=== PATIENT | male | born 1940 | race Caucasian/White ===

== ENCOUNTER → 2018-06-03 06:51 | Outpatient (CLI) | payer MEDICARE, OTHER, SELFPAY ==
[2018-06-03 08:54] LABS: Add Manual Diff / Slide Review NO; Basophils Percent Auto 0.9 % (0-2); Hematocrit 46.8 % (41-53); Hemoglobin 16.1 g/dL (13.5-17.5); Lymphocytes Percent Auto 34.8 % (25-40); Mean Corpuscular HGB Conc 34.3 % (30-36); Mean Corpuscular Hemoglobin 31.5 PG (26-34); Mean Corpuscular Volume 91.9 fL (80-100); Monocytes Percent Auto 7.5 % (3-14); Neutrophils Absolute Auto 2800 /uL (3000-5900); Neutrophils Percent Auto 52.8 % (50-75); Platelet Count 206 X10^3/uL (150-400); Red Blood Cell Count 5.09 X10^6/uL (4.5-5.9); Red Cell Distribution Width 12.8 % (11.6-14.8); White Blood Cell Count 5.4 X10^3/uL (4.5-11.0)
[2018-06-03 09:34] LABS: Alanine Aminotransferase 32 IU/L (21-72); Albumin 4.3 g/dL (3.5-5.0); Albumin Globulin Ratio 1.5 (1.0-2.8); Alkaline Phosphatase 36 U/L (38-126); Aspartate Aminotransferase 27 IU/L (17-59); Bilirubin Total 0.9 mg/dL (0.2-1.3); Blood Urea Nitrogen 22 mg/dL (9-20); Calcium 9.6 mg/dL (8.4-10.2); Carbon Dioxide 31 mmol/L (22-32); Chloride 103 mmol/L (98-107); Cholesterol 137 mg/dL (140-199); Estimated Glomerular Filt Rate > 60.0 mL/min (>60); Globulin 2.8 g/dL (1.7-4.1); Glucose 85 mg/dL (80-110); HDL Cholesterol 45 mg/dL (40-60); HEMOLYSIS < 15 (0-50); LDL Cholesterol Calculated 76 mg/dL (<100); Potassium 4.4 mmol/L (3.4-5.1); Sodium 144 mmol/L (137-145); Total Protein 7.1 g/dL (6.3-8.2); Triglycerides 82 mg/dL (35-150)
[2018-06-03 11:04] LABS: TSH w/ Reflex to FT4 2.77 uIU/mL (0.47-4.68)
== END ==
PROVIDERS: Family Provider Family Medicine; PCP Family Medicine; Visit Provider Family Medicine
DX: E78.5 Hyperlipidemia, unspecified (principal); I10 Essential (primary) hypertension; N40.0 Benign prostatic hyperplasia without lower urinary tract symptoms
CPT/HCPCS: 36415; 80053; 80061; 84153; 84443; 85025

== ENCOUNTER 2019-03-10 11:56 | Day surgery (SDC) | payer MEDICARE, OTHER, SELFPAY ==
[2019-03-10 12:40] VITALS: BMI 21.1
[2019-03-10 12:46] VITALS: BP 125/78; PULSE 62; RESP 17; TEMP 36.3; O2SAT 98
[2019-03-10] MEDS: SODIUM CHLORIDE 0.9% 1,000 ML 200 ML IV (13:01)
--- NOTE | 2019-03-10 13:04 | PM.HP.1 ---
History of Present Illness Date Patient Seen: 03/10/19 Time Patient Seen: 13:04 Chief complaint: [id number] Narrative: 78-year-old man presents for screening colonoscopy. Last colonoscopy approximately 16 years ago, no personal family history of colon polyps or colorectal cancers. He tolerated his prep well. No intestinal complaints, Patient History Medical History (Updated 03/10/19 @ 12:32 by Bib Elizabeth RN) Bruises easily (Acute) Constipation (Acute) Hearing aid worn (Acute) Hyperlipidemia (Acute) Urinary frequency (Acute) Wears glasses (Acute) Acne (Chronic 1957) Eczema (Chronic 2001) Hearing loss (Chronic 2008) Hip pain (Chronic 2008) Hypertension (Chronic 1994) Knee pain (Chronic 2008) Migraines (Chronic 1995) Osteoarthritis (Chronic 2011) BCC (basal cell carcinoma of skin) (Resolved 2002) Chicken pox (Resolved 1947) Measles (Resolved 1948) Mononucleosis (Resolved) Mumps (Resolved 1949) Plantar warts (Resolved 1958) SCCA (squamous cell carcinoma) of skin (Resolved 2006) Scarlet fever (Resolved) Seborrheic keratosis (Resolved 2007) Surgical History (Updated 06/06/18 @ 10:38 by Juliana Diaz) Anesthesia (Resolved) History of tonsillectomy (Resolved 1948) Family History (Updated 06/06/18 @ 10:39 by Juliana Diaz) Mother Heart disease Hypertension Hyperlipidemia Pacemaker Father COPD (chronic obstructive pulmonary disease) Sister No problems noted. Sister No problems noted. Family/Other No problems noted. Family/Other No problems noted. Social History household members: spouse Smoking Status: Former smoker Family & Social History Family History (Updated 06/06/18 @ 10:39 by Juliana Diaz) Mother Heart disease Hypertension Hyperlipidemia Pacemaker Father COPD (chronic obstructive pulmonary disease) Sister No problems noted. Sister No problems noted. Family/Other No problems noted. Family/Other No problems noted. Social History: household members spouse Tobacco & Substance use: Smoking Status Former smoker Meds Home Medications Medication Instructions Recorded Confirmed Type ASPIRIN (#ASPIRIN) 81 mg PO EVERY OTHER DAY #0 05/07/13 03/10/19 History rosuvastatin 10 mg tablet 10 mg PO QDAY #90 tab 06/09/18 03/10/19 Rx acyclovir 200 mg capsule 200 mg PO BID #90 tab 08/18/18 03/10/19 Rx lisinopril 20 mg tablet 20 mg PO QDAY #90 tab 08/18/18 03/10/19 Rx tamsulosin 0.4 mg capsule 0.8 mg PO QDAY #180 tab 08/18/18 03/10/19 Rx varicella-zoster glycoE [id number] 50 mcg IM ONCE #1 each 11/06/18 03/10/19 Rx adj(PF) 50 mcg/0.5 mL IM susp, kit Allergies Allergy/AdvReac Type Severity Reaction Status Date / Time No Known Drug Allergies Allergy Verified 03/10/19 12:33 Review of Systems Constitutional Constitutional: Denies fever(s) Eyes Eyes: Denies bulging eyes ENT Ears, Nose, Mouth, and Throat: No lip swelling Cardiovascular Cardiovascular: Denies generalize swelling Respiratory Respiratory: Denies stridor Gastrointestinal Gastrointestinal: Denies coffee ground emesis Musculoskeletal Musculoskeletal: Denies loss of height Integumentary/Breasts Skin/Breast: Denies wounds Neurologic Neurologic: Denies abnormal speech and Denies confusion Psychiatric Psychiatric: Denies confusion Endocrine Endocrine: Denies deepening of the voice Hematologic/Lymphatic Hematologic/Lymphatic: Denies lymphadenopathy Allergic/Immunologic Allergic/Immunologic: Denies lip swelling Exam Vital Signs (past 8 hours): - 03/10/19 12:46 Temperature 97.4 F L Pulse Rate 62 Respiratory Rate 17 Blood Pressure 125/78 Pulse Oximetry 98 Oxygen Delivery Method Room Air Const General: cooperative and healthy appearing Orientation: alert HENIL Head: normal to inspection Nose: nares normal Mouth: oral mucosae normal and lip normal Eyes Eyelids: eyelids normal Conjunctivae: conjunctivae normal Sclera: sclerae normal Neck Neck: supple and other (No thyromegally) Chest Chest: other (LCTAB , regular respiratory effort) Cardio Rhythm: regular rhythm Heart Sounds: S1 normal, S2 normal, no gallops, no murmurs and no rubs GI Other: abd soft nontender non distended Skin General: no rashes or lesions noted Neuro General: alert and awake Psych Appearance: grossly normal Affect: normal affect Assessment & Plan Assessment & Plan narrative: 78-year-old man here to proceed with screening colonoscopy Risks and benefits of the procedure discussed. Risks including , perforation, missed lesion, hypoxia all discussed Ready to proceed
[2019-03-10] MEDS: GLUCAGON,HUMAN RECOMBINANT 1 MG/ML VIAL IV (13:59)
[2019-03-10] MEDS: MIDAZOLAM 5 MG/5 ML VIAL IV (14:08)
[2019-03-10] MEDS: fentaNYL 250 MCG/5 ML INJ IV (14:09)
[2019-03-10 14:27] VITALS: BP 111/67; PULSE 66; RESP 19; TEMP 36.2; O2SAT 97
--- NOTE | 2019-03-10 14:29 | P.OP.ENDO_ITS ---
Operative Date/Time/Diagnoses Date of procedure: 03/10/19 Time of procedure: 14:25 Pre-op diagnosis: Screening colonoscopy Post-op diagnosis: same Procedure & Clinicians Study performed: Screening colonoscopy Same procedure as scheduled: Yes Indications: Healthy 78-year-old man presents for screening colonoscopy with average risk of colorectal cancer, last screening colonoscopy 17 years ago. Surgeon: Shaun Churchill Procedure Notes SCOAP/Timeout: Completed Procedure in detail: The patient was brought to the endoscopy suite time-out was completed. He was sedated with fentanyl and midazolam for a total of 4 of mida zolam and 62.5 of fentanyl given sequential over the course of his endoscopy. A digital rectal exam was performed that identified a very large but soft prostate and no palpable anal or rectal lesions. 160 cm colonoscope was then introduced and navigated through the rectum sigmoid colon through the flexures and into the cecum. The cecum was identified by the presence of the appendiceal orifice and a prominent ileocecal valve. The scope was then slowly withdrawn for total scope withdrawal time of 10 minutes. During the course of this all debris within the colon was suctioned and irrigated away so as to have adequate visualization of the mucosa. There were no lesions identified. The patient did have a significant amount of sigmoid diverticulosis without evidence of active infection. The scope was retroflexed within the distal rectum and no anal canal or distal rectal lesions were identified. The scope was fully withdrawn. Patient tolerated the procedure well, prep was adequate Scope withdrawal time: 10 minutes Sedation minutes: 30 Findings: diverticulosis Impression: One: Enlarged prostate Two: Sigmoid diverticulosis Recommendations: Colonscopy in 10 years Plan for aftercare: PACU and then home Follow up: as needed Disposition: PACU
[2019-03-10 14:32] VITALS: BP 113/71; PULSE 63; RESP 18; O2SAT 98
[2019-03-10 14:43] VITALS: BP 126/79; PULSE 79; RESP 15; TEMP 36.1; O2SAT 97
[2019-03-10 15:10] VITALS: BP 117/72; PULSE 65; RESP 16; TEMP 36.6; O2SAT 98
== END 2019-03-10 15:15 | disposition home or self-care (01) ==
PROVIDERS: PCP Family Medicine; Visit Provider Surgery
PROC: 0DJD8ZZ Inspection of Lower Intestinal Tract, Via Natural or Artificial Opening Endoscopic (ICD-10-PCS; CPT 45378; principal; 2019-03-10 13:00)
DX: Z12.11 Encounter for screening for malignant neoplasm of colon (principal); K57.30 Diverticulosis of large intestine without perforation or abscess without bleeding; N40.0 Benign prostatic hyperplasia without lower urinary tract symptoms; I10 Essential (primary) hypertension; E78.5 Hyperlipidemia, unspecified
CPT/HCPCS: G0121; 99152; 99153; J1610; J2250; J3010

== ENCOUNTER 2019-06-27 07:28 | Emergency (ER) | payer MEDICARE, OTHER, SELFPAY ==
[2019-06-27 07:35] VITALS: BP 150/68; PULSE 73; RESP 14; TEMP 36.2; O2SAT 97
--- NOTE | 2019-06-27 07:35 | ED_ITS ---
HPI - Chest Pain General Chief Complaint: Chest Pain Stated Complaint: tightness in chest shortness of breath Time Seen by Provider: 06/27/19 07:35 Source: patient Mode of arrival: ambulatory Limitations: no limitations History of Present Illness HPI narrative: Patient is a 78-year-old male with history of hypertension Cady presenting with increasing shortness of breath. He states 2 weeks ago he woke up with a leg cramp in his left leg he says that happen sometimes. He has not noticed significant pain while walking. However over the last 2 days he has noticed significant increasing shortness of breath with exertion. He has a 2-year-old grandson who he lives with he has noticed that he gets out of breath quite easily while playing with him. Also yesterday he took out the garbage cans something he does easily and noticed he was very short of breath. He says he does have some low-grade chest discomfort he can tell some things happening but it is not severe he wants nothing for pain. He denies any orthopnea. He does feel like his left leg is a little more swollen than his right. He has a nonproductive cough no fevers no nausea vomiting. Patient has had multiple family members on his mother's side answer uncles and grandfather have heart attacks and diet from them in their 50s. He thought sin ce he made it to 78 he was home free. Related Data Home Medications Medication Instructions Recorded Confirmed ASPIRIN (#ASPIRIN) 81 mg PO EVERY OTHER DAY #0 05/07/13 03/10/19 Previous Rx's Medication Instructions Recorded rosuvastatin 10 mg tablet 10 mg PO QDAY #90 tab 06/09/18 acyclovir 200 mg capsule 200 mg PO BID #90 tab 08/18/18 lisinopril 20 mg tablet 20 mg PO QDAY #90 tab 08/18/18 tamsulosin 0.4 mg capsule 0.8 mg PO QDAY #180 tab 08/18/18 varicella-zoster gE-AS01B (PF) 50 50 mcg IM ONCE #1 each 11/06/18 mcg/0.5 mL IM susp, kit Allergies Allergy/AdvReac Type Severity Reaction Status Date / Time No Known Drug Allergies Allergy Verified 06/27/19 07:38 Review of Systems Review of Systems ROS Unobtainable: All systems reviewed & are unremarkable except as noted in HPI and below Constitutional Constitutional: Denies chills, Denies fatigue, Denies fever(s), Denies lethargy and Denies weakness Eyes Eyes: Denies change in vision, Denies eye discharge, Denies irritation and Denies loss of vision ENT Ears, Nose, Mouth, and Throat: Denies change in voice, Denies neck pain and Denies sore throat Cardiovascular Cardiovascular: Reports as per HPI, Reports chest pain, Denies diaphoresis, Denies syncope, Reports leg edema, Denies lightheadedness, Reports dyspnea, Reports dyspnea on exertion and Denies orthopnea Respiratory Respiratory: Reports as per HPI, Reports cough, Denies excessive phlegm production, Denies pain on inspiration, Reports dyspnea, Reports dyspnea on exertion and Denies wheezing Gastrointestinal Gastrointestinal: Denies abdominal pain, Denies change in bowel habits, Denies diarrhea, Denies nausea and Denies vomiting Genitourinary Genitourinary: Denies hematuria, Denies flank pain, Denies urinary incontinence and Denies urinary urgency Musculoskeletal Musculoskeletal: Denies neck pain Integumentary/Breasts Skin/Breast: Denies pruritus, Denies erythema, Denies rash and Denies wounds Neurologic Neurologic: Denies confusion, Denies syncope, Denies loss of vision and Denies weakness Psychiatric Psychiatric: Denies anxiety, Denies confusion, Denies depression, Denies homicidal ideation and Denies suicidal ideation Endocrine Endocrine: Denies fatigue and Denies flushing Allergic/Immunologic Allergic/Immunologic: Denies wheezing [facility] Medical History Acne (Chronic 1957) BCC (basal cell carcinoma of skin) (Resolved 2002) Bruises easily (Acute) Chicken pox (Resolved 1947) Constipation (Acute) Eczema (Chronic 2001) Hearing aid worn (Acute) Hearing loss (Chronic 2008) Hip pain (Chronic 2008) Hyperlipidemia (Acute) Hypertension (Chronic 1994) Knee pain (Chronic 2008) Measles (Resolved 194) Migraines (Chronic 1995) Mononucleosis (Resolved) Mumps (Resolved 1949) Osteoarthritis (Chronic 2011) Plantar warts (Resolved 1958) Scarlet fever (Resolved) SCCA (squamous cell carcinoma) of skin (Resolved 2006) Seborrheic keratosis (Resolved 2007) Urinary frequency (Acute) Wears glasses (Acute) Surgical History Anesthesia (Resolved) History of tonsillectomy (Resolved 1948) Family History (Updated 06/06/18 @ 10:39 by Juliana Diaz) Mother Heart disease Hypertension Hyperlipidemia Pacemaker Father COPD (chronic obstructive pulmonary disease) Sister No problems noted. Sister No problems noted. Family/Other No problems noted. Family/Other No problems noted. Social History household members: spouse Smoking Status: Former smoker Family History Mother Heart disease Hypertension Hyperlipidemia Pacemaker Father COPD (chronic obstructive pulmonary disease) Sister No problems noted. Sister No problems noted. Family/Other No problems noted. Family/Other No problems noted. Social History household members: spouse Smoking Status: Former smoker Exam Initial Vital Signs Initial Vital Signs: Vital Signs Temperature 97.2 F L 06/27/19 07:35 Pulse Rate 73 06/27/19 07:35 Respiratory Rate 14 06/27/19 07:35 Blood Pressure 150/68 H 06/27/19 07:35 Pulse Oximetry 97 06/27/19 07:35 GENERAL: Alert well-appearing elderly male and in no acute distress. HEENT: Head atraumatic,EOMI, pupils reactive, face symmetric, moist mucous membranes CARDIOVASCULAR: Regular rate and rhythm without murmurs, rubs or gallops. RESPIRATORY: Breath sounds equal bilaterally, no wheezes rales or rhonchi. ABDOMEN: Soft, nontender. Normoactive bowel sounds all 4 quadrants. No guarding or rebound. EXTREMITIES: Normal range of motion, no clubbing or edema. Neurovascularly intact Left lower leg minimal calf tenderness NEUROLOGICAL: Alert and oriented x4.Normal gait and speech. Cranial nerves II through XII grossly intact. SKIN: Warm, dry, no laceration, no petechiae, no rashes or lesions. Course Orders Ordered: ED Orders 06/27/19 07:34 EKG-12 Lead Stat 06/27/19 07:45 B Type Natriuretic Peptide Stat Complete Blood Count AUTO DIFF Stat Comprehensive Metabolic Panel Stat D Dimer Stat Lipase Stat Partial Thromboplastin Time Stat Prothrombin Time INR Stat Troponin & CK Cardiac Panel Stat 06/27/19 07:46 XR chest 1V Stat 06/27/19 07:47 US periph venous low extrem lt Stat Discontinued Medications Aspirin (Aspirin Chew) 324 mg PO NOW ONE Stop: 06/27/19 07:47 Last Admin: 06/27/19 08:07 Dose: 324 mg Documented by: MIS Vital Signs Vital signs: Vital Signs - 8 hr 06/27/19 07:35 06/27/19 08:00 06/27/19 08:36 Temperature 97.2 F L Pulse Rate 73 67 60 Respiratory Rate 14 15 16 Blood Pressure 150/68 H Blood Pressure [Right Arm] 119/66 130/68 Pulse Oximetry 97 94 96 06/27/19 11:07 06/27/19 11:35 Temperature Pulse Rate 64 Respiratory Rate 12 Blood Pressure 122/71 Blood Pressure [Right Arm] 122/70 Pulse Oximetry MDM - Chest Pain Lab Data Attestation: I reviewed the patient's lab results. Result diagrams: 06/27/19 07:45 06/27/19 07:45 Labs: Lab Results 06/27/19 06/27/19 06/27/19 Range/Units 07:45 07:45 07:45 WBC 5.5 (4.5-11.0) X10^3/uL RBC 5.10 (4.5-5.9) X10^6/uL Hgb 16.1 (13.5-17.5) g/dL Hct 46.5 (41-53) % MCV 91.2 (80-100) fL MCH 31.5 (26-34) PG MCHC 34.6 (30-36) % RDW 13.5 (11.6-14.8) % Plt Count 190 (150-400) X10^3/uL Neut % (Auto) 56.8 (50-75) % Lymph % (Auto) 31.0 (25-40) % [place] % (Auto) 6.0 (3-14) % Eos % (Auto) 5.3 H (2-4) % Baso % (Auto) 0.9 (0-2) % Neut # (Auto) 3100 (9845-0397) /uL Lymph # (Auto) 1700 (0938-5010) /uL [place] # (Auto) 300 (0-900) /uL Eos # (Auto) 300 (0-450) /uL Baso # (Auto) 0 (0-100) /uL PT 11.0 (10.1-12.7) SECONDS INR 1.0 (0.9-1.3) APTT 32 (26.4-36.2) SECONDS D-Dimer < 200 (<230) ng/mL Sodium 140 (137-145) mmol/L Potassium 4.0 (3.4-5.1) mmol/L Chloride 106 (98-107) mmol/L Carbon Dioxide 24 (22-32) mmol/L BUN 20 (9-20) mg/dL Creatinine 0.90 (0.66-1.25) mg/dL Estimated GFR > 60.0 (>60) mL/min BUN/Creatinine Ratio 22.2 H (6-22) Glucose 132 H (80-110) mg/dL Calcium 9.6 (8.4-10.2) mg/dL Total Bilirubin 0.8 (0.2-1.3) mg/dL AST 23 (17-59) IU/L ALT 22 (21-72) IU/L Alkaline Phosphatase 39 (38-126) U/L Total Creatine Kinase 179 H (55-170) U/L CK-MB (CK-2) 2.40 H (<2.37) ng/mL CK-MB (CK-2) Rel Index 1.3 L (1.5-5.0) % Troponin I < 0.012 (0.01-0.034) ng/mL B-Natriuretic Peptide < 100 (<100) Total Protein 7.2 (6.3-8.2) g/dL Albumin 4.5 (3.5-5.0) g/dL Globulin 2.7 (1.7-4.1) g/dL Albumin/Globulin Ratio 1.7 (1.0-2.8) Lipase 53 (23-300) U/L Imaging Data Chest x-ray: Radiologist's impression: PROCEDURE: XR CHEST 1V INDICATIONS: short of breath TECHNIQUE: One view of the chest was acquired. COMPARISON: [facility], , CHEST 2 VIEW, 01/10/2017, 10:25. FINDINGS: Surgical changes and devices: None. Lungs and pleura: Lungs are clear. The aeration of the lungs is similar to the previous exam. No pleural effusions or pneumothorax. Mediastinum: Mediastinal contours appear normal. Heart size is normal. There is aortic atherosclerosis. Bones and chest wall: No suspicious bony lesions. Widening of the bilateral acromioclavicular joints is present, which may be related to surgery or previous trauma. Overlying soft tissues appear unremarkable. IMPRESSION: Stable chest. No acute cardiopulmonary process is evident. Dictated by: Javy Arriaga M.D. on 06/27/2019 at 7:25 Venous US: Radiologist's impression: PROCEDURE: US PERIPH VENOUS LOW EXTREM LT INDICATIONS: SWELLING AND PAIN TECHNIQUE: Real-time imaging, as well as color and pulse Doppler interrogation, were per formed of the lower extremity deep veins from the inguinal ligament to the popliteal fossa. COMPARISON: None. FINDINGS: The common femoral, femoral and popliteal veins are normally compressible, and free of intraluminal thrombus. Color and pulse Doppler demonstrate normal phasic intraluminal flow. There is normal augmentation response to distal compression maneuver. Targeted sonographic imaging of the left calf was performed at the site of the patient's area of pain/concern. At this location there are 2 small hypoechoic regions identified within the gastrocnemius muscle. There may be a trace amount of fluid extending along the aponeurosis between the gastrocnemius and soleus muscles. IMPRESSION: 1. No evidence of upper extremity deep vein thrombosis. 2. Hypoechoic regions within it the left gastrocnemius muscle probably represent small intramuscular tears versus hematomas. The need for better characterization utilizing MRI may be determined clinically. Dictated by: Javy Arriaga M.D. on 06/27/2019 at 7:55 Approved by: Javy Arriaga M.D. on 06/27/2019 at 7:57 ECG Data Attestation: I personally reviewed and interpreted this ECG as follows: Prior ECG tracings: not available for review Interpretation: Normal sinus rhythm rate 73 p.r. interval 180 QRS 106 QTC 398 Q- wave noted in lead [address] elevations no depressions or T-wave inversions MDM Narrative Medical decision making narrative: Patient has no EKG changes negative troponin negative BM negative D-dimer negative venous ultrasound. However his symptoms of shortness of breath with exertion all are quite concerning. He even states that he had difficulty walking from the parking lot into the emergency department. Unfortunately [facility] does not have capability stress test over the weekend. In patient will need to be transferred 9:[address] Billings hospitalist [facility] as an update on patient's symptoms test results. He happily accepts patient request he be kept NPO for possible stress test today Initially patient hesitant about going to [facility] for stress test wanted outpatient follow-up instead. I spoke with Dr. Aaron in regards to outpatient stress test it is questionable if it could be done next week. Patient actually agrees to be transferred to [facility] for stress test. Discharge Plan Departure Patient Disposition: [facility] Clinical Impression: Chest pain Qualifiers: Chest pain type: unspecified Qualified Code(s): R07.9 - Chest pain, unspecified Discharge Date/Time: 06/27/19 11:39 Prescriptions: No Action ASPIRIN (#ASPIRIN) 81 mg PO EVERY OTHER DAY Qty: 0 RF: 0 tamsulosin [Flomax] 0.4 mg capsule 0.8 mg PO QDAY Qty: 180 RF: 3 lisinopril [Prinivil] 20 mg tablet 20 mg PO QDAY Qty: 90 RF: 3 acyclovir [Zovirax] 200 mg capsule 200 mg PO BID Qty: 90 RF: 3 rosuvastatin [Crestor] 10 mg tablet 10 mg PO QDAY Qty: 90 RF: 1 varicella-zoster [id number]-AS01B (PF) [Shingrix (PF)] 50 mcg/0.5 mL suspension for reconstitution 50 mcg IM ONCE Qty: 1 RF: 0 Referrals: Keena Michel DO [Primary Care Provider] - Stand Alone Forms: Against Medical Advice
--- NOTE | 2019-06-27 07:46 | DI.RAD.S_ITS ---
PROCEDURE: XR CHEST 1V INDICATIONS: short of breath TECHNIQUE: One view of the chest was acquired. COMPARISON: [facility], , CHEST 2 VIEW, 01/10/2017, 10:25. FINDINGS: Surgical changes and devices: None. Lungs and pleura: Lungs are clear. The aeration of the lungs is similar to the previous exam. No pleural effusions or pneumothorax. Mediastinum: Mediastinal contours appear normal. Heart size is normal. There is aortic atherosclerosis. Bones and chest wall: No suspicious bony lesions. Widening of the bilateral acromioclavicular joints is present, which may be related to surgery or previous trauma. Overlying soft tissues appear unremarkable. IMPRESSION: Stable chest. No acute cardiopulmonary process is evident. Dictated by: Javy Arriaga M.D. on 06/27/2019 at 7:25 Approved by: Javy Arriaga M.D. on 06/27/2019 at 7:25
--- NOTE | 2019-06-27 07:47 | DI.US.S_ITS ---
PROCEDURE: US PERIPH VENOUS LOW EXTREM LT INDICATIONS: SWELLING AND PAIN TECHNIQUE: Real-time imaging, as well as color and pulse Doppler interrogation, were performed of the lower extremity deep veins from the inguinal ligament to the popliteal fossa. COMPARISON: None. FINDINGS: The common femoral, femoral and popliteal veins are normally compressible, and free of intraluminal thrombus. Color and pulse Doppler demonstrate normal phasic intraluminal flow. There is normal augmentation response to distal compression maneuver. Targeted sonographic imaging of the left calf was performed at the site of the patient's area of pain/concern. At this location there are 2 small hypoechoic regions identified within the gastrocnemius muscle. There may be a trace amount of fluid extending along the aponeurosis between the gastrocnemius and soleus muscles. IMPRESSION: 1. No evidence of upper extremity deep vein thrombosis. 2. Hypoechoic regions within it the left gastrocnemius muscle probably represent small intramuscular tears versus hematomas. The need for better characterization utilizing MRI may be determined clinically. Dictated by: Javy Arriaga M.D. on 06/27/2019 at 7:55 Approved by: Javy Arriaga M.D. on 06/27/2019 at 7:57
[2019-06-27 07:55] LABS: Add Manual Diff / Slide Review NO; Basophils Absolute Auto 0 /uL (0-100); Basophils Percent Auto 0.9 % (0-2); Eosinophils Absolute Auto 300 /uL (0-450); Eosinophils Percent Auto 5.3 % (2-4); Hematocrit 46.5 % (41-53); Hemoglobin 16.1 g/dL (13.5-17.5); Lymphocytes Absolute Auto 1700 /uL (1100-4500); Mean Corpuscular HGB Conc 34.6 % (30-36); Mean Corpuscular Hemoglobin 31.5 PG (26-34); Mean Corpuscular Volume 91.2 fL (80-100); Monocytes Absolute Auto 300 /uL (0-900); Neutrophils Absolute Auto 3100 /uL (1500-7000); Neutrophils Percent Auto 56.8 % (50-75); Platelet Count 190 X10^3/uL (150-400); Red Cell Distribution Width 13.5 % (11.6-14.8); White Blood Cell Count 5.5 X10^3/uL (4.5-11.0)
[2019-06-27 08:00] VITALS: BP 119/66; PULSE 67; RESP 15; O2SAT 94
[2019-06-27 08:00] LABS: Alanine Aminotransferase 22 IU/L (21-72); Albumin 4.5 g/dL (3.5-5.0); Albumin Globulin Ratio 1.7 (1.0-2.8); Alkaline Phosphatase 39 U/L (38-126); Aspartate Aminotransferase 23 IU/L (17-59); BUN Creatinine Ratio 22.2 (6-22); Bilirubin Total 0.8 mg/dL (0.2-1.3); Blood Urea Nitrogen 20 mg/dL (9-20); Calcium 9.6 mg/dL (8.4-10.2); Carbon Dioxide 24 mmol/L (22-32); Chloride 106 mmol/L (98-107); Creatine Kinase 179 U/L (55-170); D Dimer < 200 ng/mL (<230); Estimated Glomerular Filt Rate > 60.0 mL/min (>60); Globulin 2.7 g/dL (1.7-4.1); Glucose 132 mg/dL (80-110); HEMOLYSIS < 15 (0-50); Lipase 53 U/L (23-300); PTT Partial Thromboplastin Tim 32 SECONDS (26.4-36.2); Sodium 140 mmol/L (137-145); Total Protein 7.2 g/dL (6.3-8.2)
[2019-06-27] MEDS: ASPIRIN 81 MG CHEW TAB 324 MG PO (08:07)
[2019-06-27 08:11] LABS: B Type Natriuretic Peptide < 100 (<100)
[2019-06-27 08:12] LABS: Troponin I < 0.012 ng/mL (0.01-0.034)
[2019-06-27 08:16] LABS: CKMB % Relative Index 1.3 % (1.5-5.0)
[2019-06-27 08:36] VITALS: BP 130/68; PULSE 60; RESP 16; O2SAT 96
[2019-06-27 11:07] VITALS: BP 122/70; PULSE 64; RESP 12
[2019-06-27 11:35] VITALS: BP 122/71
== END 2019-06-27 11:39 | disposition short-term general hospital (02) ==
PROVIDERS: Emergency Provider Emergency Medicine; PCP Family Medicine
DX: R07.9 Chest pain, unspecified (principal)
CPT/HCPCS: 71045; 80053; 82550; 82553; 83690; 83880; 84484; 85025; 85379; 85610; 85730; 93005; 93971; 99283; 99285

== ENCOUNTER → 2019-06-30 11:12 | Outpatient (CLI) | payer MEDICARE, OTHER, SELFPAY ==
--- NOTE | 2019-06-30 12:17 | PM.TREADMILL ---
Cardiac Stress Test Report Referral & Results Date Patient Seen: 06/30/19 Requesting provider: Keena Michel Indication: Chest pressure Rest ECG: Unremarkable Procedure Note: Today following both written and verbal informed consent, the patient was exercised according to a standard Michael protocol. The patient exercised for a total of 9 minutes 2nd achieving a maximum heart rate of 146. Patient's maximum systolic blood pressure was 160. This was an estimated 10.[address]-T segment changes identified Functional aerobic impairment way off the scale due to his age. Estimated exercise capacity equal to that of an active 56-year-old Single PVC identified Patient's heart rate did rapidly returned to baseline with cessation of activity, in less than 30 seconds actually Impression: Excellent exercise capacity No evidence of ischemia Please note: Actual ECG tracings can be found in the PACS system.
== END ==
PROVIDERS: PCP Family Medicine; Visit Provider Family Medicine
DX: R07.89 Other chest pain (principal)
CPT/HCPCS: 93016; 93017; 93018

== ENCOUNTER → 2019-07-21 06:53 | Outpatient (CLI) | payer MEDICARE, OTHER, SELFPAY ==
[2019-07-21 07:56] LABS: Blood Urea Nitrogen 23 mg/dL (9-20); Calcium 9.5 mg/dL (8.4-10.2); Carbon Dioxide 28 mmol/L (22-32); Chloride 105 mmol/L (98-107); Cholesterol 135 mg/dL (140-199); Estimated Glomerular Filt Rate > 60.0 mL/min (>60); Glucose 96 mg/dL (80-110); HDL Cholesterol 45 mg/dL (40-60); HEMOLYSIS < 15 (0-50); LDL Cholesterol Calculated 76 mg/dL (<100); Potassium 4.1 mmol/L (3.4-5.1); Sodium 141 mmol/L (137-145); Triglycerides 69 mg/dL (35-150)
[2019-07-21 08:25] LABS: Prostate Specific Antigen 1.37 ng/mL (0.10-4.00)
== END ==
PROVIDERS: PCP Family Medicine; Visit Provider Family Medicine
DX: Z13.6 Encounter for screening for cardiovascular disorders (principal); I10 Essential (primary) hypertension; Z12.5 Encounter for screening for malignant neoplasm of prostate
CPT/HCPCS: 36415; 80048; 80061; 84153; G0103

== ENCOUNTER → 2020-09-23 07:15 | Outpatient (CLI) | payer MEDICARE, OTHER, SELFPAY ==
[2020-09-23 09:02] LABS: Alanine Aminotransferase 25 IU/L (<50); Albumin 3.6 g/dL (3.5-5.0); Albumin Globulin Ratio 1.6 (1.0-2.8); Alkaline Phosphatase 33 U/L (38-126); Aspartate Aminotransferase 25 IU/L (17-59); BUN Creatinine Ratio 21.2 (6-22); Bilirubin Total 0.6 mg/dL (0.2-1.3); Blood Urea Nitrogen 21 mg/dL (9-20); Calcium 9.2 mg/dL (8.4-10.2); Carbon Dioxide 30 mmol/L (22-32); Chloride 106 mmol/L (98-107); Cholesterol 141 mg/dL (140-199); Estimated Glomerular Filt Rate > 60.0 mL/min (>60); Globulin 2.3 g/dL (1.7-4.1); Glucose 86 mg/dL (80-110); HDL Cholesterol 46 mg/dL (40-60); HEMOLYSIS < 15 (0-50); LDL Cholesterol Calculated 80 mg/dL (<100); Potassium 4.2 mmol/L (3.4-5.1); Sodium 138 mmol/L (137-145); Total Protein 5.9 g/dL (6.3-8.2); Triglycerides 73 mg/dL (35-150)
== END ==
PROVIDERS: PCP Family Medicine; Referring Provider Family Medicine; Visit Provider Family Medicine
DX: E78.5 Hyperlipidemia, unspecified (principal); N40.0 Benign prostatic hyperplasia without lower urinary tract symptoms; I10 Essential (primary) hypertension
CPT/HCPCS: 36415; 80053; 80061; 84153

== ENCOUNTER 2022-05-22 14:30 | Outpatient (RCR) | payer MEDICARE, OTHER, SELFPAY ==
--- NOTE | 2022-04-13 18:23 | PT.OIE ---
Current Diagnoses Muscle weakness (generalized) (04/13/22) Pain in right finger(s) (04/13/22) Past Medical History (Last Updated 06/02/20 @ 17:31 by JEANNETTE Avila) Acne (1957) BCC (basal cell carcinoma of skin) (2002) Bruises easily Chicken pox (194) Constipation Eczema (2001) Hearing aid worn Hearing loss (2008) Hip pain (2008) Hyperlipidemia Hypertension (1994) Impacted cerumen of both ears Knee pain (2008) Measles (194) Migraines (1995) Mononucleosis Mumps (1949) Neck muscle strain Osteoarthritis (2011) Plantar warts (195) Scarlet fever SCCA (squamous cell carcinoma) of skin (2006) Seborrheic keratosis (2007) Urinary frequency Wears glasses Past Surgical History (Last Reviewed 06/27/19 @ 07:52 by Kiya Sung DO) Anesthesia History of tonsillectomy (1948) Visit Care Team Role Provider Type Nadine Mcelod MD Attending Provider Physician Family Provider Primary Care Provider Referring Provider Specialty: Family Practice Address: [address] [place] [address], [facility] Email: [email or web address] Physical Therapy Initial Evaluation PT-OP-A Visit Information Start: 04/09/22 17:08 Freq: Status: Active Protocol: Document 04/13/22 13:04 LRN (Rec: 04/13/22 13:54 LRN [id number]) Out-Patient Physical Therapy Visit Information Visit Information Visit Type Initial Evaluation Visit Start Time 13:04 Visit Stop Time 13:51 Total Visit Minutes 51 Visit Number 1 Evaluation Information Evaluation Date 04/13/22 Precautions Precautions Mild concussion as child, Controlled HBP, 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 PT-OP-B Current Condition Start: 04/09/22 17:08 Freq: Status: Active Protocol: Document 04/13/22 13:04 LRN (Rec: 04/13/22 13:54 LRN [id number]) Current Condition History of Current Condition Onset Date March 24, 2022 Current Complaints R hand 5th digit: can't straighten DIP jt & difficulty flexing PIP jt. History of Current Condition Playing ball with 5 yr old grandson, misjudged the catch and it hit the R 5th digit straight on. After a week went to and told it was probably broken. Did not have X-ray taken. R hand: Little finger:can't straighten the DIP jt, and difficulty flexing with the PIP jt. Treatment Goals Patient/Caregiver Goals Pt goal with therapy is to get full range of motion of the R hand little finger, and gain horticultural farmworker strength of the little finger (opening jar). Can't use a tool like a hammer because when pounding the R little finger hurts. Gardening/Planting in yard. Prior Functional Status Baseline Function- ADL's Independent Baseline Function- Mobility Independent Baseline Function- Other Normal use of R hand. Pt is R handed. Current Functional Impairments (Reported) Functional Limitations- ADL's Can't actively straighten the R 5th digit DIP jt & difficulty bending R 5th digit PIP jt. Difficulty gripping and opening a jar. Personal Factors Other Personal Factors That May Effect L thumb arthritis. Therapy/Recovery PT-OP-C Subjective Start: 04/09/22 17:08 Freq: Status: Active Protocol: Document 04/13/22 13:04 LRN (Rec: 04/13/22 13:54 LRN [id number]) Patient Questionnaires Quick Dash- Upper Extremity Quick Dash UE Score 22.7 Quick Dash UE Impairment 20 to 39% Impaired (Score 20- 39) Quick Dash- Work and Sports Modules Quick Dash W&S Score Work Module 50 Quick Dash Work and Sport Impairment 40 to 59% Impaired (Score 40- 59) OP-PT Pain Assessment Pain Assessment Grid Paper Pain Assessment Grid Completed Yes Location R little finger Pain Location Details DIP & sometimes PIP jts Intensity 4 Scale Used Numeric (0 - 10) Description Throbbing,With Movement Frequency Constant Pain Aggravating Factors Changing Position Pain Alleviating Factors Medication Other Pain Alleviating Factors IBP daily PT-OP-H Neuro Start: 04/09/22 17:08 Freq: Status: Active Protocol: Document 04/13/22 13:04 LRN (Rec: 04/13/22 13:54 LRN [id number]) Sensation Evaluation Gross Sensation Gross Sensation WNL PT-OP-J Posture/Palpation/Skin Start: 04/09/22 17:08 Freq: Status: Active Protocol: Document 04/13/22 13:04 LRN (Rec: 04/13/22 18:22 LRN [id number]) Palpation Assessment Location R hand 5th digit Palpation Location DIP jt Palpation Details PIP jt: Decreased volar to dorsal and lateral to medial glide. DIP jt: Increased volar glide at DIP jt. PT-OP-K Range of Motion Start: 04/09/22 17:08 Freq: Status: Active Protocol: Document 04/13/22 13:04 LRN (Rec: 04/13/22 13:54 [facility] [id number]) Wrist Goniometric Range of Motion Wrist Right Wrist ROM WFL No Flexion Active (degrees) 60 Extension Active (degrees) 53 Ulnar Deviation Active (degrees) 35 Radial Deviation Active (degrees) 20 Left Wrist ROM WFL Yes Flexion Active (degrees) 71 Extension Active (degrees) 60 Ulnar Deviation Active (degrees) 20 Radial Deviation Active (degrees) 25 Finger Goniometric Range of Motion Finger Right Fifth Finger ROM WFL No MCP Flexion Active (degrees) 90 MCP Extension Active (degrees) 0 PIP Flexion Active (degrees) 66 DIP Flexion Active (70-90 degrees) 76 DIP Extension Passive (0 degrees) 0 H Tip to Base of Palm (0 cm) 4 H Comments DIP active ext lacks 62 deg's to neutral. Tip to Base of Palm - 4 cm Left Fifth Finger ROM WFL Yes MCP Flexion Active (degrees) 90 MCP Extension Active (degrees) 0 PIP Flexion Active (degrees) 96 DIP Flexion Active (70-90 degrees) 86 Tip to Distal Palmar Crease (0 cm) 0 H PT-OP-M Strength Start: 04/09/22 17:08 Freq: Status: Active Protocol: Document 04/13/22 13:04 LRSoraida (Rec: 04/13/22 13:54 [facility] [id number]) Wrist Strength Wrist Manual Muscle Testing Right Comments Generally 4+/5 Left Comments Generally 5/5 Finger/Thumb Strength Finger Manual Muscle Testing Right Fifth Flexion (fingers C8) 5 Normal Extension (thumb C8) 5 Normal Adduction 4 Good Abduction (fingers T1) 4+ Good+ Left Fifth Comments Generally 5/5 Hand Systems Integration Engineer/Pinch Strength Hand Dominance Hand Dominance Right Hand Strength Right Comments Systems Integration Engineer strength in kgs: 20, 23, 26 (avg is 23 kgs) (NOTE: Pt is R handed) Left Comments Systems Integration Engineer strength in kgs: 28, 24, 22 (avg is 14.6 kg) PT-OP-Q Treatments Start: 04/09/22 17:08 Freq: Status: Active Protocol: Document 04/13/22 13:04 LRN (Rec: 04/13/22 13:54 LRN [id number]) Self-Care/Home Management Treatment Education Other Education Discussed results of evaluation, goals, and plan of care (POC). Pt agreeable to goals and POC. Activities Self-Care/Home Management Activities I/S pt to keep the R 5th digit DIP jt splinted while doing the wrist and MCP/PIP jt AROM for flexion. PT-OP-T Assessment and Plan Start: 04/09/22 17:08 Freq: Status: Active Protocol: Document 04/13/22 13:04 LRN (Rec: 04/13/22 13:54 LRN [id number]) Physical Therapy Assessment Rehab Potential Rehabilitation Potential Good Evaluation Complexity Number of Personal Factors/Comorbidities 1-2 Number of Body Systems Impaired 4 or More Clinical Presentation at Evaluation Evolving Impairments Impairments Pain,ROM,Soft Tissue Mobility, Strength Goals Three Impairment Pain with use of tools Order Filler Goal (LTG) Pt goal is to be able to use a tool like a hammer without R little finger (DIP jt) pain when pounding. LTG Duration 07/12/22 Two Impairment Difficutly gripping Senior Care Goal (LTG) Pt will be able to get full range of motion of the R hand little finger, and improve R hand horticultural farmworker strength of the little finger to be able to opening a jar, or do pruning activities. LTG Duration 07/12/22 One Impairment Pt lacks appropriate self care HEP Short Term Goal (STG) Pt will be educated in self care for edema management (hot /cold, RICE) STG Duration 04/20/22 Senior Care Goal (LTG) Pt will be independent with a self care HEP of finger ext ROM/strengtening, wrist/hand finger flex ROM ex's and intrinsic, tendon gliding exercises after R 5th digit DIP tendon has healed. LTG Duration 07/12/22 Assessment Summary Assessment The pt presents with a mallet finger deformity following an incident of ball jamming the R little finger 03/24/22. The pt has his full R 5th digit in a splint, stabilizing his PIP & DIP jt in full extension. It is recommended that the pt remain splinted at the DIP jt for 6-8 weeks from time of injury, while working on improving his wrist and MCP joint mobility and general hand strength. Swelling or edema is not evident. The pt will be progressed through ROM ex to normalize his R wrist and finger mobility while splinted at the DIP joint in neutral. If the pt is unable to show improvement at that time he will be referred back for orthopedic referral by a hand specialist. Physical Therapy Plan Frequency and Duration Frequency of Treatment 1-2x/week Plan of Care Start Date 04/13/22 Plan of Care End Date 07/12/22 Therapeutic Interventions Therapeutic Interventions Home Exercise Program,Patient/ Caregiver Education,Self-Care/ Home Management,Taping, Therapeutic Exercises Modalities Cold Pack/Ice Massage Next Visit Focus/Plan Next Note Type Treatment Note Next Visit Plan Pt to splint R 5th DIP jt for 6-8 wks from injury (05/19/22 = 8 wks), cont with R wrist, and PROM of R 5th digit PIP and MCP jt ROM. Strengthening of intinsics and horticultural farmworker strength unless not able to stabilize the DIP jt. Educate in use of hot/cold and elevation for swelling. Tendon gliding without R hand 5th digit. If pt not able to keep the R 5th digit DIP jt extended after 8 weeks, then refer back for orthopedic hand specialist assessment.
--- NOTE | 2022-04-13 18:23 | PT.OPPOC ---
Physical, Occupational & Speech Therapy At [facility] Current Diagnoses Muscle weakness (generalized) (04/13/22) Pain in right finger(s) (04/13/22) Visit Care Team Role Provider Type Nadine Mcleod MD Attending Provider Physician Family Provider Primary Care Provider Referring Provider Specialty: [facility] Practice Address: [address] [place] [address], [facility] Email: [email or web address] Plan Of Care PT-OP-T Assessment and Plan Start: 04/09/22 17:08 Freq: Status: Active Protocol: Document 04/13/22 13:04 LRN (Rec: 04/13/22 13:54 LRN [id number]) Physical Therapy Assessment Rehab Potential Rehabilitation Potential Good Evaluation Complexity Number of Personal Factors/Comorbidities 1-2 Number of Body Systems Impaired 4 or More Clinical Presentation at Evaluation Evolving Impairments Impairments Pain,ROM,Soft Tissue Mobility, Strength Goals Three Impairment Pain with use of tools Longterm Goal (LTG) Pt goal is to be able to use a tool like a hammer without R little finger (DIP jt) pain when pounding. LTG Duration 07/12/22 Two Impairment Difficutly gripping Decontaminator Goal (LTG) Pt will be able to get full range of motion of the R hand little finger, and improve R hand resource program teacher strength of the little finger to be able to opening a jar, or do pruning activities. LTG Duration 07/12/22 One Impairment Pt lacks appropriate self care HEP Short Term Goal (STG) Pt will be educated in self care for edema management (hot /cold, RICE) STG Duration 04/20/22 Decontaminator Goal (LTG) Pt will be independent with a self care HEP of finger ext ROM/strengtening, wrist/hand finger flex ROM ex's and intrinsic, tendon gliding exercises after R 5th digit DIP tendon has healed. LTG Duration 07/12/22 Assessment Summary Assessment The pt presents with a mallet finger deformity following an incident of ball jamming the R little finger 03/24/22. The pt has his full R 5th digit in a splint, stabilizing his PIP & DIP jt in full extension. It is recommended that the pt remain splinted at the DIP jt for 6-8 weeks from time of injury, while working on improving his wrist and MCP joint mobility and general hand strength. Swelling or edema is not evident. The pt will be progressed through ROM ex to normalize his R wrist and finger mobility while splinted at the DIP joint in neutral. If the pt is unable to show improvement at that time he will be referred back for orthopedic referral by a hand specialist. Physical Therapy Plan Frequency and Duration Frequency of Treatment 1-2x/week Plan of Care Start Date 04/13/22 Plan of Care End Date 07/12/22 Therapeutic Interventions Therapeutic Interventions Home Exercise Program,Patient/ Caregiver Education,Self-Care/ Home Management,Taping, Therapeutic Exercises Modalities Cold Pack/Ice Massage Next Visit Focus/Plan Next Note Type Treatment Note Next Visit Plan Pt to splint R 5th DIP jt for 6-8 wks from injury (05/19/22 = 8 wks), cont with R wrist, and PROM of R 5th digit PIP and MCP jt ROM. Strengthening of intinsics and resource program teacher strength unless not able to stabilize the DIP jt. Educate in use of hot/cold and elevation for swelling. Tendon gliding without R hand 5th digit. If pt not able to keep the R 5th digit DIP jt extended after 8 weeks, then refer back for orthopedic hand specialist assessment. Plan of Care Dates Plan of Care Start Date 04/13/22 Plan of Care End Date 07/12/22 Electronically Signed by: Ernestina Baker, PT 04/13/22 3741 If you are in agreement with this Plan of Care, please return a signed and dated copy. I have reviewed this Plan of Care and certify that the skilled therapy services above are required to meet the patient?s needs. Physician Signature Date Printed Name and Credentials Clinical Instructor Signature Printed Name and Credentials
--- NOTE | 2022-04-17 12:35 | PT.OTN ---
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 PT-OP-B Current Condition Start: 04/09/22 17:08 Freq: Status: Active Protocol: Document 04/13/22 13:04 LRN (Rec: 04/13/22 13:54 LRN [id number]) Current Condition History of Current Condition Onset Date March 24, 2022 Current Complaints R hand 5th digit: can't straighten DIP jt & difficulty flexing PIP jt. History of Current Condition Playing ball with 5 yr old grandson, misjudged the catch and it hit the R 5th digit straight on. After a week went to MD and told it was probably broken. Did not have X-ray taken. R hand: Little finger:can't straighten the DIP jt, and difficulty flexing with the PIP jt. Treatment Goals Patient/Caregiver Goals Pt goal with therapy is to get full range of motion of the R hand little finger, and gain chief medical director strength of the little finger (opening jar). Can't use a tool like a hammer because when pounding the R little finger hurts. Gardening/Planting in yard. Prior Functional Status Baseline Function- ADL's Independent Baseline Function- Mobility Independent Baseline Function- Other Normal use of R hand. Pt is R handed. Current Functional Impairments (Reported) Functional Limitations- ADL's Can't actively straighten the R 5th digit DIP jt & difficulty bending R 5th digit PIP jt. Difficulty gripping and opening a jar. Personal Factors Other Personal Factors That May Effect L thumb arthritis. Therapy/Recovery PT-OP-C Subjective Start: 04/09/22 17:08 Freq: Status: Active Protocol: Document 04/17/22 11:17 LRN (Rec: 04/17/22 12:34 LRN [id number]) OP-PT Subjective Patient Comments Patient Comments Made self splint using popsicle stick placed on top of the finger and taped. PT-OP-H Neuro Start: 04/09/22 17:08 Freq: Status: Active Protocol: Document 04/13/22 13:04 LRN (Rec: 04/13/22 13:54 LRN [id number]) Sensation Evaluation Gross Sensation Gross Sensation WNL PT-OP-J Posture/Palpation/Skin Start: 04/09/22 17:08 Freq: Status: Active Protocol: Document 04/13/22 13:04 LRN (Rec: 04/13/22 18:22 LRN [id number]) Palpation Assessment Location R hand 5th digit Palpation Location DIP jt Palpation Details PIP jt: Decreased volar to dorsal and lateral to medial glide. DIP jt: Increased volar glide at DIP jt. PT-OP-K Range of Motion Start: 04/09/22 17:08 Freq: Status: Active Protocol: Document 04/13/22 13:04 LRN (Rec: 04/13/22 13:54 LRN [id number]) Wrist Goniometric Range of Motion Wrist Right Wrist ROM WFL No Flexion Active (degrees) 60 Extension Active (degrees) 53 Ulnar Deviation Active (degrees) 35 Radial Deviation Active (degrees) 20 Left Wrist ROM WFL Yes Flexion Active (degrees) 71 Extension Active (degrees) 60 Ulnar Deviation Active (degrees) 20 Radial Deviation Active (degrees) 25 Finger Goniometric Range of Motion Finger Right Fifth Finger ROM WFL No MCP Flexion Active (degrees) 90 MCP Extension Active (degrees) 0 PIP Flexion Active (degrees) 66 DIP Flexion Active (70-90 degrees) 76 DIP Extension Passive (0 degrees) 0 H Tip to Base of Palm (0 cm) 4 H Comments DIP active ext lacks 62 deg's to neutral. Tip to Base of Palm - 4 cm Left Fifth Finger ROM WFL Yes MCP Flexion Active (degrees) 90 MCP Extension Active (degrees) 0 PIP Flexion Active (degrees) 96 DIP Flexion Active (70-90 degrees) 86 Tip to Distal Palmar Crease (0 cm) 0 H PT-OP-M Strength Start: 04/09/22 17:08 Freq: Status: Active Protocol: Document 04/13/22 13:04 LRN (Rec: 04/13/22 13:54 N [id number]) Wrist Strength Wrist Manual Muscle Testing Right Comments Generally 4+/5 Left Comments Generally 5/5 Finger/Thumb Strength Finger Manual Muscle Testing Right Fifth Flexion (fingers C8) 5 Normal Extension (thumb C8) 5 Normal Adduction 4 Good Abduction (fingers T1) 4+ Good+ Left Fifth Comments Generally 5/5 Hand Cloth Sponger/Pinch Strength Hand Dominance Hand Dominance Right Hand Strength Right Comments Cloth Sponger strength in kgs: 20, 23, 26 (avg is 23 kgs) (NOTE: Pt is R handed) Left Comments Cloth Sponger strength in kgs: 28, 24, 22 (avg is 14.6 kg) PT-OP-Q Treatments Start: 04/09/22 17:08 Freq: Status: Active Protocol: Document 04/17/22 11:17 LRN (Rec: 04/17/22 12:34 [facility] [id number]) Therapeutic Exercises Sitting Exercises Finger AB Sitting Exercise Name Tarun & Isotonic 4th-5th digit finger AB strengthening Side right Equipment Used Hand on flat suface Reps/Minutes 10 SH x 10 Comments Cuing to hold contaction 10 S Finger AD Sitting Exercise Name 4th-5th digit finger AD strengthening Side right Equipment Used Hand on flat suface Reps/Minutes 10 SH x 10 Comments Cuing to hold contaction 10 S R 5th digit PIP jt Sitting Exercise Name R 5th digit ext hold & active flex Side right Reps/Minutes 5 SH for ext/active flex X 10 Comments Cuing to keep jt stable and hold ext strengthening. Forearm Sup/Pron Sitting Exercise Name Active forearm sup/pron - elbow bent 90 deg's Side right Reps/Minutes 30x Wrist UD/RD Sitting Exercise Name Arm dependent: Active wrist UD /RD Side right Reps/Minutes 30x Wrist Flex/Ext Sitting Exercise Name Active wrist flex/ext w/elbow bent 90 deg's Side right Reps/Minutes 30x Comments Pt fatigued with shaking on ext. Wrist Ext Sitting Exercise Name Stretch to Wrist flexors Side right Reps/Minutes 10SH x 10 R MCP flex Sitting Exercise Name Flex/ext Digits 2-4 (TAble top ) Side right Reps/Minutes 30x R 5th digit MCP flex Sitting Exercise Name R 5th digit MCP flex/ext Side right Reps/Minutes 30x Self-Care/Home Management Treatment Education Other Education Educated pt in use of hot/cold and elevation for swelling. PT-OP-T Assessment and Plan Start: 04/09/22 17:08 Freq: Status: Active Protocol: Document 04/17/22 11:17 LRN (Rec: 04/17/22 12:34 LRN [id number]) Physical Therapy Assessment Goals Three Impairment Pain with use of tools Correction Goal (LTG) Pt goal is to be able to use a tool like a hammer without R little finger (DIP jt) pain when pounding. LTG Duration 07/12/22 Two Impairment Difficutly gripping Correction Goal (LTG) Pt will be able to get full range of motion of the R hand little finger, and improve R hand chief medical director strength of the little finger to be able to opening a jar, or do pruning activities. LTG Duration 07/12/22 One Impairment Pt lacks appropriate self care HEP Short Term Goal (STG) Pt will be educated in self care for edema management (hot /cold, RICE) STG Duration 04/20/22 (04/17/22: MET GOAL) Parachutist/Combatant Diver Qualified Goal (LTG) Pt will be independent with a self care HEP of finger ext ROM/strengtening, wrist/hand finger flex ROM ex's and intrinsic, tendon gliding exercises after R 5th digit DIP tendon has healed. (04/17/22: I/S in HEP: wrist/ R hand finger AROM ex with 5th digit splinted at DIP jt, and intrinsic strengthening of 5th digit AB/AD ) LTG Duration 07/12/22 (04/17/22: Progressed) Progress Towards Goals Progress Towards Goals Progressing Toward Goals Assessment Summary Assessment Pt appears to have a good understanding of self assisted ex's he was I/S in (flex/ ext, AB/AD, wrist AROM). He appears to have a good understanding of keeping the R 5th digit DIP jt splinted. His self made splint using popsicle stick cut to size was helpful, but as pointed out, might be a little tightly wrapped below DIP jt; therefore pt to monitor for coloration and temp of R 5th digit to allow for good finger circulation. Pt would probably be better with an Oval 8 ring splint; therfore the pt will measure and order at home. Physical Therapy Plan Frequency and Duration Frequency of Treatment 1-2x/week Plan of Care Start Date 04/13/22 Plan of Care End Date 07/12/22 Next Visit Focus/Plan Next Note Type Treatment Note Next Visit Plan Assess pt ordered finger splint for appropriate fit. Pt to splint R 5th DIP jt for 6-8 wks from injury (05/19/22 = 8 wks), cont as needed with R wrist, and PROM of R 5th digit PIP/MCP jt ROM. Assess response to therapy of R wrist & R 5th digit MCP/PIP jt flex AROM. Tendon gliding without R hand 5th digit. Strengthening of intinsics and chief medical director strength unless not able to stabilize the DIP jt. If pt not able to keep the R 5th digit DIP jt extended after 8 weeks (pt 4th visit), then refer back for orthopedic hand specialist assessment.
--- NOTE | 2022-05-03 17:12 | PT.OTN ---
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 PT-OP-B Current Condition Start: 04/09/22 17:08 Freq: Status: Active Protocol: Document 04/13/22 13:04 LRN (Rec: 04/13/22 13:54 LRN [id number]) Current Condition History of Current Condition Onset Date March 24, 2022 Current Complaints R hand 5th digit: can't straighten DIP jt & difficulty flexing PIP jt. History of Current Condition Playing ball with 5 yr old grandson, misjudged the catch and it hit the R 5th digit straight on. After a week went to MD and told it was probably broken. Did not have X-ray taken. R hand: Little finger:can't straighten the DIP jt, and difficulty flexing with the PIP jt. Treatment Goals Patient/Caregiver Goals Pt goal with therapy is to get full range of motion of the R hand little finger, and gain smoking pipe liner strength of the little finger (opening jar). Can't use a tool like a hammer because when pounding the R little finger hurts. Gardening/Planting in yard. Prior Functional Status Baseline Function- ADL's Independent Baseline Function- Mobility Independent Baseline Function- Other Normal use of R hand. Pt is R handed. Current Functional Impairments (Reported) Functional Limitations- ADL's Can't actively straighten the R 5th digit DIP jt & difficulty bending R 5th digit PIP jt. Difficulty gripping and opening a jar. Personal Factors Other Personal Factors That May Effect L thumb arthritis. Therapy/Recovery PT-OP-C Subjective Start: 04/09/22 17:08 Freq: Status: Active Protocol: Document 05/03/22 13:02 LRN (Rec: 05/03/22 14:37 LRN [id number]) OP-PT Subjective Patient Comments Patient Comments No change. Has 10 finger splints because they came in packets of 5. States none worked, so he modified the one he had so that he can move all joints except the DIP jt of the R little finger. PT-OP-H Neuro Start: 04/09/22 17:08 Freq: Status: Active Protocol: Document 04/13/22 13:04 LRN (Rec: 04/13/22 13:54 LRN [id number]) Sensation Evaluation Gross Sensation Gross Sensation WNL PT-OP-J Posture/Palpation/Skin Start: 04/09/22 17:08 Freq: Status: Active Protocol: Document 04/13/22 13:04 LRN (Rec: 04/13/22 18:22 LRN [id number]) Palpation Assessment Location R hand 5th digit Palpation Location DIP jt Palpation Details PIP jt: Decreased volar to dorsal and lateral to medial glide. DIP jt: Increased volar glide at DIP jt. PT-OP-K Range of Motion Start: 04/09/22 17:08 Freq: Status: Active Protocol: Document 04/13/22 13:04 LRN (Rec: 04/13/22 13:54 LRN [id number]) Wrist Goniometric Range of Motion Wrist Right Wrist ROM WFL No Flexion Active (degrees) 60 Extension Active (degrees) 53 Ulnar Deviation Active (degrees) 35 Radial Deviation Active (degrees) 20 Left Wrist ROM WFL Yes Flexion Active (degrees) 71 Extension Active (degrees) 60 Ulnar Deviation Active (degrees) 20 Radial Deviation Active (degrees) 25 Finger Goniometric Range of Motion Finger Right Fifth Finger ROM WFL No MCP Flexion Active (degrees) 90 MCP Extension Active (degrees) 0 PIP Flexion Active (degrees) 66 DIP Flexion Active (70-90 degrees) 76 DIP Extension Passive (0 degrees) 0 H Tip to Base of Palm (0 cm) 4 H Comments DIP active ext lacks 62 deg's to neutral. Tip to Base of Palm - 4 cm Left Fifth Finger ROM WFL Yes MCP Flexion Active (degrees) 90 MCP Extension Active (degrees) 0 PIP Flexion Active (degrees) 96 DIP Flexion Active (70-90 degrees) 86 Tip to Distal Palmar Crease (0 cm) 0 H PT-OP-M Strength Start: 04/09/22 17:08 Freq: Status: Active Protocol: Document 04/13/22 13:04 LRN (Rec: 04/13/22 13:54 LRN [id number]) Wrist Strength Wrist Manual Muscle Testing Right Comments Generally 4+/5 Left Comments Generally 5/5 Finger/Thumb Strength Finger Manual Muscle Testing Right Fifth Flexion (fingers C8) 5 Normal Extension (thumb C8) 5 Normal Adduction 4 Good Abduction (fingers T1) 4+ Good+ Left Fifth Comments Generally 5/5 Hand Grocery Store Clerk/Pinch Strength Hand Dominance Hand Dominance Right Hand Strength Right Comments Grocery Store Clerk strength in kgs: 20, 23, 26 (avg is 23 kgs) (NOTE: Pt is R handed) Left Comments Grocery Store Clerk strength in kgs: 28, 24, 22 (avg is 14.6 kg) PT-OP-Q Treatments Start: 04/09/22 17:08 Freq: Status: Active Protocol: Document 05/03/22 13:02 LRN (Rec: 05/03/22 14:37 LRN [id number]) Therapeutic Exercises Sitting Exercises Finger AB Sitting Exercise Name Tarun & Isotonic 4th-5th digit finger AB strengthening Side right Equipment Used Hand on flat suface, Small rubberband Reps/Minutes 10 SH x 6, 10x 1, respectively Comments Cuing to hold contaction 10 S Finger AD Sitting Exercise Name 4th-5th digit finger AD strengthening Side right Equipment Used Hand on flat suface Reps/Minutes 10 SH x 6, 10x 1, respectively Comments Cuing to hold contaction 10 S R 5th digit PIP jt Sitting Exercise Name Ext with finger in splint Side right Equipment Used Small rubberband Reps/Minutes 15x 2 Forearm Sup/Pron Sitting Exercise Name Active forearm sup/pron - elbow bent 90 deg's Side right Reps/Minutes 30x Self-Care/Home Management Treatment Activities Self-Care/Home Management Activities Review of pt's different finger splints purchased. Discussed use of Fig 8 splint with measurements taken and ring size recommended. Issued HEP: Finger AB/AD ex Issued Lev 5 TBand. PT-OP-T Assessment and Plan Start: 04/09/22 17:08 Freq: Status: Active Protocol: Document 05/03/22 13:02 LRN (Rec: 05/03/22 14:37 LRN [id number]) Physical Therapy Assessment Goals Three Impairment Pain with use of tools Nursing Home Goal (LTG) Pt goal is to be able to use a tool like a hammer without R little finger (DIP jt) pain when pounding. LTG Duration 07/12/22 Two Impairment Difficutly gripping Nursing Home Goal (LTG) Pt will be able to get full range of motion of the R hand little finger, and improve R hand smoking pipe liner strength of the little finger to be able to opening a jar, or do pruning activities. LTG Duration 07/12/22 One Impairment Pt lacks appropriate self care HEP Short Term Goal (STG) Pt will be educated in self care for edema management (hot /cold, RICE) STG Duration 04/20/22 (04/17/22: MET GOAL) Nursing Home Goal (LTG) Pt will be independent with a self care HEP of finger ext ROM/strengtening, wrist/hand finger flex ROM ex's and intrinsic, tendon gliding exercises after R 5th digit DIP tendon has healed. (04/17/22: I/S in HEP: wrist/ R hand finger AROM ex with 5th digit splinted at DIP jt, and intrinsic strengthening of 5th digit AB/AD ) (05/03/22: HEP: R 5th Finger AB/AD & R wrist flex/ext/UD/RD strengthening). LTG Duration 07/12/22 (04/17/22: Progressed) Assessment Summary Assessment Pt self made splint of little finger is holds R 5th digit DIP jt straight, but is compressing the fat pad. Pt made aware of monitoring for circulation. He did appear to have good circulation at the end of the finger in and out of the splint. Pt appears to have been removing the splint and doing finger curls as he demonstrated he could bend the finger. Pt needs further reminders to keep straight. Pt had no recall of wrist strengthening ex's. He has been doing finger curls with R 5th digit DIP jt splinted straight. Physical Therapy Plan Frequency and Duration Frequency of Treatment 1-2x/week Plan of Care Start Date 04/13/22 Plan of Care End Date 07/12/22 Next Visit Focus/Plan Next Note Type Treatment Note Next Visit Plan NOTE: Pt to splint R 5th DIP jt for 6-8 wks from injury ( = 8 wks). Assess consistency with HEP. Active extension strengthening ; Next visit: Start gentle PROM of R 5th digit PIP/MCP jt ROM. Add to HEP (issue HO): R wrist sup/pron; R 5th digit MCP/PIP jt flex AROM; Tendon gliding without R hand 5th digit. Grocery Store Clerk strength unless not able to stabilize the DIP jt. If pt not able to keep the R 5th digit DIP jt extended after 8 weeks (pt 4th visit), then refer back for orthopedic hand specialist assessment.
--- NOTE | 2022-05-22 17:01 | PT.OTN ---
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 PT-OP-B Current Condition Start: 04/09/22 17:08 Freq: Status: Active Protocol: Document 04/13/22 13:04 LRN (Rec: 04/13/22 13:54 LRN [id number]) Current Condition History of Current Condition Onset Date March 24, 2022 Current Complaints R hand 5th digit: can't straighten DIP jt & difficulty flexing PIP jt. History of Current Condition Playing ball with 5 yr old grandson, misjudged the catch and it hit the R 5th digit straight on. After a week went to MD and told it was probably broken. Did not have X-ray taken. R hand: Little finger:can't straighten the DIP jt, and difficulty flexing with the PIP jt. Treatment Goals Patient/Caregiver Goals Pt goal with therapy is to get full range of motion of the R hand little finger, and gain calender tender strength of the little finger (opening jar). Can't use a tool like a hammer because when pounding the R little finger hurts. Gardening/Planting in yard. Prior Functional Status Baseline Function- ADL's Independent Baseline Function- Mobility Independent Baseline Function- Other Normal use of R hand. Pt is R handed. Current Functional Impairments (Reported) Functional Limitations- ADL's Can't actively straighten the R 5th digit DIP jt & difficulty bending R 5th digit PIP jt. Difficulty gripping and opening a jar. Personal Factors Other Personal Factors That May Effect L thumb arthritis. Therapy/Recovery PT-OP-C Subjective Start: 04/09/22 17:08 Freq: Status: Active Protocol: Document 05/22/22 14:36 LRN (Rec: 05/22/22 16:59 LRN [id number]) OP-PT Subjective Patient Comments Patient Comments Wearing new finger splint day and night. R pinky DIP jt hasn't been hurting as much and has been doing the ex's but not much more has changed. Feels he doesn't think he needs to wear the splint because he percieves nothing is happening. Swelling might be going down a little. States susan R hand doesn't limit him anymore and he can calender tender his pruners now. PT-OP-H Neuro Start: 04/09/22 17:08 Freq: Status: Active Protocol: Document 04/13/22 13:04 LRN (Rec: 04/13/22 13:54 LRN [id number]) Sensation Evaluation Gross Sensation Gross Sensation WNL PT-OP-J Posture/Palpation/Skin Start: 04/09/22 17:08 Freq: Status: Active Protocol: Document 04/13/22 13:04 LRN (Rec: 04/13/22 18:22 LRN [id number]) Palpation Assessment Location R hand 5th digit Palpation Location DIP jt Palpation Details PIP jt: Decreased volar to dorsal and lateral to medial glide. DIP jt: Increased volar glide at DIP jt. PT-OP-K Range of Motion Start: 04/09/22 17:08 Freq: Status: Active Protocol: Document 05/22/22 14:36 LRN (Rec: 05/22/22 16:59 LRN [id number]) Finger Goniometric Range of Motion Finger Right Fifth Finger ROM WFL No MCP Flexion Active (degrees) 94 MCP Extension Active (degrees) 0 PIP Flexion Active (degrees) 88 PIP Extension Active (degrees) 0 DIP Flexion Active (70-90 degrees) 60 L DIP Extension Active (0 degrees) 30 H Left Fifth Finger ROM WFL Yes MCP Flexion Active (degrees) 96 MCP Extension Active (degrees) 0 PIP Flexion Active (degrees) 98 PIP Extension Active (degrees) 0 DIP Flexion Active (70-90 degrees) 68 L DIP Extension Active (0 degrees) 0 H PT-OP-M Strength Start: 04/09/22 17:08 Freq: Status: Active Protocol: Document 05/22/22 14:36 LRN (Rec: 05/22/22 16:59 LRN [id number]) Finger/Thumb Strength Finger Manual Muscle Testing Right Fifth Comments Generally 5/5 Left Fifth Comments Generally 5/5 PT-OP-Q Treatments Start: 04/09/22 17:08 Freq: Status: Active Protocol: Document 05/22/22 14:36 LRN (Rec: 05/22/22 16:59 LRN [id number]) Therapeutic Exercises Sitting Exercises 5th digit AROM Sitting Exercise Name 5th digit MCP, PIP, DIP jt AROM Side right Comments ROM taken Finger AB Sitting Exercise Name Isotonic 4th-5th digit finger AB strengthening Side right Equipment Used Small rubberband Reps/Minutes 15x 2 Comments Cuing to hold contaction 10 S Finger AD Sitting Exercise Name 4th-5th digit finger AD strengthening Side right Equipment Used Small rubberband Reps/Minutes 15x 2 Comments Cuing to hold contaction 10 S R 5th digit PIP jt Sitting Exercise Name R 5th digit Ext with finger in splint Side right Equipment Used Small rubberband Reps/Minutes 15x 2 Forearm Sup/Pron Sitting Exercise Name Active forearm sup/pron - elbow bent 90 deg's Side right Reps/Minutes 30x R 5th digit MCP flex Sitting Exercise Name Reviewed self care of flex ex Side right Reps/Minutes 30x Self-Care/Home Management Treatment Education Other Education Discussed use of ring splint for 2 more weeks to achieve a more stable extension position . Activities Self-Care/Home Management Activities Reviewed HEP with focus on maintaining his R 5th digit DIP jt extension and his hand strength through finger flex/ ext/AB/AD exercises. Issued Lev 4 TBand ex's for UE ex pt is doing. PT-OP-T Assessment and Plan Start: 04/09/22 17:08 Freq: Status: Active Protocol: Document 05/22/22 14:36 LRN (Rec: 05/22/22 16:59 LRN [id number]) Physical Therapy Assessment Goals Three Impairment Pain with use of tools Audit Specialist Goal (LTG) Pt goal is to be able to use a tool like a hammer without R little finger (DIP jt) pain when pounding. (05/22/22: No pain with use of hammer) LTG Duration 07/12/22 (05/22/22: MET GOAL) Two Impairment Difficutly gripping Jail Goal (LTG) Pt will be able to get full range of motion of the R hand little finger, and improve R hand calender tender strength of the little finger to be able to opening a jar, or do pruning activities. (05/22/22: Trouble opening jar lids due L thumb arthritis. Able to do pruning activities) . LTG Duration 07/12/22 (05/22/22: MET GOAL) One Impairment Pt lacks appropriate self care HEP Short Term Goal (STG) Pt will be educated in self care for edema management (hot /cold, RICE) STG Duration 04/20/22 (04/17/22: MET GOAL) Audit Specialist Goal (LTG) Pt will be independent with a self care HEP of finger ext ROM/strengtening, wrist/hand finger flex ROM ex's and intrinsic, tendon gliding exercises after R 5th digit DIP tendon has healed. (04/17/22: I/S in HEP: wrist/ R hand finger AROM ex with 5th digit splinted at DIP jt, and intrinsic strengthening of 5th digit AB/AD ) (05/03/22: HEP: R 5th Finger AB/AD & R wrist flex/ext/UD/RD strengthening). LTG Duration 07/12/22 (04/21/22: MET GOAL) Assessment Summary Assessment Pt appears to be doing his HEP , which includes finger flex and forearm sup/pron ex's, and is familiar with his exercises. He has been wearing his finger splint day/ night. R 5th digit DIP jt demonstrates an extension lag of 30 deg's. Pt is satisfied with return of function of the L hand and is not hindered by lack of ext of his R 5th digit DIP jt; therefore he feels further assessment by an orthopedic hand specialist is not necessary. Physical Therapy Plan Frequency and Duration Frequency of Treatment 1-2x/week Plan of Care Start Date 04/13/22 Plan of Care End Date 07/12/22 Discharge Physical Therapy Discharge Reasons Plateau in Progress Discharge Comments Pt continues to experience an extension lag in his R 5th digit DIP jt. It was recommended that he see an orthopedic hand specialist for options of care, but pt doesn 't want to seek further medical assessment. He will wear the ring splint for 2 more weeks since he didn't start to splint his finger until 04/17/22. He will then have had 6 wks in the splint to stabilize his extension position. Pt can then either seek further medical care or continue ROM of the DIP jt to keep the joint mobility (pt preferred option). Thank you for your referral.
== END 2022-05-23 07:58 ==
LOC: PHYS 14:30
PROVIDERS: Family Provider Student in an Organized Health Care Education/Training Program; PCP Student in an Organized Health Care Education/Training Program; Referring Provider Student in an Organized Health Care Education/Training Program; Visit Provider Student in an Organized Health Care Education/Training Program
DX: M79.644 Pain in right finger(s) (principal); M62.81 Muscle weakness (generalized)
CPT/HCPCS: 97110; 97162; 97535

== ENCOUNTER → 2023-03-12 08:59 | Outpatient (CLI) | payer MEDICARE, OTHER, SELFPAY ==
--- NOTE | 2023-03-12 | DI.RAD.S_ITS ---
PROCEDURE: XR HIP W PEL IF DONE TARUN MIN 4V INDICATIONS: Pain in unspecified hip TECHNIQUE: AP pelvis with lateral view(s) of both hip(s). COMPARISON: [facility], , XR LUMBAR SPINE 2-3V, 03/12/2023, 9:01. FINDINGS: Bones: No fractures or dislocations. Pelvic ring appears intact. No suspicious bony lesions. Mild symmetric hip and sacroiliac joint degeneration bilaterally. Moderate degenerative disc disease in the lower lumbar spine. Soft tissues: The visualized bowel gas pattern is normal. No suspicious soft tissue calcifications. 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 Dictated by: Kasey Dunaway M.D. on 03/12/2023 at 14:11 Approved by: Kasey Dunaway M.D. on 03/12/2023 at 14:12
--- NOTE | 2023-03-12 | DI.RAD.S_ITS ---
PROCEDURE: XR LUMBAR SPINE 2-3V INDICATIONS: Pain in unspecified hip TECHNIQUE: 3 views of the lumbar spine were acquired. COMPARISON: [facility], CR, XR CHEST 1V, 06/27/2019, 8:06. FINDINGS: Bones: 5 [id number] vertebrae are present. Moderate scoliosis. There is normal bony alignment. No vertebral body compression fractures. No suspicious bony lesions. Degenerative disc disease, [id number] L2-L3, L3-L4, L4-L5 and L5-S1. Moderate to severe facet arthropathy at L4-L5 and L5-S1. Note is made of a prominent S1-S2 disc. Soft tissues: Overlying bowel gas pattern is normal. Moderate atherosclerotic calcifications. IMPRESSION: 1. [id number] degenerative disc and facet disease in lumbar spine. Dictated by: Kasey Dunaway M.D. on 03/12/2023 at 11:42 Approved by: Kasey Dunaway M.D. on 03/12/2023 at 11:53
== END ==
PROVIDERS: Family Provider Student in an Organized Health Care Education/Training Program; PCP Family Medicine; Referring Provider Family Medicine; Visit Provider Family Medicine
DX: M51.36 Other intervertebral disc degeneration, lumbar region (principal); M19.90 Unspecified osteoarthritis, unspecified site
CPT/HCPCS: 72100; 73522

== ENCOUNTER → 2023-04-16 09:17 | Outpatient (CLI) | payer MEDICARE, OTHER, SELFPAY ==
--- NOTE | 2023-04-16 | DI.RAD.S_ITS ---
PROCEDURE: XR FINGER LT MIN 2V INDICATIONS: Unspecified osteoarthritis, unspecified site TECHNIQUE: AP hand, 2 views of the 1st finger(s) acquired. COMPARISON: None. FINDINGS: Bones: No fractures or dislocations. Osteoarthritic changes throughout left thumb are seen more notably at 1st CMC joint and 1st MCP joint. No gross bony erosive changes are noted. No suspicious bony lesions. Soft tissues: No suspicious soft tissue calcifications. IMPRESSION: Osteoarthritic changes throughout left thumb. No acute fracture or dislocation. No gross soft tissue abnormalities. Dictated by: Paolo Bains M.D. on 04/16/2023 at 12:18 Approved by: Paolo Bains M.D. on 04/16/2023 at 12:19
== END ==
PROVIDERS: Family Provider Student in an Organized Health Care Education/Training Program; PCP Family Medicine; Referring Provider Family Medicine; Visit Provider Family Medicine
DX: M19.90 Unspecified osteoarthritis, unspecified site (principal)
CPT/HCPCS: 73140

== ENCOUNTER → 2023-04-22 08:04 | Outpatient (CLI) | payer MEDICARE, OTHER, SELFPAY ==
--- NOTE | 2023-04-22 08:29 | DI.MRI.S_ITS ---
PROCEDURE: MR LUMBAR SPINE WO CON INDICATIONS: Low back pain, unspecified TECHNIQUE: Noncontrast sagittal T1 spin echo and T2 fast echo, sagittal STIR, and T2 fast spin echo through the lumbar spine. In cases with scoliosis, additional coronal T2 fast spin echo may be performed. COMPARISON: None. FINDINGS: Image quality: Excellent. Alignment and Curvature: Rightward curvature of the lumbar spine with Montero angle of 16?. Bone Marrow: Marrow is of normal overall signal. No acute vertebral body compression fractures. Spinal Cord: Conus medullaris terminates at the L1 level. Visualized cord demonstrates normal signal and size. Paraspinous Soft Tissues: No paravertebral masses. Simple right renal cyst. T12-L1: No significant disc bulge. The foramina and central canal are patent. L1-L2: No significant disc bulge. The foramina and central canal are patent. L2-L3: Diffuse disc bulge, disc osteophytes, disc space narrowing, and endplate degenerative changes cause moderate left and mild right foraminal stenosis. The central canal is patent. L3-L4: Diffuse disc bulge, disc osteophytes, disc space narrowing, and endplate degenerative changes cause mild bilateral foraminal stenosis. The central canal is patent. L4-L5: Diffuse disc bulge, disc osteophytes, disc space narrowing, and endplate degenerative changes with facet hypertrophy cause moderate bilateral foraminal stenosis. The central canal is patent. L5-S1: Diffuse disc bulge, disc osteophytes, disc space narrowing, and endplate degenerative changes with facet hypertrophy cause moderate bilateral foraminal stenosis. The central canal is patent. IMPRESSION: 1. Multilevel lumbar spondylosis causing multilevel foraminal stenosis as detailed above. 2. No abnormal signal of the visualized cord. 3. No significant central canal stenosis. 4. Dextroscoliosis with a Montero angle of 16?. Dictated by: Magdaleno Macdonald M.D. on 04/22/2023 at 14:03 Approved by: Magdaleno Macdonald M.D. on 04/22/2023 at 14:11
== END ==
PROVIDERS: Family Provider Student in an Organized Health Care Education/Training Program; PCP Family Medicine; Referring Provider Family Medicine; Visit Provider Family Medicine
DX: M54.50 Low back pain, unspecified (principal); M47.817 Spondylosis without myelopathy or radiculopathy, lumbosacral region
CPT/HCPCS: 72148

== ENCOUNTER 2023-08-12 09:15 | Outpatient (RCR) | payer MEDICARE, OTHER, SELFPAY ==
--- NOTE | 2023-06-10 11:44 | PT.OIE ---
Current Diagnoses Low back pain, unspecified (06/10/23) Past Medical History (Last Reviewed 04/08/23 @ 09:06 by Gracy Champagne RN) Acne (1957) BCC (basal cell carcinoma of skin) (2002) Bruises easily Chicken pox (194) Constipation Eczema (2001) Hearing aid worn Hearing loss (2008) Hip pain (2008) Hyperlipidemia Hypertension (1994) Impacted cerumen of both ears Knee pain (2008) Measles (194) Migraines (1995) Mononucleosis Mumps (1949) Neck muscle strain Osteoarthritis (2011) Plantar warts (1958) Scarlet fever SCCA (squamous cell carcinoma) of skin (2006) Seborrheic keratosis (2007) Urinary frequency Wears glasses Past Surgical History (Last Reviewed 04/08/23 @ 09:06 by Gracy Champagne RN) Anesthesia History of tonsillectomy (1948) Visit Care Team Role Provider Type Nadine Mcleod MD Family Provider Physician Specialty: Family Practice Address: [address] [place] [address] Email: [email or web address] Kelly Hoffman MD Attending Provider Physician Primary Care Provider Referring Provider Specialty: [facility] Address: [address] [place] [address], [facility] Email: [email or web address] Physical Therapy Initial Evaluation PT-OP-A Visit Information Start: 06/10/23 08:29 Freq: Status: Active Protocol: Document 06/10/23 08:29 AB (Rec: 06/10/23 11:44 AB [id number]) Out-Patient Physical Therapy Visit Information Visit Information Visit Type Initial Evaluation Visit Start Time 08:30 Visit Stop Time 09:15 Total Visit Minutes 45 Visit Number 1 Number of EDITOR GREETING CARD Visits 0 Evaluation Information Evaluation Date 06/10/23 Precautions Precautions [place] DEE-NI' Osteopenia, HTN (controlled with medication) PT-OP-B Current Condition Start: 06/10/23 08:29 Freq: Status: Active Protocol: Document 06/10/23 08:29 AB (Rec: 06/10/23 11:44 AB [id number]) Current Condition History of Current Condition Onset Date 5 years ago Current Complaints 5-6/10 hip pain at worst, 1/10 at best; 3/10 LBP at worst, 0 -1/10 at best History of Current Condition Pt reports he has hip and low back pain with walking variable distances, sometimes within 2 blocks and sometimes within 1 mile, however he mainly has hip pain. No trouble standing, sitting or laying down for any amount of time. He denies N/T or other red flag symptoms. The pt also denies pain with any specific motions or other activities. Prior Treatments and Tests Xrays and MRI Treatment Goals Patient/Caregiver Goals To be able to be active Prior Functional Status Baseline Function- Recreation/Hobbies Walks recreationally and plays with [employer] Current Functional Impairments (Reported) Functional Limitations- Recreation/ Limited in his ability to walk Hobbies for recreation. PT-OP-C Subjective Start: 06/10/23 08:29 Freq: Status: Active Protocol: Document 06/10/23 08:29 AB (Rec: 06/10/23 11:44 AB [id number]) OP-PT Subjective Patient Comments Patient Comments See hx of current condition Patient Questionnaires Oswestry Low Back Index Oswestry Score 10/50 Oswestry Impairment 1 to 19% Impaired (Score 1-19) PT-OP-J Posture/Palpation/Skin Start: 06/10/23 08:29 Freq: Status: Active Protocol: Document 06/10/23 08:29 AB (Rec: 06/10/23 11:44 AB [id number]) Posture Evaluation Position Standing Evaluation View Anterior Shoulder Posture (L) Elevated PT-OP-K Range of Motion Start: 06/10/23 08:29 Freq: Status: Active Protocol: Document 06/10/23 08:29 AB (Rec: 06/10/23 11:44 AB [id number]) Lumbar Spine Range of Motion Lumbar Spine Active Degrees Testing Position Standing Extension 20 Rotation Left 30 Rotation Right 30 Comments flex: to distal shins SB R: fib head, SB L: to superior patella mild increase in symptoms with extension PT-OP-L Special Tests Start: 06/10/23 08:29 Freq: Status: Active Protocol: Document 06/10/23 08:29 AB (Rec: 06/10/23 11:44 AB [id number]) Special Tests Hip Special Tests Scour Test Test Results positive bilaterally PT-OP-M Strength Start: 06/10/23 08:29 Freq: Status: Active Protocol: Document 06/10/23 08:29 AB (Rec: 06/10/23 11:44 AB [id number]) Hip Strength Hip Manual Muscle Testing Right Flexion (L2) 5 Normal Extension (S1) 4- Good- Abduction 4- Good- Adduction 4 Good External Rotation 4- Good- Internal Rotation 4+ Good+ Comments Mild-mod pain with ER Left Flexion (L2) 5 Normal Extension (S1) 4- Good- Abduction 4- Good- Adduction 4 Good External Rotation 4- Good- Internal Rotation 4+ Good+ Comments Mild-mod pain with ER Knee Strength Knee Manual Muscle Testing Right Flexion (S2) 5 Normal Extension (L3) 5 Normal Left Flexion (S2) 5 Normal Extension (L3) 5 Normal Ankle/Foot Strength Ankle and Foot Manual Muscle Testing Right Dorsiflexion (L4) 5 Normal Plantarflexion (S1) 5 Normal Left Dorsiflexion (L4) 5 Normal Plantarflexion (S1) 5 Normal PT-OP-Q Treatments Start: 06/10/23 08:29 Freq: Status: Active Protocol: Document 06/10/23 08:29 AB (Rec: 06/10/23 11:44 AB [id number]) Therapeutic Exercises Supine Exercises 1 Supine Exercise Name Bridge + TrA brace Reps/Minutes 1x10 Sidelying Exercises 2 Sidelying Exercise Name Reverse clamshells Side right Reps/Minutes 1x10 1 Sidelying Exercise Name Clamshells Side right Reps/Minutes 1x10 Comments to be performed bilaterally at home Other Exercises 1 Other Exercise Name Tall kneeling hip CARs Side bilateral Reps/Minutes 1x5 PT-OP-T Assessment and Plan Start: 06/10/23 08:29 Freq: Status: Active Protocol: Document 06/10/23 08:29 AB (Rec: 06/10/23 11:44 AB [id number]) Physical Therapy Assessment Rehab Potential Rehabilitation Potential Good Evaluation Complexity Number of Personal Factors/Comorbidities 1-2 Number of Body Systems Impaired 1-2 Clinical Presentation at Evaluation Stable Impairments Impairments Pain,ROM,Strength Goals Five Impairment Outcome measure Short Term Goal (STG) Modified oswestry score to improve by 5 points or more to show improving pain symptoms and QOL. STG Duration 4 Reel Cart Operator Goal (LTG) Modified oswestry score to improve by 10 points to show resolution of pain symptoms and QOL. LTG Duration 8 Four Impairment Activity tolerance Short Term Goal (STG) Pt to report being able to walk recreationally for 1/2 mile before onset of symptoms to show improving function. STG Duration 4 Reel Cart Operator Goal (LTG) Pt to report being able to walk recreationally for 1 mile before onset of symptoms to show improving function and return to PLOF. LTG Duration 8 Three Impairment Muscular weakness Short Term Goal (STG) Gross LE MMT to improve to 4+/ 5 or better to demonstrate improving strength to improve ability to perform functional mobility, ADLs and IADLs. STG Duration 4 Senior Living Goal (LTG) Gross LE MMT to improve to 5/5 without pain to demonstrate improved strength to improve ability to perform functional mobility, ADLs and IADLs, and participate in recreational activities. LTG Duration 8 Two Impairment Lumbar spine AROM deficits Short Term Goal (STG) Pt to perform bilateral lumbar rotation to 35 degress or better to show improving lumbar spine AROM to improve ability to perform functional mobility. STG Duration 4 Reel Cart Operator Goal (LTG) Pt to perform bilateral lumbar rotation to 45 degress or better to show improving lumbar spine AROM to improve ability to perform functional mobility. LTG Duration 8 One Impairment Lumbar spine AROM deficits Short Term Goal (STG) Pt to perform left side bending to mid joint line to show improving lumbar spine AROM to improve ability to perform functional mobility. STG Duration 4 Senior Living Goal (LTG) Pt to perform left side bending to fibular head to show improving lumbar spine AROM to improve ability to perform functional mobility. LTG Duration 8 Assessment Summary Assessment Kervin Leblanc is an 82 year old male patient presenting to outpatient PT with complaints of chronic moderate bilateral hip pain and mild low back pain which are aggravated with variable walking distances. Today's PT examination revealed lumbar spine AROM deficits, muscular weakness, and reproduction of pain with specific movements as detailed above. Based on these findings, the pt would benefit from skilled PT to improve his symptoms and return to his PLOF. His rehab potential is good given his active lifestyle and motivation to participate in therapy. Physical Therapy Plan Frequency and Duration Frequency of Treatment 2x/Week Duration of treatment (weeks) 8 Plan of Care Start Date 06/10/23 Plan of Care End Date 08/12/23 Therapeutic Interventions Therapeutic Interventions Balance Training,Manual Therapy,Neuromuscular Re- education,Patient/Caregiver Education,Self-Care/Home Management,Soft Tissue Mobilization,Taping, Therapeutic Activities, Therapeutic Exercises Modalities Cold Pack/Ice Massage,Electric Stimulation,Hot Packs Next Visit Focus/Plan Next Note Type Treatment Note Next Visit Plan Review HEP. Add trunk and LE therex and neuromuscular re-ed exercises as indicated.
--- NOTE | 2023-06-10 11:44 | PT.OPPOC ---
Physical, Occupational & Speech Therapy At [facility] Current Diagnoses Low back pain, unspecified (06/10/23) Visit Care Team Role Provider Type Nadine Mcleod MD Family Provider Physician Specialty: [facility] Practice Address: [address] [place] [address], [place], [address] Email: [email or web address] Kelly Hoffman MD Attending Provider Physician Primary Care Provider Referring Provider Specialty: [facility] Address: [address] [place] [address], [facility] [place], [address] Email: [email or web address].[email or web address] Plan Of Care PT-OP-T Assessment and Plan Start: 06/10/23 08:29 Freq: Status: Active Protocol: Document 06/10/23 08:29 AB (Rec: 06/10/23 11:44 AB [id number]) Physical Therapy Assessment Rehab Potential Rehabilitation Potential Good Evaluation Complexity Number of Personal Factors/Comorbidities 1-2 Number of Body Systems Impaired 1-2 Clinical Presentation at Evaluation Stable Impairments Impairments Pain,ROM,Strength Goals Five Impairment Outcome measure Short Term Goal (STG) Modified oswestry score to improve by 5 points or more to show improving pain symptoms and QOL. STG Duration 4 Snf Goal (LTG) Modified oswestry score to improve by 10 points to show resolution of pain symptoms and QOL. LTG Duration 8 Four Impairment Activity tolerance Short Term Goal (STG) Pt to report being able to walk recreationally for 1/2 mile before onset of symptoms to show improving function. STG Duration 4 Snf Goal (LTG) Pt to report being able to walk recreationally for 1 mile before onset of symptoms to show improving function and return to PLOF. LTG Duration 8 Three Impairment Muscular weakness Short Term Goal (STG) Gross LE MMT to improve to 4+/ 5 or better to demonstrate improving strength to improve ability to perform functional mobility, ADLs and IADLs. STG Duration 4 Snf Goal (LTG) Gross LE MMT to improve to 5/5 without pain to demonstrate improved strength to improve ability to perform functional mobility, ADLs and IADLs, and participate in recreational activities. LTG Duration 8 Two Impairment Lumbar spine AROM deficits Short Term Goal (STG) Pt to perform bilateral lumbar rotation to 35 degress or better to show improving lumbar spine AROM to improve ability to perform functional mobility. STG Duration 4 Housekeeping Aid Goal (LTG) Pt to perform bilateral lumbar rotation to 45 degress or better to show improving lumbar spine AROM to improve ability to perform functional mobility. LTG Duration 8 One Impairment Lumbar spine AROM deficits Short Term Goal (STG) Pt to perform left side bending to mid joint line to show improving lumbar spine AROM to improve ability to perform functional mobility. STG Duration 4 Snf Goal (LTG) Pt to perform left side bending to fibular head to show improving lumbar spine AROM to improve ability to perform functional mobility. LTG Duration 8 Assessment Summary Assessment Kervin Leblanc is an 82 year old male patient presenting to outpatient PT with complaints of chronic moderate bilateral hip pain and mild low back pain which are aggravated with variable walking distances. Today's PT examination revealed lumbar spine AROM deficits, muscular weakness, and reproduction of pain with specific movements as detailed above. Based on these findings, the pt would benefit from skilled PT to improve his symptoms and return to his PLOF. His rehab potential is good given his active lifestyle and motivation to participate in therapy. Physical Therapy Plan Frequency and Duration Frequency of Treatment 2x/Week Duration of treatment (weeks) 8 Plan of Care Start Date 06/10/23 Plan of Care End Date 08/12/23 Therapeutic Interventions Therapeutic Interventions Balance Training,Manual Therapy,Neuromuscular Re- education,Patient/Caregiver Education,Self-Care/Home Management,Soft Tissue Mobilization,Taping, Therapeutic Activities, Therapeutic Exercises Modalities Cold Pack/Ice Massage,Electric Stimulation,Hot Packs Next Visit Focus/Plan Next Note Type Treatment Note Next Visit Plan Review HEP. Add trunk and LE therex and neuromuscular re-ed exercises as indicated. Plan of Care Dates Plan of Care Start Date 06/10/23 Plan of Care End Date 08/12/23 Electronically Signed by: Jeffery Pendleton, PT 06/10/23 5922 If you are in agreement with this Plan of Care, please return a signed and dated copy. I have reviewed this Plan of Care and certify that the skilled therapy services above are required to meet the patient?s needs. Physician Signature Date Printed Name and Credentials Clinical Instructor Signature Printed Name and Credentials
--- NOTE | 2023-06-13 09:45 | PT.OTN ---
Current Diagnoses Low back pain, unspecified (06/13/23) Physical Therapy Treatment Note PT-OP-A Visit Information Start: 06/10/23 08:29 Freq: Status: Active Protocol: Document 06/13/23 08:37 AB (Rec: 06/13/23 09:44 AB [id number]) Out-Patient Physical Therapy Visit Information Visit Information Visit Type Treatment Note Visit Start Time 08:32 Visit Stop Time 09:21 Total Visit Minutes 49 Visit Number 2 Number of ADMINISTRATIVE APPEALS TRIBUNAL MEMBER Visits 0 PT-OP-B Current Condition Start: 06/10/23 08:29 Freq: Status: Active Protocol: Document 06/10/23 08:29 AB (Rec: 06/10/23 11:44 AB [id number]) Current Condition History of Current Condition Onset Date 5 years ago Current Complaints 5-6/10 hip pain at worst, 1/10 at best; 3/10 LBP at worst, 0 -1/10 at best History of Current Condition Pt reports he has hip and low back pain with walking variable distances, sometimes within 2 blocks and sometimes within 1 mile, however he mainly has hip pain. No trouble standing, sitting or laying down for any amount of time. He denies N/T or other red flag symptoms. The pt also denies pain with any specific motions or other activities. Prior Treatments and Tests Xrays and MRI Treatment Goals Patient/Caregiver Goals To be able to be active Prior Functional Status Baseline Function- Recreation/Hobbies Walks recreationally and plays with grandkids Current Functional Impairments (Reported) Functional Limitations- Recreation/ Limited in his ability to walk Hobbies for recreation. PT-OP-C Subjective Start: 06/10/23 08:29 Freq: Status: Active Protocol: Document 06/13/23 08:37 AB (Rec: 06/13/23 09:44 AB [id number]) OP-PT Subjective Patient Comments Patient Comments The pt reports his HEP caused increased pain in his low back , specifically when performing hip CARS. He also states that he is having increased mid back pain, but this due to working on his roof. PT-OP-J Posture/Palpation/Skin Start: 06/10/23 08:29 Freq: Status: Active Protocol: Document 06/10/23 08:29 AB (Rec: 06/10/23 11:44 AB [id number]) Posture Evaluation Position Standing Evaluation View Anterior Shoulder Posture (L) Elevated PT-OP-K Range of Motion Start: 06/10/23 08:29 Freq: Status: Active Protocol: Document 06/10/23 08:29 AB (Rec: 06/10/23 11:44 AB [id number]) Lumbar Spine Range of Motion Lumbar Spine Active Degrees Testing Position Standing Extension 20 Rotation Left 30 Rotation Right 30 Comments flex: to distal shins SB R: fib head, SB L: to superior patella mild increase in symptoms with extension PT-OP-L Special Tests Start: 06/10/23 08:29 Freq: Status: Active Protocol: Document 06/10/23 08:29 AB (Rec: 06/10/23 11:44 AB [id number]) Special Tests Hip Special Tests Scour Test Test Results positive bilaterally PT-OP-M Strength Start: 06/10/23 08:29 Freq: Status: Active Protocol: Document 06/10/23 08:29 AB (Rec: 06/10/23 11:44 AB [id number]) Hip Strength Hip Manual Muscle Testing Right Flexion (L2) 5 Normal Extension (S1) 4- Good- Abduction 4- Good- Adduction 4 Good External Rotation 4- Good- Internal Rotation 4+ Good+ Comments Mild-mod pain with ER Left Flexion (L2) 5 Normal Extension (S1) 4- Good- Abduction 4- Good- Adduction 4 Good External Rotation 4- Good- Internal Rotation 4+ Good+ Comments Mild-mod pain with ER Knee Strength Knee Manual Muscle Testing Right Flexion (S2) 5 Normal Extension (L3) 5 Normal Left Flexion (S2) 5 Normal Extension (L3) 5 Normal Ankle/Foot Strength Ankle and Foot Manual Muscle Testing Right Dorsiflexion (L4) 5 Normal Plantarflexion (S1) 5 Normal Left Dorsiflexion (L4) 5 Normal Plantarflexion (S1) 5 Normal PT-OP-Q Treatments Start: 06/10/23 08:29 Freq: Status: Active Protocol: Document 06/13/23 08:37 AB (Rec: 06/13/23 09:44 AB [id number]) Cardio Equipment Recumbent Bicycle Duration (Minutes) 5 Therapeutic Exercises Supine Exercises 2 Supine Exercise Name LTRs Reps/Minutes 2 min 1 Supine Exercise Name Bridge + TrA brace Reps/Minutes 1x10 Sidelying Exercises 3 Sidelying Exercise Name Open books Side right Reps/Minutes 1x10 2 Sidelying Exercise Name Reverse clamshells Side bilateral Reps/Minutes 1x15ea 1 Sidelying Exercise Name Clamshells Side bilateral Equipment Used level 2 TB Reps/Minutes 1x15ea Standing Exercises 2 Standing Exercise Name Paloff press Side bilateral Resistance lower brule green TB Reps/Minutes 1x20 ea 1 Standing Exercise Name Crab walks Side bilateral Resistance level 2 band Reps/Minutes x 1 lap Comments 1 lap = 20ft Other Exercises 2 Other Exercise Name Tall kneeling hip ER and IR Side bilateral Resistance level 2 TB Reps/Minutes 2x15 ea Comments 1st set without TB, 2nd set with TB 1 Other Exercise Name Tall kneeling hip CARs Side bilateral Reps/Minutes 1x10 PT-OP-T Assessment and Plan Start: 06/10/23 08:29 Freq: Status: Active Protocol: Document 06/13/23 08:37 AB (Rec: 06/13/23 09:44 AB [id number]) Physical Therapy Assessment Goals Five Impairment Outcome measure Short Term Goal (STG) Modified oswestry score to improve by 5 points or more to show improving pain symptoms and QOL. STG Duration 4 Assisted Goal (LTG) Modified oswestry score to improve by 10 points to show resolution of pain symptoms and QOL. LTG Duration 8 Four Impairment Activity tolerance Short Term Goal (STG) Pt to report being able to walk recreationally for 1/2 mile before onset of symptoms to show improving function. STG Duration 4 Office Support Associate Goal (LTG) Pt to report being able to walk recreationally for 1 mile before onset of symptoms to show improving function and return to PLOF. LTG Duration 8 Three Impairment Muscular weakness Short Term Goal (STG) Gross LE MMT to improve to 4+/ 5 or better to demonstrate improving strength to improve ability to perform functional mobility, ADLs and IADLs. STG Duration 4 Office Support Associate Goal (LTG) Gross LE MMT to improve to 5/5 without pain to demonstrate improved strength to improve ability to perform functional mobility, ADLs and IADLs, and participate in recreational activities. LTG Duration 8 Two Impairment Lumbar spine AROM deficits Short Term Goal (STG) Pt to perform bilateral lumbar rotation to 35 degress or better to show improving lumbar spine AROM to improve ability to perform functional mobility. STG Duration 4 Office Support Associate Goal (LTG) Pt to perform bilateral lumbar rotation to 45 degress or better to show improving lumbar spine AROM to improve ability to perform functional mobility. LTG Duration 8 One Impairment Lumbar spine AROM deficits Short Term Goal (STG) Pt to perform left side bending to mid joint line to show improving lumbar spine AROM to improve ability to perform functional mobility. STG Duration 4 Assisted Goal (LTG) Pt to perform left side bending to fibular head to show improving lumbar spine AROM to improve ability to perform functional mobility. LTG Duration 8 Assessment Summary Assessment Due to reports of increased pain and discomfort when performing HEP, these exercises were reviewed today. The pt was educated on decreasing ROM of bridges, clamshells and reverse clamshells for the time being, until his tolerance to these improves. The pt has difficulty performing half kneeling hip CARs with good form despite verbal and visual cues, and this increases his low back pain significantly. Therefore these were removed from his HEP, and replaced by 1/2 kneeling hip ER and IR with good tolerance. The pt would benefit from skilled PT to improve his deficits and symptoms to increase his level of function. Physical Therapy Plan Next Visit Focus/Plan Next Note Type Treatment Note Next Visit Plan Assess tolerance to today's session. Continue with focus on improving core and LE strength and mobility, by adding standing strengthening exercises.
--- NOTE | 2023-06-17 09:00 | PT.OTN ---
Current Diagnoses Low back pain, unspecified (06/17/23) Physical Therapy Treatment Note PT-OP-A Visit Information Start: 06/10/23 08:29 Freq: Status: Active Protocol: Document 06/17/23 08:18 SP (Rec: 06/17/23 09:04 SP [id number]) Out-Patient Physical Therapy Visit Information Visit Information Visit Type Treatment Note Visit Start Time 08:18 Visit Stop Time 09:00 Total Visit Minutes 42 Visit Number 3 Number of SENIOR INTEGRATION ARCHITECT Visits 1 Evaluation Information Evaluation Date 06/10/23 Precautions Precautions [place] Osteopenia, HTN (controlled with medication) PT-OP-B Current Condition Start: 06/10/23 08:29 Freq: Status: Active Protocol: Document 06/10/23 08:29 AB (Rec: 06/10/23 11:44 AB [id number]) Current Condition History of Current Condition Onset Date 5 years ago Current Complaints 5-6/10 hip pain at worst, 1/10 at best; 3/10 LBP at worst, 0 -1/10 at best History of Current Condition Pt reports he has hip and low back pain with walking variable distances, sometimes within 2 blocks and sometimes within 1 mile, however he mainly has hip pain. No trouble standing, sitting or laying down for any amount of time. He denies N/T or other red flag symptoms. The pt also denies pain with any specific motions or other activities. Prior Treatments and Tests Xrays and MRI Treatment Goals Patient/Caregiver Goals To be able to be active Prior Functional Status Baseline Function- Recreation/Hobbies Walks recreationally and plays with grandkids Current Functional Impairments (Reported) Functional Limitations- Recreation/ Limited in his ability to walk Hobbies for recreation. PT-OP-C Subjective Start: 06/10/23 08:29 Freq: Status: Active Protocol: Document 06/17/23 08:18 SP (Rec: 06/17/23 09:04 SP [id number]) OP-PT Subjective Patient Comments Patient Comments Pt reports is compliant with band exercises but his back continues to hurt doing the exercises. PT-OP-J Posture/Palpation/Skin Start: 06/10/23 08:29 Freq: Status: Active Protocol: Document 06/10/23 08:29 AB (Rec: 06/10/23 11:44 AB [id number]) Posture Evaluation Position Standing Evaluation View Anterior Shoulder Posture (L) Elevated PT-OP-K Range of Motion Start: 06/10/23 08:29 Freq: Status: Active Protocol: Document 06/10/23 08:29 AB (Rec: 06/10/23 11:44 AB [id number]) Lumbar Spine Range of Motion Lumbar Spine Active Degrees Testing Position Standing Extension 20 Rotation Left 30 Rotation Right 30 Comments flex: to distal shins SB R: fib head, SB L: to superior patella mild increase in symptoms with extension PT-OP-L Special Tests Start: 06/10/23 08:29 Freq: Status: Active Protocol: Document 06/10/23 08:29 AB (Rec: 06/10/23 11:44 AB [id number]) Special Tests Hip Special Tests Scour Test Test Results positive bilaterally PT-OP-M Strength Start: 06/10/23 08:29 Freq: Status: Active Protocol: Document 06/10/23 08:29 AB (Rec: 06/10/23 11:44 AB [id number]) Hip Strength Hip Manual Muscle Testing Right Flexion (L2) 5 Normal Extension (S1) 4- Good- Abduction 4- Good- Adduction 4 Good External Rotation 4- Good- Internal Rotation 4+ Good+ Comments Mild-mod pain with ER Left Flexion (L2) 5 Normal Extension (S1) 4- Good- Abduction 4- Good- Adduction 4 Good External Rotation 4- Good- Internal Rotation 4+ Good+ Comments Mild-mod pain with ER Knee Strength Knee Manual Muscle Testing Right Flexion (S2) 5 Normal Extension (L3) 5 Normal Left Flexion (S2) 5 Normal Extension (L3) 5 Normal Ankle/Foot Strength Ankle and Foot Manual Muscle Testing Right Dorsiflexion (L4) 5 Normal Plantarflexion (S1) 5 Normal Left Dorsiflexion (L4) 5 Normal Plantarflexion (S1) 5 Normal PT-OP-Q Treatments Start: 06/10/23 08:29 Freq: Status: Active Protocol: Document 06/17/23 08:18 SP (Rec: 06/17/23 09:04 SP [id number]) Cardio Equipment Recumbent Bicycle Duration (Minutes) 5 Resistance 10 Seat Position 5 Other feel's fine Therapeutic Exercises Supine Exercises stretching Supine Exercise Name added HEP: piriformis, DKTC Side bilateral Reps/Minutes 30 SH x2 each Comments reports good hip and back stretch, initially discomfort hip then gone 2 Supine Exercise Name LTRs- HEP reviewed Reps/Minutes 10 reps 15 SH Comments good form 1 Supine Exercise Name Bridgew/ TrA- modified segmental rolling Reps/Minutes x15 Comments cued slower pacing, added segmental PPT and lift/lower- better form Sidelying Exercises 3 Sidelying Exercise Name Open books Side right Reps/Minutes 1x10 Comments ed pillows between BLEs 2 Sidelying Exercise Name Reverse clamshells Side bilateral Reps/Minutes 1x15ea Comments painfree- good form 1 Sidelying Exercise Name Clamshells Side bilateral Equipment Used level 2 TB Reps/Minutes 1x15ea Comments cued slower pacing, stacked on side Sitting Exercises lumbar flexion stretch Sitting Exercise Name Fwd, over each LE Side bilateral Equipment Used added HEP Reps/Minutes 3-5 breath hold Comments good feedback strech Standing Exercises 2 Standing Exercise Name Paloff press Side bilateral Resistance [place] TB Reps/Minutes 1x20 ea Comments cued neutral pelvis, TA, no UT recruitment, soft knee Self-Care/Home Management Treatment Education Other Education ed use pillows betwen BUEs, BLEs, under ribcage if comfortable. PT-OP-T Assessment and Plan Start: 06/10/23 08:29 Freq: Status: Active Protocol: Document 06/17/23 08:18 SP (Rec: 06/17/23 09:04 SP [id number]) Physical Therapy Assessment Goals Five Impairment Outcome measure Short Term Goal (STG) Modified oswestry score to improve by 5 points or more to show improving pain symptoms and QOL. STG Duration 4 Machine Repairer Goal (LTG) Modified oswestry score to improve by 10 points to show resolution of pain symptoms and QOL. LTG Duration 8 Four Impairment Activity tolerance Short Term Goal (STG) Pt to report being able to walk recreationally for 1/2 mile before onset of symptoms to show improving function. STG Duration 4 Machine Repairer Goal (LTG) Pt to report being able to walk recreationally for 1 mile before onset of symptoms to show improving function and return to PLOF. LTG Duration 8 Three Impairment Muscular weakness Short Term Goal (STG) Gross LE MMT to improve to 4+/ 5 or better to demonstrate improving strength to improve ability to perform functional mobility, ADLs and IADLs. STG Duration 4 Senior Care Goal (LTG) Gross LE MMT to improve to 5/5 without pain to demonstrate improved strength to improve ability to perform functional mobility, ADLs and IADLs, and participate in recreational activities. LTG Duration 8 Two Impairment Lumbar spine AROM deficits Short Term Goal (STG) Pt to perform bilateral lumbar rotation to 35 degress or better to show improving lumbar spine AROM to improve ability to perform functional mobility. STG Duration 4 Senior Care Goal (LTG) Pt to perform bilateral lumbar rotation to 45 degress or better to show improving lumbar spine AROM to improve ability to perform functional mobility. LTG Duration 8 One Impairment Lumbar spine AROM deficits Short Term Goal (STG) Pt to perform left side bending to mid joint line to show improving lumbar spine AROM to improve ability to perform functional mobility. STG Duration 4 Machine Repairer Goal (LTG) Pt to perform left side bending to fibular head to show improving lumbar spine AROM to improve ability to perform functional mobility. LTG Duration 8 Assessment Summary Assessment Tx focused on addition of stretching for increase flexibility to lumbar spine with good response. Cued modifiy bridge to segmental lift/lower for abdominal facilitation, decreased lumbar musculature recruitment. Time spent on education use pillows for spinal support in sidelying, pt reported feels better. Physical Therapy Plan Frequency and Duration Frequency of Treatment 2x/Week Duration of treatment (weeks) 8 Plan of Care Start Date 06/10/23 Plan of Care End Date 08/12/23 Therapeutic Interventions Therapeutic Interventions Balance Training,Manual Therapy,Neuromuscular Re- education,Patient/Caregiver Education,Self-Care/Home Management,Soft Tissue Mobilization,Taping, Therapeutic Activities, Therapeutic Exercises Modalities Cold Pack/Ice Massage,Electric Stimulation,Hot Packs Next Visit Focus/Plan Next Note Type Treatment Note Next Visit Plan Assess response to addition of stretching and use pillows sleeping. Add manual if needed for pain reduction. POC: Continue with focus on improving core and LE strength and mobility, by adding standing strengthening exercises.
--- NOTE | 2023-06-20 12:11 | PT.OTN ---
Current Diagnoses Low back pain, unspecified (06/20/23) Physical Therapy Treatment Note PT-OP-A Visit Information Start: 06/10/23 08:29 Freq: Status: Active Protocol: Document 06/20/23 08:35 AB (Rec: 06/20/23 12:11 AB [id number]) Out-Patient Physical Therapy Visit Information Visit Information Visit Type Treatment Note Visit Start Time 08:30 Visit Stop Time 09:15 Total Visit Minutes 45 Visit Number 4 Number of ORCHID WORKER Visits 1 Evaluation Information Evaluation Date 06/10/23 PT-OP-B Current Condition Start: 06/10/23 08:29 Freq: Status: Active Protocol: Document 06/10/23 08:29 AB (Rec: 06/10/23 11:44 AB [id number]) Current Condition History of Current Condition Onset Date 5 years ago Current Complaints 5-6/10 hip pain at worst, 1/10 at best; 3/10 LBP at worst, 0 -1/10 at best History of Current Condition Pt reports he has hip and low back pain with walking variable distances, sometimes within 2 blocks and sometimes within 1 mile, however he mainly has hip pain. No trouble standing, sitting or laying down for any amount of time. He denies N/T or other red flag symptoms. The pt also denies pain with any specific motions or other activities. Prior Treatments and Tests Xrays and MRI Treatment Goals Patient/Caregiver Goals To be able to be active Prior Functional Status Baseline Function- Recreation/Hobbies Walks recreationally and plays with grandkids Current Functional Impairments (Reported) Functional Limitations- Recreation/ Limited in his ability to walk Hobbies for recreation. PT-OP-C Subjective Start: 06/10/23 08:29 Freq: Status: Active Protocol: Document 06/20/23 08:35 AB (Rec: 06/20/23 12:11 AB [id number]) OP-PT Subjective Patient Comments Patient Comments The pt reports he has been doing well with his HEP, and feels like he is improving overall. He still has some discomfort from his back injury from working on his roof last week, but this is improving. PT-OP-J Posture/Palpation/Skin Start: 06/10/23 08:29 Freq: Status: Active Protocol: Document 06/10/23 08:29 AB (Rec: 06/10/23 11:44 AB [id number]) Posture Evaluation Position Standing Evaluation View Anterior Shoulder Posture (L) Elevated PT-OP-K Range of Motion Start: 06/10/23 08:29 Freq: Status: Active Protocol: Document 06/10/23 08:29 AB (Rec: 06/10/23 11:44 AB [id number]) Lumbar Spine Range of Motion Lumbar Spine Active Degrees Testing Position Standing Extension 20 Rotation Left 30 Rotation Right 30 Comments flex: to distal shins SB R: fib head, SB L: to superior patella mild increase in symptoms with extension PT-OP-L Special Tests Start: 06/10/23 08:29 Freq: Status: Active Protocol: Document 06/10/23 08:29 AB (Rec: 06/10/23 11:44 AB [id number]) Special Tests Hip Special Tests Scour Test Test Results positive bilaterally PT-OP-M Strength Start: 06/10/23 08:29 Freq: Status: Active Protocol: Document 06/10/23 08:29 AB (Rec: 06/10/23 11:44 AB [id number]) Hip Strength Hip Manual Muscle Testing Right Flexion (L2) 5 Normal Extension (S1) 4- Good- Abduction 4- Good- Adduction 4 Good External Rotation 4- Good- Internal Rotation 4+ Good+ Comments Mild-mod pain with ER Left Flexion (L2) 5 Normal Extension (S1) 4- Good- Abduction 4- Good- Adduction 4 Good External Rotation 4- Good- Internal Rotation 4+ Good+ Comments Mild-mod pain with ER Knee Strength Knee Manual Muscle Testing Right Flexion (S2) 5 Normal Extension (L3) 5 Normal Left Flexion (S2) 5 Normal Extension (L3) 5 Normal Ankle/Foot Strength Ankle and Foot Manual Muscle Testing Right Dorsiflexion (L4) 5 Normal Plantarflexion (S1) 5 Normal Left Dorsiflexion (L4) 5 Normal Plantarflexion (S1) 5 Normal PT-OP-Q Treatments Start: 06/10/23 08:29 Freq: Status: Active Protocol: Document 06/20/23 08:35 AB (Rec: 06/20/23 12:11 AB [id number]) Cardio Equipment Recumbent Bicycle Duration (Minutes) 5 Therapeutic Exercises Sitting Exercises lumbar flexion stretch Sitting Exercise Name 3 way lumbar flexion stretch Reps/Minutes 2 min, 3 sec holds Standing Exercises Hip flexion Side bilateral Reps/Minutes 2x15ea Comments 2nd set with level 2 TB Side crunches Standing Exercise Name Standing side crunches Side bilateral Resistance 10# Equipment Used DB Reps/Minutes 2x10 ea Hip ext Standing Exercise Name Hip ext at 45D of ABD Side bilateral Reps/Minutes 2x15 Comments BUE support 2 Standing Exercise Name Paloff press Side bilateral Resistance crow green TB; orange TB Reps/Minutes 1x15, 1x15 Comments 2nd set: press + rotation with orange TB 1 Standing Exercise Name Crab walks Side bilateral Resistance level 2 band Reps/Minutes 2 laps Comments 1 lap = 20ft Other Exercises Suitcase carry Side bilateral Resistance 10#, 20# Equipment Used DB Reps/Minutes x2 laps ea Comments 1 lap= 30ft; 20# for 2nd lap PT-OP-T Assessment and Plan Start: 06/10/23 08:29 Freq: Status: Active Protocol: Document 06/20/23 08:35 AB (Rec: 06/20/23 12:11 AB [id number]) Physical Therapy Assessment Goals Five Impairment Outcome measure Short Term Goal (STG) Modified oswestry score to improve by 5 points or more to show improving pain symptoms and QOL. STG Duration 4 Professor Of Physical Education Goal (LTG) Modified oswestry score to improve by 10 points to show resolution of pain symptoms and QOL. LTG Duration 8 Four Impairment Activity tolerance Short Term Goal (STG) Pt to report being able to walk recreationally for 1/2 mile before onset of symptoms to show improving function. STG Duration 4 Shelter Goal (LTG) Pt to report being able to walk recreationally for 1 mile before onset of symptoms to show improving function and return to PLOF. LTG Duration 8 Three Impairment Muscular weakness Short Term Goal (STG) Gross LE MMT to improve to 4+/ 5 or better to demonstrate improving strength to improve ability to perform functional mobility, ADLs and IADLs. STG Duration 4 Professor Of Physical Education Goal (LTG) Gross LE MMT to improve to 5/5 without pain to demonstrate improved strength to improve ability to perform functional mobility, ADLs and IADLs, and participate in recreational activities. LTG Duration 8 Two Impairment Lumbar spine AROM deficits Short Term Goal (STG) Pt to perform bilateral lumbar rotation to 35 degress or better to show improving lumbar spine AROM to improve ability to perform functional mobility. STG Duration 4 Professor Of Physical Education Goal (LTG) Pt to perform bilateral lumbar rotation to 45 degress or better to show improving lumbar spine AROM to improve ability to perform functional mobility. LTG Duration 8 One Impairment Lumbar spine AROM deficits Short Term Goal (STG) Pt to perform left side bending to mid joint line to show improving lumbar spine AROM to improve ability to perform functional mobility. STG Duration 4 Professor Of Physical Education Goal (LTG) Pt to perform left side bending to fibular head to show improving lumbar spine AROM to improve ability to perform functional mobility. LTG Duration 8 Assessment Summary Assessment The pt was progressed by adding additional core and LE strength and stability exercises. He required verbal cues to perform standing side crunches through full available ROM, especially when side bending towards left side, in order to help improve lumbar spine mobility. The pt was educated on continuing with HEP and using mobility exercises to help improve symptoms as needed throughout the day. The pt continues to benefit from skilled PT at this time to improve his symptoms.
--- NOTE | 2023-06-26 14:24 | PT.OTN ---
Current Diagnoses Low back pain, unspecified (06/26/23) Physical Therapy Treatment Note PT-OP-A Visit Information Start: 06/10/23 08:29 Freq: Status: Active Protocol: Document 06/26/23 13:05 AB (Rec: 06/26/23 14:24 AB [id number]) Out-Patient Physical Therapy Visit Information Visit Information Visit Type Treatment Note Visit Start Time 13:00 Visit Stop Time 13:45 Total Visit Minutes 45 Visit Number 5 Number of PERSONAL FINANCIAL REPRESENTATIVE Visits 1 PT-OP-B Current Condition Start: 06/10/23 08:29 Freq: Status: Active Protocol: Document 06/10/23 08:29 AB (Rec: 06/10/23 11:44 AB [id number]) Current Condition History of Current Condition Onset Date 5 years ago Current Complaints 5-6/10 hip pain at worst, 1/10 at best; 3/10 LBP at worst, 0 -1/10 at best History of Current Condition Pt reports he has hip and low back pain with walking variable distances, sometimes within 2 blocks and sometimes within 1 mile, however he mainly has hip pain. No trouble standing, sitting or laying down for any amount of time. He denies N/T or other red flag symptoms. The pt also denies pain with any specific motions or other activities. Prior Treatments and Tests Xrays and MRI Treatment Goals Patient/Caregiver Goals To be able to be active Prior Functional Status Baseline Function- Recreation/Hobbies Walks recreationally and plays with grandkids Current Functional Impairments (Reported) Functional Limitations- Recreation/ Limited in his ability to walk Hobbies for recreation. PT-OP-C Subjective Start: 06/10/23 08:29 Freq: Status: Active Protocol: Document 06/26/23 13:05 AB (Rec: 06/26/23 14:24 AB [id number]) OP-PT Subjective Patient Comments Patient Comments The pt reports he was able to walk for 1 mile, which is the most he has been able to walk in a while. He also reports his exercises have been helping him feel looser. Patient Reported Progress Improving PT-OP-J Posture/Palpation/Skin Start: 06/10/23 08:29 Freq: Status: Active Protocol: Document 06/10/23 08:29 AB (Rec: 06/10/23 11:44 AB [id number]) Posture Evaluation Position Standing Evaluation View Anterior Shoulder Posture (L) Elevated PT-OP-K Range of Motion Start: 06/10/23 08:29 Freq: Status: Active Protocol: Document 06/10/23 08:29 AB (Rec: 06/10/23 11:44 AB [id number]) Lumbar Spine Range of Motion Lumbar Spine Active Degrees Testing Position Standing Extension 20 Rotation Left 30 Rotation Right 30 Comments flex: to distal shins SB R: fib head, SB L: to superior patella mild increase in symptoms with extension PT-OP-L Special Tests Start: 06/10/23 08:29 Freq: Status: Active Protocol: Document 06/10/23 08:29 AB (Rec: 06/10/23 11:44 AB [id number]) Special Tests Hip Special Tests Scour Test Test Results positive bilaterally PT-OP-M Strength Start: 06/10/23 08:29 Freq: Status: Active Protocol: Document 06/10/23 08:29 AB (Rec: 06/10/23 11:44 AB [id number]) Hip Strength Hip Manual Muscle Testing Right Flexion (L2) 5 Normal Extension (S1) 4- Good- Abduction 4- Good- Adduction 4 Good External Rotation 4- Good- Internal Rotation 4+ Good+ Comments Mild-mod pain with ER Left Flexion (L2) 5 Normal Extension (S1) 4- Good- Abduction 4- Good- Adduction 4 Good External Rotation 4- Good- Internal Rotation 4+ Good+ Comments Mild-mod pain with ER Knee Strength Knee Manual Muscle Testing Right Flexion (S2) 5 Normal Extension (L3) 5 Normal Left Flexion (S2) 5 Normal Extension (L3) 5 Normal Ankle/Foot Strength Ankle and Foot Manual Muscle Testing Right Dorsiflexion (L4) 5 Normal Plantarflexion (S1) 5 Normal Left Dorsiflexion (L4) 5 Normal Plantarflexion (S1) 5 Normal PT-OP-Q Treatments Start: 06/10/23 08:29 Freq: Status: Active Protocol: Document 06/26/23 13:05 AB (Rec: 06/26/23 14:24 AB [id number]) Therapeutic Exercises Standing Exercises Lunges Standing Exercise Name Forward lunges Side bilateral Reps/Minutes 2x5 ea Comments 1 UE support SLS Side bilateral Reps/Minutes [id number] Comments light BUE support Step Ups Side bilateral Resistance 10# Equipment Used DB Reps/Minutes 2x10 ea Comments 2nd set with DB Hip flexion Side bilateral Resistance level 2 TB Reps/Minutes 2x15ea Side crunches Standing Exercise Name Standing side crunches Side bilateral Resistance 10# Equipment Used DB Reps/Minutes 2x10 ea Hip ext Standing Exercise Name Hip ext at 45D of ABD Side bilateral Reps/Minutes 2x15 Comments BUE support 2 Standing Exercise Name Paloff press + rotation Side bilateral Resistance orange TB Reps/Minutes 2x15 1 Standing Exercise Name Crab walks Side bilateral Resistance level 2 band Reps/Minutes 2 laps Comments 1 lap = 20ft Other Exercises Suitcase carry Side bilateral Resistance 20# Equipment Used DB Reps/Minutes x2 laps ea Comments 1 lap= 30ft PT-OP-T Assessment and Plan Start: 06/10/23 08:29 Freq: Status: Active Protocol: Document 06/26/23 13:05 AB (Rec: 06/26/23 14:24 AB [id number]) Physical Therapy Assessment Goals Five Impairment Outcome measure Short Term Goal (STG) Modified oswestry score to improve by 5 points or more to show improving pain symptoms and QOL. STG Duration 4 Usp Goal (LTG) Modified oswestry score to improve by 10 points to show resolution of pain symptoms and QOL. LTG Duration 8 Four Impairment Activity tolerance Short Term Goal (STG) Pt to report being able to walk recreationally for 1/2 mile before onset of symptoms to show improving function. STG Duration 4 Usp Goal (LTG) Pt to report being able to walk recreationally for 1 mile before onset of symptoms to show improving function and return to PLOF. LTG Duration 8 Three Impairment Muscular weakness Short Term Goal (STG) Gross LE MMT to improve to 4+/ 5 or better to demonstrate improving strength to improve ability to perform functional mobility, ADLs and IADLs. STG Duration 4 Rapid Transit Operator Goal (LTG) Gross LE MMT to improve to 5/5 without pain to demonstrate improved strength to improve ability to perform functional mobility, ADLs and IADLs, and participate in recreational activities. LTG Duration 8 Two Impairment Lumbar spine AROM deficits Short Term Goal (STG) Pt to perform bilateral lumbar rotation to 35 degrees or better to show improving lumbar spine AROM to improve ability to perform functional mobility. STG Duration 4 Rapid Transit Operator Goal (LTG) Pt to perform bilateral lumbar rotation to 45 degrees or better to show improving lumbar spine AROM to improve ability to perform functional mobility. LTG Duration 8 One Impairment Lumbar spine AROM deficits Short Term Goal (STG) Pt to perform left side bending to mid joint line to show improving lumbar spine AROM to improve ability to perform functional mobility. STG Duration 4 Usp Goal (LTG) Pt to perform left side bending to fibular head to show improving lumbar spine AROM to improve ability to perform functional mobility. LTG Duration 8 Assessment Summary Assessment Continued with last session's progressions, as the pt reported good tolerance. The pt reports increased hip pain/ discomfort when back to back hip strengthening exercises are performed, therefore alternating core, hip and LE strength exercises are performed. The pt continues to require verbal cues to maintain good, upright posture when performing standing exercises. Based on continued improvement, the pt would benefit from skilled PT as per his POC to improve his symptoms and return to his PLOF. Physical Therapy Plan Frequency and Duration Frequency of Treatment 2x/Week Duration of treatment (weeks) 8 Plan of Care Start Date 06/10/23 Plan of Care End Date 08/12/23 Therapeutic Interventions Therapeutic Interventions Balance Training,Manual Therapy,Neuromuscular Re- education,Patient/Caregiver Education,Self-Care/Home Management,Soft Tissue Mobilization,Taping, Therapeutic Activities, Therapeutic Exercises Modalities Cold Pack/Ice Massage,Electric Stimulation,Hot Packs Next Visit Focus/Plan Next Note Type Treatment Note Next Visit Plan Continue with focus on improving core and LE strength and mobility, by adding standing strengthening exercises.
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
--- NOTE | 2023-07-10 10:45 | PT.OTN ---
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 Visits 2 Evaluation Information Evaluation Date 06/10/23 Precautions Precautions MASHPEE Osteopenia, HTN (controlled with medication) PT-OP-B Current Condition Start: 06/10/23 08:29 Freq: Status: Active Protocol: Document 06/10/23 08:29 AB (Rec: 06/10/23 11:44 AB [id number]) Current Condition History of Current Condition Onset Date 5 years ago Current Complaints 5-6/10 hip pain at worst, 1/10 at best; 3/10 LBP at worst, 0 -1/10 at best History of Current Condition Pt reports he has hip and low back pain with walking variable distances, sometimes within 2 blocks and sometimes within 1 mile, however he mainly has hip pain. No trouble standing, sitting or laying down for any amount of time. He denies N/T or other red flag symptoms. The pt also denies pain with any specific motions or other activities. Prior Treatments and Tests Xrays and MRI Treatment Goals Patient/Caregiver Goals To be able to be active Prior Functional Status Baseline Function- Recreation/Hobbies Walks recreationally and plays with grandkids Current Functional Impairments (Reported) Functional Limitations- Recreation/ Limited in his ability to walk Hobbies for recreation. PT-OP-C Subjective Start: 06/10/23 08:29 Freq: Status: Active Protocol: Document 07/10/23 10:04 SP (Rec: 07/10/23 10:49 SP [id number]) OP-PT Subjective Patient Comments Patient Comments Pt back has been feeling better but reports some days can walks about 1 block and L> R hip start huring that need go back home. Other days can walk with little stiffness to start in B hips but then starts to loosen up until about a 1 mile before hips start to ache then know need to get back home. He reports compliant with HEP given. PT-OP-J Posture/Palpation/Skin Start: 06/10/23 08:29 Freq: Status: Active Protocol: Document 06/10/23 08:29 AB (Rec: 06/10/23 11:44 AB [id number]) Posture Evaluation Position Standing Evaluation View Anterior Shoulder Posture (L) Elevated PT-OP-K Range of Motion Start: 06/10/23 08:29 Freq: Status: Active Protocol: Document 06/10/23 08:29 AB (Rec: 06/10/23 11:44 AB [id number]) Lumbar Spine Range of Motion Lumbar Spine Active Degrees Testing Position Standing Extension 20 Rotation Left 30 Rotation Right 30 Comments flex: to distal shins SB R: fib head, SB L: to superior patella mild increase in symptoms with extension PT-OP-L Special Tests Start: 06/10/23 08:29 Freq: Status: Active Protocol: Document 06/10/23 08:29 AB (Rec: 06/10/23 11:44 AB [id number]) Special Tests Hip Special Tests Scour Test Test Results positive bilaterally PT-OP-M Strength Start: 06/10/23 08:29 Freq: Status: Active Protocol: Document 06/10/23 08:29 AB (Rec: 06/10/23 11:44 AB [id number]) Hip Strength Hip Manual Muscle Testing Right Flexion (L2) 5 Normal Extension (S1) 4- Good- Abduction 4- Good- Adduction 4 Good External Rotation 4- Good- Internal Rotation 4+ Good+ Comments Mild-mod pain with ER Left Flexion (L2) 5 Normal Extension (S1) 4- Good- Abduction 4- Good- Adduction 4 Good External Rotation 4- Good- Internal Rotation 4+ Good+ Comments Mild-mod pain with ER Knee Strength Knee Manual Muscle Testing Right Flexion (S2) 5 Normal Extension (L3) 5 Normal Left Flexion (S2) 5 Normal Extension (L3) 5 Normal Ankle/Foot Strength Ankle and Foot Manual Muscle Testing Right Dorsiflexion (L4) 5 Normal Plantarflexion (S1) 5 Normal Left Dorsiflexion (L4) 5 Normal Plantarflexion (S1) 5 Normal PT-OP-Q Treatments Start: 06/10/23 08:29 Freq: Status: Active Protocol: Document 07/10/23 10:04 SP (Rec: 07/10/23 10:49 SP [id number]) Cardio Equipment Recumbent Bicycle Duration (Minutes) 8 Resistance 9 Seat Position 3 Other 48 PRM, 2.26 Gym Equipment Shuttle Recovery unilateral squat Details good feedback response painfree and muscle effort Resistance 37# (new band) Reps/Time x20 each LE bilateral squat Details good feedback response painfree and muscle effort Resistance 75 # (2 new bands) Reps/Time x20 Therapeutic Exercises Supine Exercises stretching Supine Exercise Name piriformis- added HEP Side bilateral Reps/Minutes 60 SH Comments reports good hip and back stretch, initially discomfort hip then gone Sidelying Exercises hip abd Sidelying Exercise Name added to HEP: strength support for walking Side bilateral Resistance AROM Reps/Minutes x10 Comments cued roll fwd, stacked alignment on side- good hip abd tiring painfree Standing Exercises Monster Walks Standing Exercise Name Fwd, Bkwd, Lateral Side bilateral Resistance [place] TB Reps/Minutes 2 x 15 ft lateral, f/b 1 lap then c/o hip pain Comments cued center trunk, trail LE clearance, TA w/ neutral pelvis Manual Therapy Treatment Soft Tissue Mobilization B hips Body Location piriformis, glut med/max Mobilization Type Strumming,Sustained Pressure, Other Intensity/Depth Moderate Body Position Prone Comments MWM hip IR/ ER PROM Joint Mobilizations B hip jt Joint inferior, inferolateral, lateral glide Grade II Body Position Hooklying Comments w/ strap painfree, good feedback deeper hip stretch PT-OP-T Assessment and Plan Start: 06/10/23 08:29 Freq: Status: Active Protocol: Document 07/10/23 10:04 SP (Rec: 07/10/23 10:49 SP [id number]) Physical Therapy Assessment Goals Five Impairment Outcome measure Short Term Goal (STG) Modified oswestry score to improve by 5 points or more to show improving pain symptoms and QOL. STG Duration 4 Test Driver Goal (LTG) Modified oswestry score to improve by 10 points to show resolution of pain symptoms and QOL. LTG Duration 8 Four Impairment Activity tolerance Short Term Goal (STG) Pt to report being able to walk recreationally for 1/2 mile before onset of symptoms to show improving function. STG Duration 4 Test Driver Goal (LTG) Pt to report being able to walk recreationally for 1 mile before onset of symptoms to show improving function and return to PLOF. LTG Duration 8 Three Impairment Muscular weakness Short Term Goal (STG) Gross LE MMT to improve to 4+/ 5 or better to demonstrate improving strength to improve ability to perform functional mobility, ADLs and IADLs. STG Duration 4 Halfway Goal (LTG) Gross LE MMT to improve to 5/5 without pain to demonstrate improved strength to improve ability to perform functional mobility, ADLs and IADLs, and participate in recreational activities. LTG Duration 8 Two Impairment Lumbar spine AROM deficits Short Term Goal (STG) Pt to perform bilateral lumbar rotation to 35 degress or better to show improving lumbar spine AROM to improve ability to perform functional mobility. STG Duration 4 Test Driver Goal (LTG) Pt to perform bilateral lumbar rotation to 45 degress or better to show improving lumbar spine AROM to improve ability to perform functional mobility. LTG Duration 8 One Impairment Lumbar spine AROM deficits Short Term Goal (STG) Pt to perform left side bending to mid joint line to show improving lumbar spine AROM to improve ability to perform functional mobility. STG Duration 4 Halfway Goal (LTG) Pt to perform left side bending to fibular head to show improving lumbar spine AROM to improve ability to perform functional mobility. LTG Duration 8 Assessment Summary Assessment He reported monster walks started cause irritation to B hips after 2 sets so stopped. Pt responded well to shuttle press, manual, added piriformis stretch and active hip abduction to B hips this tx. He stated B hips felt pretty good end tx leaving. Physical Therapy Plan Frequency and Duration Frequency of Treatment 2x/Week Duration of treatment (weeks) 8 Plan of Care Start Date 06/10/23 Plan of Care End Date 08/12/23 Therapeutic Interventions Therapeutic Interventions Balance Training,Manual Therapy,Neuromuscular Re- education,Patient/Caregiver Education,Self-Care/Home Management,Soft Tissue Mobilization,Taping, Therapeutic Activities, Therapeutic Exercises Modalities Cold Pack/Ice Massage,Electric Stimulation,Hot Packs Next Visit Focus/Plan Next Note Type Treatment Note Next Visit Plan Recheck added side hip abd, piriformis stretch. POC: Continue with focus on improving core and LE strength and mobility, by adding standing strengthening exercises.
--- NOTE | 2023-07-15 10:20 | PT.OTN ---
Current Diagnoses Low back pain, unspecified (07/15/23) Physical Therapy Treatment Note PT-OP-A Visit Information Start: 06/10/23 08:29 Freq: Status: Active Protocol: Document 07/15/23 09:18 AB (Rec: 07/15/23 10:20 AB [id number]) Out-Patient Physical Therapy Visit Information Visit Information Visit Type Treatment Note Visit Start Time 09:15 Visit Stop Time 10:00 Total Visit Minutes 45 Visit Number 8 PT-OP-B Current Condition Start: 06/10/23 08:29 Freq: Status: Active Protocol: Document 06/10/23 08:29 AB (Rec: 06/10/23 11:44 AB [id number]) Current Condition History of Current Condition Onset Date 5 years ago Current Complaints 5-6/10 hip pain at worst, 1/10 at best; 3/10 LBP at worst, 0 -1/10 at best History of Current Condition Pt reports he has hip and low back pain with walking variable distances, sometimes within 2 blocks and sometimes within 1 mile, however he mainly has hip pain. No trouble standing, sitting or laying down for any amount of time. He denies N/T or other red flag symptoms. The pt also denies pain with any specific motions or other activities. Prior Treatments and Tests Xrays and MRI Treatment Goals Patient/Caregiver Goals To be able to be active Prior Functional Status Baseline Function- Recreation/Hobbies Walks recreationally and plays with grandkids Current Functional Impairments (Reported) Functional Limitations- Recreation/ Limited in his ability to walk Hobbies for recreation. PT-OP-C Subjective Start: 06/10/23 08:29 Freq: Status: Active Protocol: Document 07/15/23 09:18 AB (Rec: 07/15/23 10:20 AB [id number]) OP-PT Subjective Patient Comments Patient Comments The pt reports that Saturday he began having significantly more pain in his low back than he has recently. It has stayed at about the same level since then (4-5). Bauses of this, he has not been able to perform his HEP consistently. PT-OP-J Posture/Palpation/Skin Start: 06/10/23 08:29 Freq: Status: Active Protocol: Document 06/10/23 08:29 AB (Rec: 06/10/23 11:44 AB [id number]) Posture Evaluation Position Standing Evaluation View Anterior Shoulder Posture (L) Elevated PT-OP-K Range of Motion Start: 06/10/23 08:29 Freq: Status: Active Protocol: Document 06/10/23 08:29 AB (Rec: 06/10/23 11:44 AB [id number]) Lumbar Spine Range of Motion Lumbar Spine Active Degrees Testing Position Standing Extension 20 Rotation Left 30 Rotation Right 30 Comments flex: to distal shins SB R: fib head, SB L: to superior patella mild increase in symptoms with extension PT-OP-L Special Tests Start: 06/10/23 08:29 Freq: Status: Active Protocol: Document 06/10/23 08:29 AB (Rec: 06/10/23 11:44 AB [id number]) Special Tests Hip Special Tests Scour Test Test Results positive bilaterally PT-OP-M Strength Start: 06/10/23 08:29 Freq: Status: Active Protocol: Document 06/10/23 08:29 AB (Rec: 06/10/23 11:44 AB [id number]) Hip Strength Hip Manual Muscle Testing Right Flexion (L2) 5 Normal Extension (S1) 4- Good- Abduction 4- Good- Adduction 4 Good External Rotation 4- Good- Internal Rotation 4+ Good+ Comments Mild-mod pain with ER Left Flexion (L2) 5 Normal Extension (S1) 4- Good- Abduction 4- Good- Adduction 4 Good External Rotation 4- Good- Internal Rotation 4+ Good+ Comments Mild-mod pain with ER Knee Strength Knee Manual Muscle Testing Right Flexion (S2) 5 Normal Extension (L3) 5 Normal Left Flexion (S2) 5 Normal Extension (L3) 5 Normal Ankle/Foot Strength Ankle and Foot Manual Muscle Testing Right Dorsiflexion (L4) 5 Normal Plantarflexion (S1) 5 Normal Left Dorsiflexion (L4) 5 Normal Plantarflexion (S1) 5 Normal PT-OP-Q Treatments Start: 06/10/23 08:29 Freq: Status: Active Protocol: Document 07/15/23 09:18 AB (Rec: 07/15/23 10:20 AB [id number]) Cardio Equipment Recumbent Bicycle Duration (Minutes) 7 Resistance 7 Therapeutic Exercises Supine Exercises KTC stretch Reps/Minutes 2x30 sec ea A-P pelvic tilts Reps/Minutes 2 min 2 Supine Exercise Name LTRs Reps/Minutes 2 min 1 Supine Exercise Name Bridge + TrA Reps/Minutes 2x10 Sitting Exercises lumbar flexion stretch Sitting Exercise Name 3 way lumbar flexion stretch Reps/Minutes 2 min, 3 sec holds Manual Therapy Treatment Manual Traction Lumbar Body Position Hooklying Reps/Duration 10 min Comments using exercise ball and mob belt PT-OP-T Assessment and Plan Start: 06/10/23 08:29 Freq: Status: Active Protocol: Document 07/15/23 09:18 AB (Rec: 07/15/23 10:20 AB [id number]) Physical Therapy Assessment Goals Five Impairment Outcome measure Short Term Goal (STG) Modified oswestry score to improve by 5 points or more to show improving pain symptoms and QOL. STG Duration 4 Care Home Goal (LTG) Modified oswestry score to improve by 10 points to show resolution of pain symptoms and QOL. LTG Duration 8 Four Impairment Activity tolerance Short Term Goal (STG) Pt to report being able to walk recreationally for 1/2 mile before onset of symptoms to show improving function. STG Duration 4 Care Home Goal (LTG) Pt to report being able to walk recreationally for 1 mile before onset of symptoms to show improving function and return to PLOF. LTG Duration 8 Three Impairment Muscular weakness Short Term Goal (STG) Gross LE MMT to improve to 4+/ 5 or better to demonstrate improving strength to improve ability to perform functional mobility, ADLs and IADLs. STG Duration 4 Care Home Goal (LTG) Gross LE MMT to improve to 5/5 without pain to demonstrate improved strength to improve ability to perform functional mobility, ADLs and IADLs, and participate in recreational activities. LTG Duration 8 Two Impairment Lumbar spine AROM deficits Short Term Goal (STG) Pt to perform bilateral lumbar rotation to 35 degrees or better to show improving lumbar spine AROM to improve ability to perform functional mobility. STG Duration 4 Care Home Goal (LTG) Pt to perform bilateral lumbar rotation to 45 degrees or better to show improving lumbar spine AROM to improve ability to perform functional mobility. LTG Duration 8 One Impairment Lumbar spine AROM deficits Short Term Goal (STG) Pt to perform left side bending to mid joint line to show improving lumbar spine AROM to improve ability to perform functional mobility. STG Duration 4 Care Home Goal (LTG) Pt to perform left side bending to fibular head to show improving lumbar spine AROM to improve ability to perform functional mobility. LTG Duration 8 Assessment Summary Assessment Due to reports of increased pain symptoms, the focus of today's session was on improving symptoms and lumbar spine and hip mobility, with low level strengthening exercises. The pt reported mild improvement in symptoms. He was also educated on re- incorporating mobility and low level strengthening HEP when he has increased symptoms, as well as the use of modalities to help modulate his symptoms. The pt continues to benefit from skilled PT at this time to improve his deficits and level of function. Physical Therapy Plan Frequency and Duration Frequency of Treatment 2x/Week Duration of treatment (weeks) 8 Plan of Care Start Date 06/10/23 Plan of Care End Date 08/12/23 Therapeutic Interventions Therapeutic Interventions Balance Training,Manual Therapy,Neuromuscular Re- education,Patient/Caregiver Education,Self-Care/Home Management,Soft Tissue Mobilization,Taping, Therapeutic Activities, Therapeutic Exercises Modalities Cold Pack/Ice Massage,Electric Stimulation,Hot Packs Next Visit Focus/Plan Next Note Type Progress Note Next Visit Plan Recheck added side hip abd, piriformis stretch. POC: Continue with focus on improving core and LE strength and mobility, by adding standing strengthening exercises.
--- NOTE | 2023-07-17 10:42 | PT.OTN ---
Current Diagnoses Low back pain, unspecified (07/17/23) Physical Therapy Treatment Note PT-OP-A Visit Information Start: 06/10/23 08:29 Freq: Status: Active Protocol: Document 07/17/23 09:20 AB (Rec: 07/17/23 10:42 AB [id number]) Out-Patient Physical Therapy Visit Information Visit Information Visit Type Treatment Note Visit Start Time 09:15 Visit Stop Time 10:00 Total Visit Minutes 45 Visit Number 9 Evaluation Information Evaluation Date 06/10/23 Precautions Precautions ONEIDA Osteopenia, HTN (controlled with medication) PT-OP-B Current Condition Start: 06/10/23 08:29 Freq: Status: Active Protocol: Document 07/17/23 09:20 AB (Rec: 07/17/23 10:42 AB [id number]) Current Condition History of Current Condition Onset Date 5 years ago Current Complaints 5-6/10 hip pain at worst, 1/10 at best; 3/10 LBP at worst, 0 -1/10 at best History of Current Condition Pt reports he has hip and low back pain with walking variable distances, sometimes within 2 blocks and sometimes within 1 mile, however he mainly has hip pain. No trouble standing, sitting or laying down for any amount of time. He denies N/T or other red flag symptoms. The pt also denies pain with any specific motions or other activities. Prior Treatments and Tests Xrays and MRI Treatment Goals Patient/Caregiver Goals To be able to be active Prior Functional Status Baseline Function- Recreation/Hobbies Walks recreationally and plays with grandkids Current Functional Impairments (Reported) Functional Limitations- Recreation/ Limited in his ability to walk Hobbies for recreation. PT-OP-C Subjective Start: 06/10/23 08:29 Freq: Status: Active Protocol: Document 07/17/23 09:20 AB (Rec: 07/17/23 10:42 AB [id number]) OP-PT Subjective Patient Comments Patient Comments The pt reports he was able to walk for 1 mile with minimal pain, and he probably could have kept walking if not for the route he took. He reports that other than this past weekend's exacerbation, his pain is generally around 1/10. His pain has not been keeping him up at night. Patient Reported Progress Improving Patient Questionnaires Oswestry Low Back Index Oswestry Score 2/50 Oswestry Impairment 1 to 19% Impaired (Score 1-19) PT-OP-J Posture/Palpation/Skin Start: 06/10/23 08:29 Freq: Status: Active Protocol: Document 07/17/23 09:20 AB (Rec: 07/17/23 10:42 AB [id number]) Posture Evaluation Position Standing Evaluation View Anterior Shoulder Posture (L) Elevated PT-OP-K Range of Motion Start: 06/10/23 08:29 Freq: Status: Active Protocol: Document 07/17/23 09:20 AB (Rec: 07/17/23 10:42 AB [id number]) Lumbar Spine Range of Motion Lumbar Spine Active Degrees Testing Position Standing Extension 30 Rotation Left 50 Rotation Right 45 Comments flex: to toes SB R: fib head, SB L: to mid jt line denies pain with any motion PT-OP-L Special Tests Start: 06/10/23 08:29 Freq: Status: Active Protocol: Document 07/17/23 09:20 AB (Rec: 07/17/23 10:42 AB [id number]) Special Tests Hip Special Tests Scour Test Test Results negative bilaterally Comments Pt denies reproduction of symptoms. PT-OP-M Strength Start: 06/10/23 08:29 Freq: Status: Active Protocol: Document 07/17/23 09:20 AB (Rec: 07/17/23 10:42 AB [id number]) Hip Strength Hip Manual Muscle Testing Right Flexion (L2) 5 Normal Extension (S1) 4 Good Abduction 5 Normal Adduction 4+ Good+ External Rotation 4+ Good+ Internal Rotation 5 Normal Left Flexion (L2) 5 Normal Extension (S1) 4+ Good+ Abduction 4+ Good+ Adduction 4+ Good+ External Rotation 4+ Good+ Internal Rotation 5 Normal Knee Strength Knee Manual Muscle Testing Right Flexion (S2) 5 Normal Extension (L3) 5 Normal Left Flexion (S2) 5 Normal Extension (L3) 5 Normal Ankle/Foot Strength Ankle and Foot Manual Muscle Testing Right Dorsiflexion (L4) 5 Normal Plantarflexion (S1) 5 Normal Left Dorsiflexion (L4) 5 Normal Plantarflexion (S1) 5 Normal PT-OP-Q Treatments Start: 06/10/23 08:29 Freq: Status: Active Protocol: Document 07/17/23 09:20 AB (Rec: 07/17/23 10:42 AB [id number]) Cardio Equipment Recumbent Bicycle Duration (Minutes) 6 Resistance 9 Gym Equipment Shuttle Recovery unilateral squat Resistance 37# (new band) Reps/Time x20 each LE bilateral squat Resistance 75 # (2 new bands) Reps/Time x20 Therapeutic Exercises Supine Exercises 1 Supine Exercise Name Bridge + TrA Reps/Minutes 2x15 Sidelying Exercises hip abd Sidelying Exercise Name review Side bilateral Resistance AROM Reps/Minutes 1x10, 1x15 Comments cued roll fwd, stacked alignment on side- good hip abd tiring painfree Standing Exercises Stool hip ER/IR Side bilateral Equipment Used stool Reps/Minutes 2x10 1 Standing Exercise Name Crab walks Side bilateral Resistance level 2 band Reps/Minutes 2 laps Comments 1 lap = 20ft PT-OP-T Assessment and Plan Start: 06/10/23 08:29 Freq: Status: Active Protocol: Document 07/17/23 09:20 AB (Rec: 07/17/23 10:42 AB [id number]) Physical Therapy Assessment Goals Five Impairment Outcome measure Short Term Goal (STG) Modified oswestry score to improve by 5 points or more to show improving pain symptoms and QOL. STG Duration 4 Project Manager/Design Manager Goal (LTG) Modified oswestry score to improve by 10 points to show resolution of pain symptoms and QOL. LTG Duration 8 Four Impairment Activity tolerance Short Term Goal (STG) Pt to report being able to walk recreationally for 1/2 mile before onset of symptoms to show improving function. STG Duration 4 Group Home Goal (LTG) Pt to report being able to walk recreationally for 1 mile before onset of symptoms to show improving function and return to PLOF. LTG Duration 8 Three Impairment Muscular weakness Short Term Goal (STG) Gross LE MMT to improve to 4+/ 5 or better to demonstrate improving strength to improve ability to perform functional mobility, ADLs and IADLs. STG Duration 4 Group Home Goal (LTG) Gross LE MMT to improve to 5/5 without pain to demonstrate improved strength to improve ability to perform functional mobility, ADLs and IADLs, and participate in recreational activities. LTG Duration 8 Two Impairment Lumbar spine AROM deficits Short Term Goal (STG) Pt to perform bilateral lumbar rotation to 35 degress or better to show improving lumbar spine AROM to improve ability to perform functional mobility. STG Duration 4 Group Home Goal (LTG) Pt to perform bilateral lumbar rotation to 45 degress or better to show improving lumbar spine AROM to improve ability to perform functional mobility. LTG Duration 8 One Impairment Lumbar spine AROM deficits Short Term Goal (STG) Pt to perform left side bending to mid joint line to show improving lumbar spine AROM to improve ability to perform functional mobility. STG Duration 4 Group Home Goal (LTG) Pt to perform left side bending to fibular head to show improving lumbar spine AROM to improve ability to perform functional mobility. LTG Duration 8 Progress Towards Goals Progress Towards Goals Progressing Toward Goals Assessment Summary Assessment Kervin Leblanc has completed 8 visits of skilled PT to address complaints of low back an hip pain. Currently, the pt demonstrates good progress in his lumbar spine mobility, strength and subjective report of symptoms. However, he continues with some limitations in his ability to participate in recreational ideas. Based on this current symptom report and improvement , as well as remaining limitations, PT recommends continuing as per established POC to resolve his remaining limitations and to return to his PLOF. Physical Therapy Plan Frequency and Duration Frequency of Treatment 2x/Week Duration of treatment (weeks) 8 Plan of Care Start Date 06/10/23 Plan of Care End Date 08/12/23 Therapeutic Interventions Therapeutic Interventions Balance Training,Manual Therapy,Neuromuscular Re- education,Patient/Caregiver Education,Self-Care/Home Management,Soft Tissue Mobilization,Taping, Therapeutic Activities, Therapeutic Exercises Modalities Cold Pack/Ice Massage,Electric Stimulation,Hot Packs Next Visit Focus/Plan Next Note Type Treatment Note Next Visit Plan POC: Continue with focus on improving core and LE strength and mobility, by adding standing strengthening exercises.
--- NOTE | 2023-07-17 11:47 | PT.OPPN ---
Current Diagnoses Low back pain, unspecified (07/24/23) Physical Therapy Progress Note PT-OP-A Visit Information Start: 06/10/23 08:29 Freq: Status: Active Protocol: Document 07/24/23 11:37 AB (Rec: 07/24/23 11:46 AB [id number]) Out-Patient Physical Therapy Visit Information Visit Information Visit Type Treatment Note Visit Start Time 09:15 Visit Stop Time 10:00 Total Visit Minutes 45 Visit Number 9 Evaluation Information Evaluation Date 06/10/23 PT-OP-B Current Condition Start: 06/10/23 08:29 Freq: Status: Active Protocol: Document 07/24/23 11:37 AB (Rec: 07/24/23 11:46 AB [id number]) Current Condition History of Current Condition Onset Date 5 years ago Current Complaints 5-6/10 hip pain at worst, 1/10 at best; 3/10 LBP at worst, 0 -1/10 at best History of Current Condition Pt reports he has hip and low back pain with walking variable distances, sometimes within 2 blocks and sometimes within 1 mile, however he mainly has hip pain. No trouble standing, sitting or laying down for any amount of time. He denies N/T or other red flag symptoms. The pt also denies pain with any specific motions or other activities. Prior Treatments and Tests Xrays and MRI Prior Functional Status Baseline Function- Recreation/Hobbies Walks recreationally and plays with grandkids PT-OP-C Subjective Start: 06/10/23 08:29 Freq: Status: Active Protocol: Document 07/24/23 11:37 AB (Rec: 07/24/23 11:46 AB [id number]) OP-PT Subjective Patient Comments Patient Comments The pt reports he was able to walk for 1 mile with minimal pain, and he probably could have kept walking if not for the route he took. He reports that other than this past weekend's exacerbation, his pain is generally around 1/10. His pain has not been keeping him up at night. Patient Reported Progress Improving Patient Questionnaires Oswestry Low Back Index Oswestry Score 2/50 Oswestry Impairment 1 to 19% Impaired (Score 1-19) PT-OP-J Posture/Palpation/Skin Start: 06/10/23 08:29 Freq: Status: Active Protocol: Document 07/24/23 11:37 AB (Rec: 07/24/23 11:46 AB [id number]) Posture Evaluation Position Standing Evaluation View Anterior Shoulder Posture (L) Elevated PT-OP-K Range of Motion Start: 06/10/23 08:29 Freq: Status: Active Protocol: Document 07/24/23 11:37 AB (Rec: 07/24/23 11:46 AB [id number]) Lumbar Spine Range of Motion Lumbar Spine Active Degrees Testing Position Standing Extension 30 Rotation Left 50 Rotation Right 45 Comments flex: to toes SB R: fib head, SB L: to mid jt line denies pain with any motion PT-OP-L Special Tests Start: 06/10/23 08:29 Freq: Status: Active Protocol: Document 07/24/23 11:37 AB (Rec: 07/24/23 11:46 AB [id number]) Special Tests Hip Special Tests Scour Test Test Results negative bilaterally Comments Pt denies reproduction of symptoms. PT-OP-M Strength Start: 06/10/23 08:29 Freq: Status: Active Protocol: Document 07/24/23 11:37 AB (Rec: 07/24/23 11:46 AB [id number]) Hip Strength Hip Manual Muscle Testing Right Flexion (L2) 5 Normal Extension (S1) 4 Good Abduction 5 Normal Adduction 4+ Good+ External Rotation 4+ Good+ Internal Rotation 5 Normal Left Flexion (L2) 5 Normal Extension (S1) 4+ Good+ Abduction 4+ Good+ Adduction 4+ Good+ External Rotation 4+ Good+ Internal Rotation 5 Normal Knee Strength Knee Manual Muscle Testing Right Flexion (S2) 5 Normal Extension (L3) 5 Normal Left Flexion (S2) 5 Normal Extension (L3) 5 Normal PT-OP-T Assessment and Plan Start: 06/10/23 08:29 Freq: Status: Active Protocol: Document 07/24/23 11:37 AB (Rec: 07/24/23 11:46 AB [id number]) Physical Therapy Assessment Goals Five Impairment Outcome measure Short Term Goal (STG) Modified oswestry score to improve by 5 points or more to show improving pain symptoms and QOL. STG Duration 4 Dog Licenser Goal (LTG) Modified oswestry score to improve by 10 points to show resolution of pain symptoms and QOL. LTG Duration 8 Four Impairment Activity tolerance Short Term Goal (STG) Pt to report being able to walk recreationally for 1/2 mile before onset of symptoms to show improving function. STG Duration 4 Long-Term Goal (LTG) Pt to report being able to walk recreationally for 1 mile before onset of symptoms to show improving function and return to PLOF. LTG Duration 8 Three Impairment Muscular weakness Short Term Goal (STG) Gross LE MMT to improve to 4+/ 5 or better to demonstrate improving strength to improve ability to perform functional mobility, ADLs and IADLs. STG Duration 4 Dog Licenser Goal (LTG) Gross LE MMT to improve to 5/5 without pain to demonstrate improved strength to improve ability to perform functional mobility, ADLs and IADLs, and participate in recreational activities. LTG Duration 8 Two Impairment Lumbar spine AROM deficits Short Term Goal (STG) Pt to perform bilateral lumbar rotation to 35 degress or better to show improving lumbar spine AROM to improve ability to perform functional mobility. STG Duration 4 Long-Term Goal (LTG) Pt to perform bilateral lumbar rotation to 45 degress or better to show improving lumbar spine AROM to improve ability to perform functional mobility. LTG Duration 8 One Impairment Lumbar spine AROM deficits Short Term Goal (STG) Pt to perform left side bending to mid joint line to show improving lumbar spine AROM to improve ability to perform functional mobility. STG Duration 4 Long-Term Goal (LTG) Pt to perform left side bending to fibular head to show improving lumbar spine AROM to improve ability to perform functional mobility. LTG Duration 8 Assessment Summary Assessment Kervin Leblanc has completed 8 visits of skilled PT to address complaints of low back an hip pain. Currently, the pt demonstrates good progress in his lumbar spine mobility, strength and subjective report of symptoms. However, he continues with some limitations in his ability to participate in recreational ideas. Based on this current symptom report and improvement , as well as remaining limitations, PT recommends continuing as per established POC to resolve his remaining limitations and to return to his PLOF. Physical Therapy Plan Frequency and Duration Frequency of Treatment 2x/Week Duration of treatment (weeks) 8 Plan of Care Start Date 06/10/23 Plan of Care End Date 08/12/23 Therapeutic Interventions Therapeutic Interventions Balance Training,Manual Therapy,Neuromuscular Re- education,Patient/Caregiver Education,Self-Care/Home Management,Soft Tissue Mobilization,Taping, Therapeutic Activities, Therapeutic Exercises Modalities Cold Pack/Ice Massage,Electric Stimulation,Hot Packs Next Visit Focus/Plan Next Note Type Treatment Note Next Visit Plan POC: Continue with focus on improving core and LE strength and mobility, by adding standing strengthening exercises.
--- NOTE | 2023-07-22 09:45 | PT.OTN ---
Current Diagnoses Low back pain, unspecified (07/22/23) Physical Therapy Treatment Note PT-OP-A Visit Information Start: 06/10/23 08:29 Freq: Status: Active Protocol: Document 07/22/23 09:07 SP (Rec: 07/22/23 09:47 SP [id number]) Out-Patient Physical Therapy Visit Information Visit Information Visit Type Treatment Note Visit Note PN next tx Visit Start Time 09:07 Visit Stop Time 09:45 Total Visit Minutes 38 Visit Number 10 Number of NET DEVELOPER Visits 1 Evaluation Information Evaluation Date 06/10/23 Precautions Precautions TE-MOAK Osteopenia, HTN (controlled with medication) PT-OP-B Current Condition Start: 06/10/23 08:29 Freq: Status: Active Protocol: Document 07/17/23 09:20 AB (Rec: 07/17/23 10:42 AB [id number]) Current Condition History of Current Condition Onset Date 5 years ago Current Complaints 5-6/10 hip pain at worst, 1/10 at best; 3/10 LBP at worst, 0 -1/10 at best History of Current Condition Pt reports he has hip and low back pain with walking variable distances, sometimes within 2 blocks and sometimes within 1 mile, however he mainly has hip pain. No trouble standing, sitting or laying down for any amount of time. He denies N/T or other red flag symptoms. The pt also denies pain with any specific motions or other activities. Prior Treatments and Tests Xrays and MRI Treatment Goals Patient/Caregiver Goals To be able to be active Prior Functional Status Baseline Function- Recreation/Hobbies Walks recreationally and plays with grandkids Current Functional Impairments (Reported) Functional Limitations- Recreation/ Limited in his ability to walk Hobbies for recreation. PT-OP-C Subjective Start: 06/10/23 08:29 Freq: Status: Active Protocol: Document 07/22/23 09:07 SP (Rec: 07/22/23 09:47 SP [id number]) OP-PT Subjective Patient Comments Patient Comments Pt reports back doing better. Had little pain mid back recently but overall sees improvement. PT-OP-J Posture/Palpation/Skin Start: 06/10/23 08:29 Freq: Status: Active Protocol: Document 07/17/23 09:20 AB (Rec: 07/17/23 10:42 AB [id number]) Posture Evaluation Position Standing Evaluation View Anterior Shoulder Posture (L) Elevated PT-OP-K Range of Motion Start: 06/10/23 08:29 Freq: Status: Active Protocol: Document 07/17/23 09:20 AB (Rec: 07/17/23 10:42 AB [id number]) Lumbar Spine Range of Motion Lumbar Spine Active Degrees Testing Position Standing Extension 30 Rotation Left 50 Rotation Right 45 Comments flex: to toes SB R: fib head, SB L: to mid jt line denies pain with any motion PT-OP-L Special Tests Start: 06/10/23 08:29 Freq: Status: Active Protocol: Document 07/17/23 09:20 AB (Rec: 07/17/23 10:42 AB [id number]) Special Tests Hip Special Tests Scour Test Test Results negative bilaterally Comments Pt denies reproduction of symptoms. PT-OP-M Strength Start: 06/10/23 08:29 Freq: Status: Active Protocol: Document 07/17/23 09:20 AB (Rec: 07/17/23 10:42 AB [id number]) Hip Strength Hip Manual Muscle Testing Right Flexion (L2) 5 Normal Extension (S1) 4 Good Abduction 5 Normal Adduction 4+ Good+ External Rotation 4+ Good+ Internal Rotation 5 Normal Left Flexion (L2) 5 Normal Extension (S1) 4+ Good+ Abduction 4+ Good+ Adduction 4+ Good+ External Rotation 4+ Good+ Internal Rotation 5 Normal Knee Strength Knee Manual Muscle Testing Right Flexion (S2) 5 Normal Extension (L3) 5 Normal Left Flexion (S2) 5 Normal Extension (L3) 5 Normal Ankle/Foot Strength Ankle and Foot Manual Muscle Testing Right Dorsiflexion (L4) 5 Normal Plantarflexion (S1) 5 Normal Left Dorsiflexion (L4) 5 Normal Plantarflexion (S1) 5 Normal PT-OP-Q Treatments Start: 06/10/23 08:29 Freq: Status: Active Protocol: Document 07/22/23 09:07 SP (Rec: 07/22/23 09:47 SP [id number]) Gym Equipment Shuttle Recovery unilateral squat Resistance 37#> 50# (new& new band) Reps/Time x20 each LE bilateral squat Resistance 75 # (2>3 new bands) Reps/Time x20 Sport Cord red Exercise Details fwd, bwd, lateral, step up/ back down 8step Cord/Resistance red Reps/Duration 8 reps each Therapeutic Exercises Supine Exercises 2 Supine Exercise Name LTRs: LEs over tball- add HEP Resistance AROM, #1 TB around thighs ( therapist anchored, home door) Equipment Used orange Tball Reps/Minutes x20 Comments good feedback 1 Supine Exercise Name Bridge + TrA Resistance AROM Equipment Used orange tball Reps/Minutes x20 Comments painfree Standing Exercises Stool hip ER/IR Side bilateral Resistance AROM Equipment Used stool, facing/contact rail Reps/Minutes 2x10 PT-OP-T Assessment and Plan Start: 06/10/23 08:29 Freq: Status: Active Protocol: Document 07/22/23 09:07 SP (Rec: 07/22/23 09:47 SP [id number]) Physical Therapy Assessment Goals Five Impairment Outcome measure Short Term Goal (STG) Modified oswestry score to improve by 5 points or more to show improving pain symptoms and QOL. STG Duration 4 Public Space Attendant Goal (LTG) Modified oswestry score to improve by 10 points to show resolution of pain symptoms and QOL. LTG Duration 8 Four Impairment Activity tolerance Short Term Goal (STG) Pt to report being able to walk recreationally for 1/2 mile before onset of symptoms to show improving function. STG Duration 4 Usp Goal (LTG) Pt to report being able to walk recreationally for 1 mile before onset of symptoms to show improving function and return to PLOF. LTG Duration 8 Three Impairment Muscular weakness Short Term Goal (STG) Gross LE MMT to improve to 4+/ 5 or better to demonstrate improving strength to improve ability to perform functional mobility, ADLs and IADLs. STG Duration 4 Public Space Attendant Goal (LTG) Gross LE MMT to improve to 5/5 without pain to demonstrate improved strength to improve ability to perform functional mobility, ADLs and IADLs, and participate in recreational activities. LTG Duration 8 Two Impairment Lumbar spine AROM deficits Short Term Goal (STG) Pt to perform bilateral lumbar rotation to 35 degress or better to show improving lumbar spine AROM to improve ability to perform functional mobility. STG Duration 4 Usp Goal (LTG) Pt to perform bilateral lumbar rotation to 45 degress or better to show improving lumbar spine AROM to improve ability to perform functional mobility. LTG Duration 8 One Impairment Lumbar spine AROM deficits Short Term Goal (STG) Pt to perform left side bending to mid joint line to show improving lumbar spine AROM to improve ability to perform functional mobility. STG Duration 4 Public Space Attendant Goal (LTG) Pt to perform left side bending to fibular head to show improving lumbar spine AROM to improve ability to perform functional mobility. LTG Duration 8 Assessment Summary Assessment Pt reports good core effort with added tball and theraband to LTRs and bridge today will be incorporating into his HEP , declined HO. Reported B hip lateral resisted step outs but forward/backward and step ups were good and thought helpful for balance stabilizing. Physical Therapy Plan Frequency and Duration Frequency of Treatment 2x/Week Duration of treatment (weeks) 8 Plan of Care Start Date 06/10/23 Plan of Care End Date 08/12/23 Therapeutic Interventions Therapeutic Interventions Balance Training,Manual Therapy,Neuromuscular Re- education,Patient/Caregiver Education,Self-Care/Home Management,Soft Tissue Mobilization,Taping, Therapeutic Activities, Therapeutic Exercises Modalities Cold Pack/Ice Massage,Electric Stimulation,Hot Packs Next Visit Focus/Plan Next Note Type Progress Note Next Visit Plan PN next tx 11th visit. POC: Continue with focus on improving core and LE strength and mobility, by adding standing strengthening exercises.
--- NOTE | 2023-07-24 10:57 | PT.OTN ---
Current Diagnoses Low back pain, unspecified (07/24/23) Physical Therapy Treatment Note PT-OP-A Visit Information Start: 06/10/23 08:29 Freq: Status: Active Protocol: Document 07/24/23 09:26 AB (Rec: 07/24/23 10:57 AB [id number]) Out-Patient Physical Therapy Visit Information Visit Information Visit Type Treatment Note Visit Start Time 09:15 Visit Stop Time 10:00 Total Visit Minutes 45 Visit Number 11 PT-OP-B Current Condition Start: 06/10/23 08:29 Freq: Status: Active Protocol: Document 07/17/23 09:20 AB (Rec: 07/17/23 10:42 AB [id number]) Current Condition History of Current Condition Onset Date 5 years ago Current Complaints 5-6/10 hip pain at worst, 1/10 at best; 3/10 LBP at worst, 0 -1/10 at best History of Current Condition Pt reports he has hip and low back pain with walking variable distances, sometimes within 2 blocks and sometimes within 1 mile, however he mainly has hip pain. No trouble standing, sitting or laying down for any amount of time. He denies N/T or other red flag symptoms. The pt also denies pain with any specific motions or other activities. Prior Treatments and Tests Xrays and MRI Treatment Goals Patient/Caregiver Goals To be able to be active Prior Functional Status Baseline Function- Recreation/Hobbies Walks recreationally and plays with grandkids Current Functional Impairments (Reported) Functional Limitations- Recreation/ Limited in his ability to walk Hobbies for recreation. PT-OP-C Subjective Start: 06/10/23 08:29 Freq: Status: Active Protocol: Document 07/24/23 09:26 AB (Rec: 07/24/23 10:57 AB [id number]) OP-PT Subjective Patient Comments Patient Comments The pt reports continued improvement, but states his symptoms continue to be variable in regards to when they occur. PT-OP-J Posture/Palpation/Skin Start: 06/10/23 08:29 Freq: Status: Active Protocol: Document 07/17/23 09:20 AB (Rec: 07/17/23 10:42 AB [id number]) Posture Evaluation Position Standing Evaluation View Anterior Shoulder Posture (L) Elevated PT-OP-K Range of Motion Start: 08/21/23 08:29 Freq: Status: Active Protocol: Document 07/17/23 09:20 AB (Rec: 07/17/23 10:42 AB [id number]) Lumbar Spine Range of Motion Lumbar Spine Active Degrees Testing Position Standing Extension 30 Rotation Left 50 Rotation Right 45 Comments flex: to toes SB R: fib head, SB L: to mid jt line denies pain with any motion PT-OP-L Special Tests Start: 06/10/23 08:29 Freq: Status: Active Protocol: Document 07/17/23 09:20 AB (Rec: 07/17/23 10:42 AB [id number]) Special Tests Hip Special Tests Scour Test Test Results negative bilaterally Comments Pt denies reproduction of symptoms. PT-OP-M Strength Start: 06/10/23 08:29 Freq: Status: Active Protocol: Document 07/17/23 09:20 AB (Rec: 07/17/23 10:42 AB [id number]) Hip Strength Hip Manual Muscle Testing Right Flexion (L2) 5 Normal Extension (S1) 4 Good Abduction 5 Normal Adduction 4+ Good+ External Rotation 4+ Good+ Internal Rotation 5 Normal Left Flexion (L2) 5 Normal Extension (S1) 4+ Good+ Abduction 4+ Good+ Adduction 4+ Good+ External Rotation 4+ Good+ Internal Rotation 5 Normal Knee Strength Knee Manual Muscle Testing Right Flexion (S2) 5 Normal Extension (L3) 5 Normal Left Flexion (S2) 5 Normal Extension (L3) 5 Normal Ankle/Foot Strength Ankle and Foot Manual Muscle Testing Right Dorsiflexion (L4) 5 Normal Plantarflexion (S1) 5 Normal Left Dorsiflexion (L4) 5 Normal Plantarflexion (S1) 5 Normal PT-OP-Q Treatments Start: 06/10/23 08:29 Freq: Status: Active Protocol: Document 07/24/23 09:26 AB (Rec: 07/24/23 10:57 AB [id number]) Cardio Equipment Recumbent Bicycle Duration (Minutes) 6 Resistance 9 Therapeutic Exercises Supine Exercises 2 Supine Exercise Name LTRs: LEs over tball Resistance AROM, #1 TB around thighs ( therapist anchored, home door) Equipment Used orange Tball Reps/Minutes x10 ea 1 Supine Exercise Name Bridge + TrA Resistance AROM Equipment Used orange tball Reps/Minutes 2x10 Standing Exercises Stool hip ER/IR Side bilateral Resistance AROM Equipment Used stool, facing/contact rail Reps/Minutes 2x10 Monster Walks Standing Exercise Name Fwd Side bilateral Resistance teal TB Reps/Minutes x2 laps RDL Resistance 15# Equipment Used crate + weight in crate Reps/Minutes 2x15 Comments Ext cues for proper hip hinge, soft knee bend 1 Standing Exercise Name Crab walks Side bilateral Resistance level 2 band Reps/Minutes 2 laps Comments 1 lap = 20ft Other Exercises Suitcase carry Side bilateral Resistance 20# Equipment Used DB Reps/Minutes x2 laps ea PT-OP-T Assessment and Plan Start: 06/10/23 08:29 Freq: Status: Active Protocol: Document 07/24/23 09:26 AB (Rec: 07/24/23 10:57 AB [id number]) Physical Therapy Assessment Goals Five Impairment Outcome measure Short Term Goal (STG) Modified oswestry score to improve by 5 points or more to show improving pain symptoms and QOL. STG Duration 4 Webmethods Architect Goal (LTG) Modified oswestry score to improve by 10 points to show resolution of pain symptoms and QOL. LTG Duration 8 Four Impairment Activity tolerance Short Term Goal (STG) Pt to report being able to walk recreationally for 1/2 mile before onset of symptoms to show improving function. STG Duration 4 Intermediate Goal (LTG) Pt to report being able to walk recreationally for 1 mile before onset of symptoms to show improving function and return to PLOF. LTG Duration 8 Three Impairment Muscular weakness Short Term Goal (STG) Gross LE MMT to improve to 4+/ 5 or better to demonstrate improving strength to improve ability to perform functional mobility, ADLs and IADLs. STG Duration 4 Webmethods Architect Goal (LTG) Gross LE MMT to improve to 5/5 without pain to demonstrate improved strength to improve ability to perform functional mobility, ADLs and IADLs, and participate in recreational activities. LTG Duration 8 Two Impairment Lumbar spine AROM deficits Short Term Goal (STG) Pt to perform bilateral lumbar rotation to 35 degress or better to show improving lumbar spine AROM to improve ability to perform functional mobility. STG Duration 4 Webmethods Architect Goal (LTG) Pt to perform bilateral lumbar rotation to 45 degress or better to show improving lumbar spine AROM to improve ability to perform functional mobility. LTG Duration 8 One Impairment Lumbar spine AROM deficits Short Term Goal (STG) Pt to perform left side bending to mid joint line to show improving lumbar spine AROM to improve ability to perform functional mobility. STG Duration 4 Intermediate Goal (LTG) Pt to perform left side bending to fibular head to show improving lumbar spine AROM to improve ability to perform functional mobility. LTG Duration 8 Assessment Summary Assessment Exercise additions from last session were made today, with good tolerance to these exercises. The pt reported increase in symptoms with crab and monster walks, however he reports his symptoms are 4/10 or lower and resolve when resting. PT educated pt on 4/ 10 or less being an acceptable level of symptoms, but that if they increase above this, the exercise should be discontinued. RDLs were also reintroduced in order to improve trunk and posterior chain strength. The pt requires extensive cues to hinge properly at the hip and to engage glutes in order to decrease the load on his lumbar paraspinals, as well as to maintain a soft bend at his knees. The pt requires continued instruction and repetition to perform these with good form.
--- NOTE | 2023-07-31 10:30 | PT.OTN ---
Current Diagnoses Low back pain, unspecified (07/31/23) Physical Therapy Treatment Note PT-OP-A Visit Information Start: 06/10/23 08:29 Freq: Status: Active Protocol: Document 07/31/23 09:18 AB (Rec: 07/31/23 10:30 AB [id number]) Out-Patient Physical Therapy Visit Information Visit Information Visit Type Treatment Note Visit Start Time 09:15 Visit Stop Time 10:00 Total Visit Minutes 45 Visit Number 12 Evaluation Information Evaluation Date 06/10/23 Precautions Precautions [place] Osteopenia, HTN (controlled with medication) PT-OP-B Current Condition Start: 06/10/23 08:29 Freq: Status: Active Protocol: Document 07/24/23 11:37 AB (Rec: 07/24/23 11:46 AB [id number]) Current Condition History of Current Condition Onset Date 5 years ago Current Complaints 5-6/10 hip pain at worst, 1/10 at best; 3/10 LBP at worst, 0 -1/10 at best History of Current Condition Pt reports he has hip and low back pain with walking variable distances, sometimes within 2 blocks and sometimes within 1 mile, however he mainly has hip pain. No trouble standing, sitting or laying down for any amount of time. He denies N/T or other red flag symptoms. The pt also denies pain with any specific motions or other activities. Prior Treatments and Tests Xrays and MRI Prior Functional Status Baseline Function- Recreation/Hobbies Walks recreationally and plays with grandkids PT-OP-C Subjective Start: 06/10/23 08:29 Freq: Status: Active Protocol: Document 07/31/23 09:18 AB (Rec: 07/31/23 10:30 AB [id number]) OP-PT Subjective Patient Comments Patient Comments The pt reports he was playing with his grandson and was running and walking alot. He had no pain with/after running , but had pain with walking 4/ 10. PT-OP-J Posture/Palpation/Skin Start: 06/10/23 08:29 Freq: Status: Active Protocol: Document 07/24/23 11:37 AB (Rec: 07/24/23 11:46 AB [id number]) Posture Evaluation Position Standing Evaluation View Anterior Shoulder Posture (L) Elevated PT-OP-K Range of Motion Start: 08/21/23 08:29 Freq: Status: Active Protocol: Document 07/24/23 11:37 AB (Rec: 07/24/23 11:46 AB [id number]) Lumbar Spine Range of Motion Lumbar Spine Active Degrees Testing Position Standing Extension 30 Rotation Left 50 Rotation Right 45 Comments flex: to toes SB R: fib head, SB L: to mid jt line denies pain with any motion PT-OP-L Special Tests Start: 06/10/23 08:29 Freq: Status: Active Protocol: Document 07/24/23 11:37 AB (Rec: 07/24/23 11:46 AB [id number]) Special Tests Hip Special Tests Scour Test Test Results negative bilaterally Comments Pt denies reproduction of symptoms. PT-OP-M Strength Start: 06/10/23 08:29 Freq: Status: Active Protocol: Document 07/24/23 11:37 AB (Rec: 07/24/23 11:46 AB [id number]) Hip Strength Hip Manual Muscle Testing Right Flexion (L2) 5 Normal Extension (S1) 4 Good Abduction 5 Normal Adduction 4+ Good+ External Rotation 4+ Good+ Internal Rotation 5 Normal Left Flexion (L2) 5 Normal Extension (S1) 4+ Good+ Abduction 4+ Good+ Adduction 4+ Good+ External Rotation 4+ Good+ Internal Rotation 5 Normal Knee Strength Knee Manual Muscle Testing Right Flexion (S2) 5 Normal Extension (L3) 5 Normal Left Flexion (S2) 5 Normal Extension (L3) 5 Normal PT-OP-Q Treatments Start: 06/10/23 08:29 Freq: Status: Active Protocol: Document 07/31/23 09:18 AB (Rec: 07/31/23 10:30 AB [id number]) Cardio Equipment Recumbent Elliptical (BiodSimpleDeal) Duration (Minutes) 5 Therapeutic Exercises Standing Exercises Split stance trunk rotations Resistance 5# DB Reps/Minutes 2x15 ea Stool hip ER/IR Side bilateral Resistance AROM Reps/Minutes 2x10 RDL Resistance 15# Equipment Used crate + weight in crate Reps/Minutes 2x15 Comments cues for proper hip hinge, soft knee; wall used for tactile cue Step Ups Standing Exercise Name lateral step downs Side bilateral Equipment Used 4 step Reps/Minutes 2x15 ea Comments cues to increase hip hinge Side crunches Standing Exercise Name lumbar lateral flexion stretch Side bilateral Equipment Used wooden bar Reps/Minutes [id number] hold Comments side bending towards bar 1 Standing Exercise Name Crab walks Side bilateral Resistance [place] green TB Reps/Minutes 2 laps Comments 1 lap = 20ft Other Exercises 1/2 kneel TB chops Side bilateral Resistance orange TB, [place] green TB Reps/Minutes 1x15 ea, 1x15 ea Comments cues for neutral pelvis PT-OP-T Assessment and Plan Start: 06/10/23 08:29 Freq: Status: Active Protocol: Document 07/31/23 09:18 AB (Rec: 07/31/23 10:30 AB [id number]) Physical Therapy Assessment Goals Five Impairment Outcome measure Short Term Goal (STG) Modified oswestry score to improve by 5 points or more to show improving pain symptoms and QOL. STG Duration 4 Associate Quality Engineer Goal (LTG) Modified oswestry score to improve by 10 points to show resolution of pain symptoms and QOL. LTG Duration 8 Four Impairment Activity tolerance Short Term Goal (STG) Pt to report being able to walk recreationally for 1/2 mile before onset of symptoms to show improving function. STG Duration 4 Senior Living Goal (LTG) Pt to report being able to walk recreationally for 1 mile before onset of symptoms to show improving function and return to PLOF. LTG Duration 8 Three Impairment Muscular weakness Short Term Goal (STG) Gross LE MMT to improve to 4+/ 5 or better to demonstrate improving strength to improve ability to perform functional mobility, ADLs and IADLs. STG Duration 4 Senior Living Goal (LTG) Gross LE MMT to improve to 5/5 without pain to demonstrate improved strength to improve ability to perform functional mobility, ADLs and IADLs, and participate in recreational activities. LTG Duration 8 Two Impairment Lumbar spine AROM deficits Short Term Goal (STG) Pt to perform bilateral lumbar rotation to 35 degrees or better to show improving lumbar spine AROM to improve ability to perform functional mobility. STG Duration 4 Associate Quality Engineer Goal (LTG) Pt to perform bilateral lumbar rotation to 45 degrees or better to show improving lumbar spine AROM to improve ability to perform functional mobility. LTG Duration 8 One Impairment Lumbar spine AROM deficits Short Term Goal (STG) Pt to perform left side bending to mid joint line to show improving lumbar spine AROM to improve ability to perform functional mobility. STG Duration 4 Associate Quality Engineer Goal (LTG) Pt to perform left side bending to fibular head to show improving lumbar spine AROM to improve ability to perform functional mobility. LTG Duration 8 Assessment Summary Assessment The pt was progressed today by adding core and LE strengthening exercises, including 1/2 kneeling TB chops, split stance trunk rotations, and lateral step downs. RDLs were performed again, though this time a wall was used to provide tactile feedback for the pt to hip hinge first as opposed to squatting down to picking tech the weight, and was then cued to drive hips forward to activate the posterior chain. Improved form compared to last visit was noted. For second set, the crate was set on 4 step to further bias posterior chain. The pt requires constant cues to position pelvis in neutral position, especially with 1/2 kneeling chops as increased trunk flexion/anterior pelvic tilt. The pt reported no significant increase in symptoms throughout session, but crab walks continue to cause the most muscular fatigue. He continues to benefit from skilled PT at this time.
--- NOTE | 2023-08-05 09:45 | PT.OTN ---
Current Diagnoses Low back pain, unspecified (08/05/23) Physical Therapy Treatment Note PT-OP-A Visit Information Start: 06/10/23 08:29 Freq: Status: Active Protocol: Document 08/05/23 09:07 SP (Rec: 08/05/23 09:49 SP [id number]) Out-Patient Physical Therapy Visit Information Visit Information Visit Type Treatment Note Visit Start Time 09:07 Visit Stop Time 09:45 Total Visit Minutes 38 Visit Number 14 Number of INVAS TECH Visits 1 Evaluation Information Evaluation Date 06/10/23 Precautions Precautions [place] Osteopenia, HTN (controlled with medication) PT-OP-B Current Condition Start: 06/10/23 08:29 Freq: Status: Active Protocol: Document 07/24/23 11:37 AB (Rec: 07/24/23 11:46 AB [id number]) Current Condition History of Current Condition Onset Date 5 years ago Current Complaints 5-6/10 hip pain at worst, 1/10 at best; 3/10 LBP at worst, 0 -1/10 at best History of Current Condition Pt reports he has hip and low back pain with walking variable distances, sometimes within 2 blocks and sometimes within 1 mile, however he mainly has hip pain. No trouble standing, sitting or laying down for any amount of time. He denies N/T or other red flag symptoms. The pt also denies pain with any specific motions or other activities. Prior Treatments and Tests Xrays and MRI Prior Functional Status Baseline Function- Recreation/Hobbies Walks recreationally and plays with grandkids PT-OP-C Subjective Start: 06/10/23 08:29 Freq: Status: Active Protocol: Document 08/05/23 09:07 SP (Rec: 08/05/23 09:49 SP [id number]) OP-PT Subjective Patient Comments Patient Comments Pt reported PT-OP-J Posture/Palpation/Skin Start: 06/10/23 08:29 Freq: Status: Active Protocol: Document 07/24/23 11:37 AB (Rec: 07/24/23 11:46 AB [id number]) Posture Evaluation Position Standing Evaluation View Anterior Shoulder Posture (L) Elevated PT-OP-K Range of Motion Start: 06/10/23 08:29 Freq: Status: Active Protocol: Document 07/24/23 11:37 AB (Rec: 07/24/23 11:46 AB [id number]) Lumbar Spine Range of Motion Lumbar Spine Active Degrees Testing Position Standing Extension 30 Rotation Left 50 Rotation Right 45 Comments flex: to toes SB R: fib head, SB L: to mid jt line denies pain with any motion PT-OP-L Special Tests Start: 06/10/23 08:29 Freq: Status: Active Protocol: Document 07/24/23 11:37 AB (Rec: 07/24/23 11:46 AB [id number]) Special Tests Hip Special Tests Scour Test Test Results negative bilaterally Comments Pt denies reproduction of symptoms. PT-OP-M Strength Start: 06/10/23 08:29 Freq: Status: Active Protocol: Document 07/24/23 11:37 AB (Rec: 07/24/23 11:46 AB [id number]) Hip Strength Hip Manual Muscle Testing Right Flexion (L2) 5 Normal Extension (S1) 4 Good Abduction 5 Normal Adduction 4+ Good+ External Rotation 4+ Good+ Internal Rotation 5 Normal Left Flexion (L2) 5 Normal Extension (S1) 4+ Good+ Abduction 4+ Good+ Adduction 4+ Good+ External Rotation 4+ Good+ Internal Rotation 5 Normal Knee Strength Knee Manual Muscle Testing Right Flexion (S2) 5 Normal Extension (L3) 5 Normal Left Flexion (S2) 5 Normal Extension (L3) 5 Normal PT-OP-Q Treatments Start: 06/10/23 08:29 Freq: Status: Active Protocol: Document 08/05/23 09:07 SP (Rec: 08/05/23 09:49 SP [id number]) Cardio Equipment Recumbent Bicycle Duration (Minutes) 7 Resistance 9 Seat Position 3 Therapeutic Exercises Standing Exercises Stool hip ER/IR Side bilateral Resistance AROM, 1# TB (therapist anchored) Reps/Minutes 10 reps each resistance BLE Comments cued slow eccentric pacing- feels good resistance RDL Resistance 15# Equipment Used crate + weight in crate Reps/Minutes 2x15 Comments cued back alignment, hip hinge /squat from floor, up/downk stairs mechanicw Lunges Standing Exercise Name Forward walk lunges Side bilateral Equipment Used no UE support Reps/Minutes 8 ft x1 lap Comments cued increase VIOLETTE, knees behing/with toes, improved stabililty Side crunches Standing Exercise Name lumbar lateral flexion stretch Side bilateral Equipment Used front mirror Reps/Minutes 10x, then 5 reps x3sec hold Comments cued no shoulder shrug- improved- good side ab work and stretch 2 Standing Exercise Name Paloff press + rotation Side bilateral Resistance orange +blue TB Reps/Minutes 2x15 Comments cued NS/PPT, no LB recruitment Other Exercises 1/2 kneel TB chops Side bilateral Resistance orange + [place] green TB Equipment Used back knee on blue foam Reps/Minutes 1x15 ea, 1x15 ea Comments cues for neutral pelvis, challenge stability-CG [place] PT-OP-T Assessment and Plan Start: 06/10/23 08:29 Freq: Status: Active Protocol: Document 08/05/23 09:07 SP (Rec: 08/05/23 09:49 SP [id number]) Physical Therapy Assessment Goals Five Impairment Outcome measure Short Term Goal (STG) Modified oswestry score to improve by 5 points or more to show improving pain symptoms and QOL. STG Duration 4 Residential Goal (LTG) Modified oswestry score to improve by 10 points to show resolution of pain symptoms and QOL. LTG Duration 8 Four Impairment Activity tolerance Short Term Goal (STG) Pt to report being able to walk recreationally for 1/2 mile before onset of symptoms to show improving function. STG Duration 4 Residential Goal (LTG) Pt to report being able to walk recreationally for 1 mile before onset of symptoms to show improving function and return to PLOF. LTG Duration 8 Three Impairment Muscular weakness Short Term Goal (STG) Gross LE MMT to improve to 4+/ 5 or better to demonstrate improving strength to improve ability to perform functional mobility, ADLs and IADLs. STG Duration 4 Residential Goal (LTG) Gross LE MMT to improve to 5/5 without pain to demonstrate improved strength to improve ability to perform functional mobility, ADLs and IADLs, and participate in recreational activities. LTG Duration 8 Two Impairment Lumbar spine AROM deficits Short Term Goal (STG) Pt to perform bilateral lumbar rotation to 35 degress or better to show improving lumbar spine AROM to improve ability to perform functional mobility. STG Duration 4 Residential Goal (LTG) Pt to perform bilateral lumbar rotation to 45 degress or better to show improving lumbar spine AROM to improve ability to perform functional mobility. LTG Duration 8 One Impairment Lumbar spine AROM deficits Short Term Goal (STG) Pt to perform left side bending to mid joint line to show improving lumbar spine AROM to improve ability to perform functional mobility. STG Duration 4 Residential Goal (LTG) Pt to perform left side bending to fibular head to show improving lumbar spine AROM to improve ability to perform functional mobility. LTG Duration 8 Assessment Summary Assessment Pt responded well to continued progress in ther ex today. Used mirror for self corrections in form. Able to increase wt during body mechanics squat picker box operator items and carryover during stair mgt , assimulation mechanics for carrying grandson up stairs ( falls asleep in car and hard to wake up). No back pain reports. Physical Therapy Plan Frequency and Duration Frequency of Treatment 2x/Week Duration of treatment (weeks) 8 Plan of Care Start Date 06/10/23 Plan of Care End Date 08/12/23 Therapeutic Interventions Therapeutic Interventions Balance Training,Manual Therapy,Neuromuscular Re- education,Patient/Caregiver Education,Self-Care/Home Management,Soft Tissue Mobilization,Taping, Therapeutic Activities, Therapeutic Exercises Modalities Cold Pack/Ice Massage,Electric Stimulation,Hot Packs Next Visit Focus/Plan Next Note Type Treatment Note Next Visit Plan POC: Continue with focus on improving core and LE strength and mobility, by adding standing strengthening exercises.
--- NOTE | 2023-08-07 09:45 | PT.OTN ---
Current Diagnoses Low back pain, unspecified (08/07/23) Physical Therapy Treatment Note PT-OP-A Visit Information Start: 06/10/23 08:29 Freq: Status: Active Protocol: Document 08/07/23 09:03 SP (Rec: 08/07/23 09:50 SP [id number]) Out-Patient Physical Therapy Visit Information Visit Information Visit Type Treatment Note Visit Start Time 09:03 Visit Stop Time 09:45 Total Visit Minutes 42 Visit Number 15 Number of SENIOR EXECUTIVE COMPENSATION ANALYST Visits 2 Evaluation Information Evaluation Date 06/10/23 Precautions Precautions [id number] Osteopenia, HTN (controlled with medication) PT-OP-B Current Condition Start: 06/10/23 08:29 Freq: Status: Active Protocol: Document 07/24/23 11:37 AB (Rec: 07/24/23 11:46 AB [id number]) Current Condition History of Current Condition Onset Date 5 years ago Current Complaints 5-6/10 hip pain at worst, 1/10 at best; 3/10 LBP at worst, 0 -1/10 at best History of Current Condition Pt reports he has hip and low back pain with walking variable distances, sometimes within 2 blocks and sometimes within 1 mile, however he mainly has hip pain. No trouble standing, sitting or laying down for any amount of time. He denies N/T or other red flag symptoms. The pt also denies pain with any specific motions or other activities. Prior Treatments and Tests Xrays and MRI Prior Functional Status Baseline Function- Recreation/Hobbies Walks recreationally and plays with grandkids PT-OP-C Subjective Start: 06/10/23 08:29 Freq: Status: Active Protocol: Document 08/07/23 09:03 SP (Rec: 08/07/23 09:50 SP [id number]) OP-PT Subjective Patient Comments Patient Comments Pt stated didn't do much outdoors since last tx due to rain. Compliant with HEP every morning. Using #5 TB for upper body exercises. PT-OP-J Posture/Palpation/Skin Start: 06/10/23 08:29 Freq: Status: Active Protocol: Document 07/24/23 11:37 AB (Rec: 07/24/23 11:46 AB [id number]) Posture Evaluation Position Standing Evaluation View Anterior Shoulder Posture (L) Elevated PT-OP-K Range of Motion Start: 08/21/23 08:29 Freq: Status: Active Protocol: Document 07/24/23 11:37 AB (Rec: 07/24/23 11:46 AB [id number]) Lumbar Spine Range of Motion Lumbar Spine Active Degrees Testing Position Standing Extension 30 Rotation Left 50 Rotation Right 45 Comments flex: to toes SB R: fib head, SB L: to mid jt line denies pain with any motion PT-OP-L Special Tests Start: 06/10/23 08:29 Freq: Status: Active Protocol: Document 07/24/23 11:37 AB (Rec: 07/24/23 11:46 AB [id number]) Special Tests Hip Special Tests Scour Test Test Results negative bilaterally Comments Pt denies reproduction of symptoms. PT-OP-M Strength Start: 06/10/23 08:29 Freq: Status: Active Protocol: Document 07/24/23 11:37 AB (Rec: 07/24/23 11:46 AB [id number]) Hip Strength Hip Manual Muscle Testing Right Flexion (L2) 5 Normal Extension (S1) 4 Good Abduction 5 Normal Adduction 4+ Good+ External Rotation 4+ Good+ Internal Rotation 5 Normal Left Flexion (L2) 5 Normal Extension (S1) 4+ Good+ Abduction 4+ Good+ Adduction 4+ Good+ External Rotation 4+ Good+ Internal Rotation 5 Normal Knee Strength Knee Manual Muscle Testing Right Flexion (S2) 5 Normal Extension (L3) 5 Normal Left Flexion (S2) 5 Normal Extension (L3) 5 Normal PT-OP-Q Treatments Start: 06/10/23 08:29 Freq: Status: Active Protocol: Document 08/07/23 09:03 SP (Rec: 08/07/23 09:50 SP [id number]) Cardio Equipment Recumbent Bicycle Duration (Minutes) 6 Resistance 9 Seat Position 3 Other 1.74 miles Gym Equipment Shuttle Recovery unilateral squat Resistance 50# (new& new band) Reps/Time x20 each LE bilateral squat Details feels like good effort Resistance 75 # (3 new bands) Reps/Time x30 Therapeutic Exercises Sitting Exercises HS stretch Side bilateral Reps/Minutes 20 SH each LE Comments cued straight back, good feedback stretch lumbar flexion stretch Sitting Exercise Name 3 way lumbar flexion stretch Side bilateral Reps/Minutes 20 SH each Comments good stretch Standing Exercises Monster Walks Standing Exercise Name Fwd/bwd Side bilateral Resistance green TB Reps/Minutes x2 laps (20 ft lengthe0 Comments cued increse WBOS RDL Resistance 10#>15# DB Equipment Used hip hinge squat to floor Reps/Minutes 2x15 Comments good back alignment and hip/ knee flexion needed- pnfree Lunges Standing Exercise Name Forward lunge w/ trunk rotation OH reach Side bilateral Resistance *challenge but painfree- told in PT only for now Equipment Used near rail for balance support Reps/Minutes 10 ft x3 lengths Comments cued increase VIOLETTE, slow and rotate if stable Step Ups Standing Exercise Name lateral step downs Side bilateral Equipment Used 6 bottom stair/step, light contact rail PRN L/Min A rail R Reps/Minutes 2x15 ea Comments cued knee alignment, better hip hinge 2 Standing Exercise Name Paloff press 20# cable+ rotation w/ press 15# cable Side bilateral Resistance cable #20 Reps/Minutes x15 each side Comments good NS/trunk alignment 1 Standing Exercise Name Crab walks- lateral & Fwd & Bwd Side bilateral Resistance green TB Reps/Minutes 2 laps each (20 ft length) Comments cued maintain WBOS- good hip abd fac PT-OP-T Assessment and Plan Start: 06/10/23 08:29 Freq: Status: Active Protocol: Document 08/07/23 09:03 SP (Rec: 08/07/23 09:50 SP [id number]) Physical Therapy Assessment Goals Five Impairment Outcome measure Short Term Goal (STG) Modified oswestry score to improve by 5 points or more to show improving pain symptoms and QOL. STG Duration 4 Usp Goal (LTG) Modified oswestry score to improve by 10 points to show resolution of pain symptoms and QOL. LTG Duration 8 Four Impairment Activity tolerance Short Term Goal (STG) Pt to report being able to walk recreationally for 1/2 mile before onset of symptoms to show improving function. STG Duration 4 Reimbursement Liaison Goal (LTG) Pt to report being able to walk recreationally for 1 mile before onset of symptoms to show improving function and return to PLOF. LTG Duration 8 Three Impairment Muscular weakness Short Term Goal (STG) Gross LE MMT to improve to 4+/ 5 or better to demonstrate improving strength to improve ability to perform functional mobility, ADLs and IADLs. STG Duration 4 Reimbursement Liaison Goal (LTG) Gross LE MMT to improve to 5/5 without pain to demonstrate improved strength to improve ability to perform functional mobility, ADLs and IADLs, and participate in recreational activities. LTG Duration 8 Two Impairment Lumbar spine AROM deficits Short Term Goal (STG) Pt to perform bilateral lumbar rotation to 35 degress or better to show improving lumbar spine AROM to improve ability to perform functional mobility. STG Duration 4 Reimbursement Liaison Goal (LTG) Pt to perform bilateral lumbar rotation to 45 degress or better to show improving lumbar spine AROM to improve ability to perform functional mobility. LTG Duration 8 One Impairment Lumbar spine AROM deficits Short Term Goal (STG) Pt to perform left side bending to mid joint line to show improving lumbar spine AROM to improve ability to perform functional mobility. STG Duration 4 Usp Goal (LTG) Pt to perform left side bending to fibular head to show improving lumbar spine AROM to improve ability to perform functional mobility. LTG Duration 8 Assessment Summary Assessment Pt worked hard, good self back alignment corrections. Challenged with trial lunge and rotational OH reach over front LE, cued slow pacing, increase VIOLETTE into lunge then reach if stable, required CG- 5%A. Good feedback stretch end tx. Pt reports back feels good end tx. Physical Therapy Plan Frequency and Duration Frequency of Treatment 2x/Week Duration of treatment (weeks) 8 Plan of Care Start Date 06/10/23 Plan of Care End Date 08/12/23 Therapeutic Interventions Therapeutic Interventions Balance Training,Manual Therapy,Neuromuscular Re- education,Patient/Caregiver Education,Self-Care/Home Management,Soft Tissue Mobilization,Taping, Therapeutic Activities, Therapeutic Exercises Modalities Cold Pack/Ice Massage,Electric Stimulation,Hot Packs Next Visit Focus/Plan Next Note Type Treatment Note Next Visit Plan POC: Continue with focus on improving core and LE strength and mobility, by adding standing strengthening exercises.
--- NOTE | 2023-08-12 10:09 | PT.OTN ---
Current Diagnoses Low back pain, unspecified (08/12/23) Physical Therapy Treatment Note PT-OP-A Visit Information Start: 06/10/23 08:29 Freq: Status: Active Protocol: Document 08/12/23 09:20 AB (Rec: 08/12/23 10:08 AB [id number]) Out-Patient Physical Therapy Visit Information Visit Information Visit Type Treatment Note Visit Start Time 09:15 Visit Stop Time 10:00 Total Visit Minutes 45 Visit Number 16 Evaluation Information Evaluation Date 06/10/23 Precautions Precautions [place] Osteopenia, HTN (controlled with medication) PT-OP-B Current Condition Start: 06/10/23 08:29 Freq: Status: Active Protocol: Document 08/12/23 09:20 AB (Rec: 08/12/23 10:08 AB [id number]) Current Condition History of Current Condition Onset Date 5 years ago Current Complaints 5-6/10 hip pain at worst, 1/10 at best; 3/10 LBP at worst, 0 -1/10 at best History of Current Condition Pt reports he has hip and low back pain with walking variable distances, sometimes within 2 blocks and sometimes within 1 mile, however he mainly has hip pain. No trouble standing, sitting or laying down for any amount of time. He denies N/T or other red flag symptoms. The pt also denies pain with any specific motions or other activities. Prior Treatments and Tests Xrays and MRI Treatment Goals Patient/Caregiver Goals To be able to be active PT-OP-C Subjective Start: 06/10/23 08:29 Freq: Status: Active Protocol: Document 08/12/23 09:20 AB (Rec: 08/12/23 10:08 AB [id number]) OP-PT Subjective Patient Comments Patient Comments Pt reports he was able to walk 1 mile without any symptoms whatsoever. He feels like he is ready to discharge to independent [facility]. Patient Questionnaires Oswestry Low Back Index Oswestry Score 2/50 Oswestry Impairment 1 to 19% Impaired (Score 1-19) PT-OP-J Posture/Palpation/Skin Start: 06/10/23 08:29 Freq: Status: Active Protocol: Document 08/12/23 09:20 AB (Rec: 08/12/23 10:08 AB [id number]) Posture Evaluation Position Standing Evaluation View Anterior Shoulder Posture (L) Elevated PT-OP-K Range of Motion Start: 06/10/23 08:29 Freq: Status: Active Protocol: Document 08/12/23 09:20 AB (Rec: 08/12/23 10:08 AB [id number]) Lumbar Spine Range of Motion Lumbar Spine Active Degrees Testing Position Standing Extension 30 Rotation Left 50 Rotation Right 45 Comments flex: to toes SB R: fib head, SB L: to mid jt line denies pain with any motion PT-OP-L Special Tests Start: 06/10/23 08:29 Freq: Status: Active Protocol: Document 08/12/23 09:20 AB (Rec: 08/12/23 10:08 AB [id number]) Special Tests Hip Special Tests Scour Test Test Results negative bilaterally Comments Pt denies reproduction of symptoms. PT-OP-M Strength Start: 06/10/23 08:29 Freq: Status: Active Protocol: Document 08/12/23 09:20 AB (Rec: 08/12/23 10:08 AB [id number]) Hip Strength Hip Manual Muscle Testing Right Flexion (L2) 5 Normal Extension (S1) 4 Good Abduction 5 Normal Adduction 4+ Good+ External Rotation 4+ Good+ Internal Rotation 5 Normal Left Flexion (L2) 5 Normal Extension (S1) 4+ Good+ Abduction 4+ Good+ Adduction 4+ Good+ External Rotation 4+ Good+ Internal Rotation 5 Normal Knee Strength Knee Manual Muscle Testing Right Flexion (S2) 5 Normal Extension (L3) 5 Normal Left Flexion (S2) 5 Normal Extension (L3) 5 Normal Ankle/Foot Strength Ankle and Foot Manual Muscle Testing Right Dorsiflexion (L4) 5 Normal Plantarflexion (S1) 5 Normal Left Dorsiflexion (L4) 5 Normal Plantarflexion (S1) 5 Normal PT-OP-Q Treatments Start: 06/10/23 08:29 Freq: Status: Active Protocol: Document 08/12/23 09:20 AB (Rec: 08/12/23 10:08 AB [id number]) Cardio Equipment Recumbent Bicycle Duration (Minutes) 6 Resistance 9 Seat Position 3 Gym Equipment Shuttle Recovery unilateral squat Resistance 50# (new& new band) Reps/Time 2x15 ea bilateral squat Details feels like good effort Resistance 75 # (3 new bands) Reps/Time 2x15 Therapeutic Exercises Standing Exercises Stool hip ER/IR Side bilateral Reps/Minutes 2x10 Monster Walks Standing Exercise Name Fwd/bwd Side bilateral Resistance green TB Reps/Minutes x2 laps (20 ft lengthe0 Lunges Standing Exercise Name Forward lunge w/ trunk rotation OH reach Side bilateral Resistance *challenge but painfree- told in PT only for now Equipment Used near rail for balance support Reps/Minutes 10 ft x3 lengths Comments cued increase VIOLETTE, slow and rotate if stable Side crunches Standing Exercise Name lumbar lateral flexion stretch Side bilateral Reps/Minutes 2x10, 3 sec hold ea Comments cued no shoulder shrug- improved- good side ab work and stretch 2 Standing Exercise Name Paloff press + rotation Side bilateral Resistance cable #20 Reps/Minutes 2x15 each side 1 Standing Exercise Name Crab walks- lateral Side bilateral Resistance green TB Reps/Minutes 2 laps each (20 ft length) Self-Care/Home Management Treatment Education Patient Education Home Exercise Program PT-OP-T Assessment and Plan Start: 06/10/23 08:29 Freq: Status: Active Protocol: Document 08/12/23 09:20 AB (Rec: 08/12/23 10:08 AB [id number]) Physical Therapy Assessment Goals Five Impairment Outcome measure Short Term Goal (STG) Modified oswestry score to improve by 5 points or more to show improving pain symptoms and QOL. STG Duration 4 Group Home Goal (LTG) Modified oswestry score to improve by 10 points to show resolution of pain symptoms and QOL. LTG Duration 8 Four Impairment Activity tolerance Short Term Goal (STG) Pt to report being able to walk recreationally for 1/2 mile before onset of symptoms to show improving function. STG Duration 4 Group Home Goal (LTG) Pt to report being able to walk recreationally for 1 mile before onset of symptoms to show improving function and return to PLOF. LTG Duration 8 Three Impairment Muscular weakness Short Term Goal (STG) Gross LE MMT to improve to 4+/ 5 or better to demonstrate improving strength to improve ability to perform functional mobility, ADLs and IADLs. STG Duration 4 Automated Manufacturing Instructor Goal (LTG) Gross LE MMT to improve to 5/5 without pain to demonstrate improved strength to improve ability to perform functional mobility, ADLs and IADLs, and participate in recreational activities. LTG Duration 8 Two Impairment Lumbar spine AROM deficits Short Term Goal (STG) Pt to perform bilateral lumbar rotation to 35 degress or better to show improving lumbar spine AROM to improve ability to perform functional mobility. STG Duration 4 Automated Manufacturing Instructor Goal (LTG) Pt to perform bilateral lumbar rotation to 45 degress or better to show improving lumbar spine AROM to improve ability to perform functional mobility. LTG Duration 8 One Impairment Lumbar spine AROM deficits Short Term Goal (STG) Pt to perform left side bending to mid joint line to show improving lumbar spine AROM to improve ability to perform functional mobility. STG Duration 4 Group Home Goal (LTG) Pt to perform left side bending to fibular head to show improving lumbar spine AROM to improve ability to perform functional mobility. LTG Duration 8 Progress Towards Goals Progress Towards Goals Goals Met Assessment Summary Assessment Kervin Leblanc has completed his POC and has met goals established on his initial evaluation. The pt reports significant improvement in his symptoms and feeling like he is able to participate in the activities he enjoys, including recreational walking and being able to play with his grandson. He also reports feeling confident continuing with independent [facility]. The pt demonstrates improvements in strength and lumbar spine AROM compared to initial evaluation. Based on his improvements and achievement of goals, the pt is being discharged to independent [facility]. The pt was educated on returning PT or to MD if symptoms return. Physical Therapy Plan Frequency and Duration Frequency of Treatment 2x/Week Duration of treatment (weeks) 8 Plan of Care Start Date 06/10/23 Plan of Care End Date 08/12/23 Therapeutic Interventions Therapeutic Interventions Balance Training,Manual Therapy,Neuromuscular Re- education,Patient/Caregiver Education,Self-Care/Home Management,Soft Tissue Mobilization,Taping, Therapeutic Activities, Therapeutic Exercises Modalities Cold Pack/Ice Massage,Electric Stimulation,Hot Packs Discharge Physical Therapy Discharge Reasons Goals Met Next Visit Focus/Plan Next Note Type Discharge Summary Next Visit Plan Pt has been d/c from PT due to meeting goals.
== END 2023-08-14 10:42 | disposition home or self-care (01) ==
LOC: PHYS 09:15
PROVIDERS: Family Provider Student in an Organized Health Care Education/Training Program; PCP Family Medicine; Referring Provider Family Medicine; Visit Provider Family Medicine
DX: M54.50 Low back pain, unspecified (principal)
CPT/HCPCS: 97110; 97112; 97140; 97161; 97535

== ENCOUNTER 2023-10-01 16:53 | Emergency (ER) | payer MEDICARE, OTHER, SELFPAY ==
[2023-10-01 16:57] VITALS: BP 147/67; PULSE 69; RESP 16; TEMP 36.6; O2SAT 96; BMI 23.5
--- NOTE | 2023-10-01 17:09 | DI.CT.S_ITS ---
PROCEDURE: CT CHEST WO CON INDICATIONS: fall TECHNIQUE: Noncontrast 5 mm thick sections acquired from the pulmonary apices to the posterior costophrenic angles. 1 mm lung window, 5 mm thick coronal and sagittal and 7 mm axial MIP reformats were then acquired. For radiation dose reduction, the following was used: automated exposure control, adjustment of mA and/or kV according to patient size. COMPARISON: None. FINDINGS: Image quality: Diagnostic. Lungs and pleura: Multiple lung nodules are present. Reference nodules are listed in the following: -4 mm; left upper lobe; series 3, image 95. -6 mm; right middle lobe; series 3, image 200. There are scars and atelectasis in right middle lobe and both lower lobes. No pleural effusions or pneumothorax. Central and peripheral airways are patent and normal in caliber. Mediastinum: Heart size is normal. Mild coronary artery calcification. No pericardial effusion. No mediastinal adenopathy by size criteria. Thoracic aorta and central pulmonary arteries are normal in size. Esophagus is normal in caliber. No hiatal hernia. Bones and chest wall: No suspicious bony lesions. No vertebral body compression fractures. No axillary or supraclavicular adenopathy by size criteria. No thyroid nodules which require sonographic follow up, per consensus guidelines. Upper Abdomen: There is a 4 cm simple cyst in the superior pole of the right kidney. Visualized upper abdominal solid organs and bowel loops otherwise appear normal in the absence of contrast. IMPRESSION: 1. There is a minimally displaced fracture involving the posterior aspect of the left 12th rib. 2. No hemothorax or pneumothorax. 3. Multiple pulmonary nodules. Recommend follow-up chest CT in 3 months. 4. Pulmonary scars and atelectasis in right middle lobe and both lower lobes. 5. Please see the body of the report for other nonurgent incidental findings. Fleischner Society criteria for SOLID lung nodule followup. Nodule size (mm)Low-risk patientHigh-risk patient?4No follow-up neededFollow-up at 12 mo; if no change, no further follow-up>0-0Otuolb-nu CT at 12 mo; if no change, no further follow-up needed.Initial follow-up CT at 6-12 mo, then 18-24 mo if no change. >6-8Initial follow-up CT at 6-12 mo, then 18-24 mo if no change. Initial follow-up CT at 3-6 mo, then 9-12 mo and 24 mo if no change. >8Follow-up CT at 3, 9, 24 mo. Or PET and/or biopsy.Same as for low-risk pts. Fleischner Society criteria for SUB-SOLID lung nodule followup. Solitary pure ground-glass nodules5 mm or lessNo followup needed. >5 mm3 mo follow-up CT to confirm persistence. Then annual CT for 3 years. Part-solid nodules3 mo follow-up CT to confirm persistence. If persistent with solid component <5 mm, annual CT for at least 3 years. If solid component is 5 mm or more, biopsy or surgical resection. Consider PET-CT for lesions > 10 mm. Multiple sub-solid nodulesPure ground glass nodules [address] at 2 and 4 years. Pure ground glass nodules >5 mm without dominant lesion. [address] to confirm persistence, then annual followup CT for at least 3 years. Dominant nodule(s) with part-solid or solid component. [address] to confirm persistence. If persistent, consider biopsy or surgical resection, arturo if lesions have >5 mm solid component. Dictated by: Kasey Dunaway M.D. on 10/01/2023 at 17:35 Approved by: Kasey Dunaway M.D. on 10/01/2023 at 17:40
--- NOTE | 2023-10-01 17:36 | ED.FALL ---
HPI - Fall <Heidy Reddy PA-C - Last Filed: 10/01/23 18:49> General Chief Complaint: Fall Stated Complaint: lt rib and back pain s/p fall Time Seen by Provider: 10/01/23 17:09 Source: patient Mode of arrival: Ambulatory History of Present Illness HPI Narrative: 83-year-old male presents to the ED status post a mechanical fall sustained 3 days ago. Patient was skating on a hardwood floor with his 7-year-old granddaughter, when he slipped and fell on his left side. Patient stated that he struck his left lower ribs on the backside, and there is a spot on the left lower side that is extremely painful. Patient states he is had a rib fracture before and that it feels like he broke a rib this time again. Patient denies chest pain, shortness of breath, nausea, vomiting. Patient did not strike his head and there was no LOC. Related Data Home Medications Medication Instructions Recorded Confirmed ASPIRIN (#ASPIRIN) 81 mg PO EVERY OTHER DAY ##0 05/07/13 04/08/23 lisinopril 20 1 tab PO DAILY 04/08/23 04/08/23 mg-hydrochlorothiazide 12.5 mg tablet Previous Rx's Medication Instructions Recorded acyclovir 200 mg capsule 200 mg PO BID #90 tabs 08/11/20 finasteride 5 mg tablet 5 mg PO DAILY #90 tabs 08/11/20 rosuvastatin 10 mg tablet (Crestor) 10 mg PO QDAY #90 tabs 08/11/20 tamsulosin 0.4 mg capsule (Flomax) 0.8 mg (2 x 0.4 mg) PO QDAY #180 08/11/20 tabs escitalopram oxalate 10 mg tablet 10 mg PO DAILY #90 tabs 12/05/20 Allergies Allergy/AdvReac Type Severity Reaction Status Date / Time No Known Drug Allergies Allergy Verified 04/08/23 09:04 Review of Systems <Heidy Reddy PA-C - Last Filed: 10/01/23 18:49> Constitutional Constitutional: Denies chills, Denies fatigue, Denies fever(s), Denies frequent falls, Denies lethargy and Denies weakness Eyes Eyes: Denies change in vision, Denies eye discharge, Denies irritation and Denies loss of vision ENT Ears, Nose, Mouth, and Throat: Denies change in voice, Denies dizziness, Denies neck pain, Denies sore throat and Denies throat swelling Cardiovascular Cardiovascular: Denies chest pain, Denies irregular heart rhythm, Denies lightheadedness, Denies palpitations, Denies dyspnea, Denies dyspnea on exertion and Denies orthopnea Respiratory Respiratory: Denies cough, Denies dyspnea, Denies dyspnea on exertion and Denies wheezing Gastrointestinal Gastrointestinal: Denies abdominal pain, Denies change in bowel habits, Denies diarrhea, Denies nausea and Denies vomiting Musculoskeletal Musculoskeletal: Denies neck pain and Denies numbness Comments: Left-sided rib pain on the backside Integumentary/Breasts Skin/Breast: Denies pruritus, Denies erythema, Denies rash and Denies wounds Neurologic Neurologic: Denies behavioral changes, Denies confusion, Denies dizziness, Denies frequent falls, Denies loss of vision, Denies numbness and Denies weakness Psychiatric Psychiatric: Denies anxiety, Denies behavioral changes, Denies confusion, Denies depression, Denies homicidal ideation and Denies suicidal ideation Endocrine Endocrine: Denies fatigue, Denies flushing and Denies palpitations Hematologic/Lymphatic Hematologic/Lymphatic: Denies easy bruising Allergic/Immunologic Allergic/Immunologic: Denies urticaria, Denies throat swelling and Denies wheezing Patient History <Heidy Reddy PA-C - Last Filed: 10/01/23 18:49> Medical History Impacted cerumen of both ears Neck muscle strain Bruises easily Hearing aid worn Wears glasses Urinary frequency Constipation Hyperlipidemia Seborrheic keratosis (2007) SCCA (squamous cell carcinoma) of skin (2006) BCC (basal cell carcinoma of skin) (2002) Mononucleosis Scarlet fever Knee pain (2008) Chicken pox (1948) Measles (1949) Mumps (1949) Hypertension (1994) Hearing loss (2008) Acne (1957) Eczema (2001) Plantar warts (1958) Osteoarthritis (2011) Migraines (1995) Hip pain (2008) Surgical History Anesthesia History of tonsillectomy (1948) Family History Mother Heart disease Hypertension Hyperlipidemia Pacemaker Father COPD (chronic obstructive pulmonary disease) Sister No problems noted. Sister No problems noted. Family/Other No problems noted. Family/Other No problems noted. Social History household members: spouse Smoking Status: Former smoker Smoking Status: Former smoker Substance Use Type: does not use Exam <Heidy Reddy PA-C - Last Filed: 10/01/23 18:49> Narrative Exam Narrative: Const General:?cooperative, healthy appearing and comfortable [facility] Head:?normal to inspection Ears:?hearing grossly normal bilaterally Nose:?external nose normal Face and sinus:?normal facial exam and sinuses nontender Mouth:?oral mucosae normal Throat:?posterior oropharynx normal Eyes General:?appearance normal, both eyes and all related structures Neck Neck:?normal visual inspection and no lymphadenopathy noted Resp Effort & Inspection:?normal respiratory effort Auscultation:?clear to auscultation bilaterally Cardio Rate:?regular rate Rhythm:?regular rhythm Musculoskeletal There is bony tenderness to palpation of the lower left posterior rib area. No abdominal tenderness. Neuro General:?patient alert, patient awake and patient oriented x3 Initial Vital Signs Initial Vital Signs: Vital Signs Temperature 97.8 F 10/01/23 16:57 Pulse Rate 69 10/01/23 16:57 Respiratory Rate 16 10/01/23 16:57 Blood Pressure 147/67 H 10/01/23 16:57 Pulse Oximetry 96 10/01/23 16:57 Oxygen Delivery Method Room Air 10/01/23 16:57 <Pebbles Suazo DO - Last Filed: 10/11/23 07:35> Initial Vital Signs Initial Vital Signs: Vital Signs Temperature 97.8 F 10/01/23 16:57 Pulse Rate 69 10/01/23 16:57 Respiratory Rate 16 10/01/23 16:57 Blood Pressure 147/67 H 10/01/23 16:57 Pulse Oximetry 96 10/01/23 16:57 Oxygen Delivery Method Room Air 10/01/23 16:57 Course <Heidy Reddy PA-C - Last Filed: 10/01/23 18:49> Orders Ordered: ED Orders 10/01/23 17:09 CT chest wo con Stat 10/01/23 17:47 RT Consult Eval and Treat NOW Vital Signs Vital signs: Vital Signs - 8 hr 10/01/23 16:57 10/01/23 18:14 Temperature 97.8 F Pulse Rate 69 68 Respiratory Rate 16 18 Blood Pressure 147/67 H 136/63 Pulse Oximetry 96 96 Oxygen Delivery Method Room Air Room Air <Pebbles Suazo DO - Last Filed: 10/11/23 07:35> Orders Ordered: ED Orders 10/01/23 17:09 CT chest wo con Stat 10/01/23 17:47 RT Consult Eval and Treat NOW Vital Signs Vital signs: Vital Signs - 8 hr 10/01/23 16:57 10/01/23 18:14 Temperature 97.8 F Pulse Rate 69 68 Respiratory Rate 16 18 Blood Pressure 147/67 H 136/63 Pulse Oximetry 96 96 Oxygen Delivery Method Room Air Room Air MDM - Fall <Heidy Reddy PA-C - Last Filed: 10/01/23 18:49> MDM Narrative Medical decision making narrative: 83-year-old male presents to the ED status post a mechanical fall sustained 3 days ago. Concern for rib fracture versus pneumonia versus contusion versus other. Obtained chest CT which shows a minimally displaced fracture involving the posterior aspect of the left 12th rib. There were some incidental findings with multiple pulmonary nodules. Findings discussed with patient. Patient was provided with incentive spirometry and instructed by respiratory therapy on how to use it in order to prevent pneumonia. Recommend pain control with Tylenol and ibuprofen. Patient declined any opiate pain medications. Recommend follow-up with PCP as soon as possible. ED return precautions discussed with patient. Patient verbalized understanding. Medical records reviewed: Yes Discharge Plan Departure Patient Disposition: Home Clinical Impression: Fracture of rib Qualifiers: Encounter type: initial encounter Rib fracture type: single rib Fracture type: closed Laterality: left Qualified Code(s): S22.32XA - Fracture of one rib, left side, initial encounter for closed fracture Instructions: DI for Rib Fracture Activity Restrictions/Additional Instructions: You were evaluated in the ED today for left lower rib pain. Your CT scan shows a minimally displaced fracture involving the left 12th rib, and this corresponds to the spot that is the most painful. You are being sent home with a spirometer, please use it several times a day in order to take some good deep breaths and prevent pneumonia. Please also take Tylenol 1000 mg every 8 hours. You can also take ibuprofen 600 mg every 8 hours with food for pain. You may take both these medications together or stagger them so you get some medication every 4 hours. Return to the ED if you have worsening symptoms, uncontrolled pain, trouble breathing, chest pain, fever. Please follow-up with your PCP as soon as possible. Prescriptions: No Action ASPIRIN (#ASPIRIN) 81 mg PO EVERY OTHER DAY Qty: 0 acyclovir 200 mg capsule 200 mg PO BID Qty: 90 3RF finasteride 5 mg tablet 5 mg PO DAILY Qty: 90 1RF rosuvastatin [Crestor] 10 mg tablet 10 mg PO QDAY Qty: 90 3RF tamsulosin [Flomax] 0.4 mg capsule 0.8 mg PO QDAY Qty: 180 3RF escitalopram oxalate 10 mg tablet 10 mg PO DAILY Qty: 90 3RF lisinopril-hydrochlorothiazide 20-12.5 mg tablet 1 tab PO DAILY Referrals: Kelly Hoffman MD [Primary Care Provider] - Stand Alone Forms: Patient Portal/API ED Sign-out <Pebbles Suazo DO - Last Filed: 10/11/23 07:35> Cosign ED Attending Costammyature Attestation: I was immediately available in the department for consultation.
[2023-10-01 18:14] VITALS: BP 136/63; PULSE 68; RESP 18; O2SAT 96
== END 2023-10-01 18:33 | disposition home or self-care (01) ==
PROVIDERS: Emergency Provider Student in an Organized Health Care Education/Training Program; Family Provider Student in an Organized Health Care Education/Training Program; PCP Family Medicine
DX: S22.32XA Fracture of one rib, left side, initial encounter for closed fracture (principal); W01.0XXA Fall on same level from slipping, tripping and stumbling without subsequent striking against object, initial encounter
CPT/HCPCS: 71250; 99281

== ENCOUNTER → 2023-11-20 08:01 | Outpatient (CLI) | payer MEDICARE, SELFPAY ==
--- NOTE | 2023-11-20 | DI.ECHO.S_ITS ---
Version: 1 Study ID: [id number] [place] [address] Name: APOLINAR MELTON Study Date: 11/20/2023, 8: 36 AM : 1940 BP: 133 / 76 mmHg Gender: Male Height: 67 in Age: 83 Years Weight: 150 lb BSA: 1.79 mA? Ordering: BIANCA HAMMOND MD Referring: BRIAN ESCOBAR Clinician: Blanca Hobbs Reason For Study: ATRIAL FIBRILLATION, HYPERTENSION, DYSPNEA History: Summary Statements The left ventricle is normal in size and wall thickness. The ejection fraction is estimated to be 55-60%. Left ventricular wall motion is normal. Diastolic parameters suggest a relaxation abnormality of the left ventricle, consistent with probable normal filling pressures. The right ventricle is normal in size and function. The left atrial size is normal. There is mild mitral regurgitation. There is mild to moderate aortic regurgitation. There is no other significant valvular heart disease. The aortic root is normal size. Procedure: A two-dimensional transthoracic echocardiogram with color flow and Doppler was performed. The study quality was technically adequate. There is no prior echocardiogram noted for this patient. The patient was in sinus bradycardia with heart rates between 57-64 bpm during the exam. Left Ventricle: The left ventricle is normal in size and wall thickness. The ejection fraction is estimated to be 55-60%. Left ventricular wall motion is normal. Diastolic parameters suggest a relaxation abnormality of the left ventricle, consistent with probable normal filling pressures. Right Ventricle: The right ventricle is normal in size and function. Atria: The left atrial size is normal. Right atrial size is normal. There is no Doppler evidence for an interatrial shunt. Mitral Valve: The mitral valve is normal in structure and function. There is mild mitral regurgitation. Aortic Valve: The aortic valve is trileaflet. The aortic valve opens well. There is no aortic valve stenosis. There is mild to moderate aortic regurgitation. Tricuspid Valve: The tricuspid valve is normal in structure and function. There is mild tricuspid regurgitation. Pulmonic Valve: The pulmonic valve leaflets are thin and pliable; valve motion is normal. There is mild pulmonic regurgitation. There is no other significant valvular heart disease. Great Vessels: The aortic root is normal size. The dimensions of the ascending aorta are normal. The IVC is of normal diameter and collapses greater than 50% with a sniff. This suggests a low right atrial pressure of 3 mm Hg. Pericardium/ Pleura: There is no pericardial effusion. There is no pleural effusion. 2D and M-Mode Measurements and Calculations LVIDd: 4.7 cm AoV Openin.70 cm LVIDs: 3.0 cm LVOT diam: 2.01 cm IVSd: 0.61 cm Ao root diam: 3.1 cm LVPWd: 0.78 cm asc Aorta Diam: 3.4 cm LV hoyos. diameter/BSA (cm/m^2): 2.6 Ao Arch Diam (Prox Trans): 3.1 cm LV sys. diameter/BSA (cm/m^2): 1.66 EPSS: 0.93 cm RVD1 (basal): 3.4 cm RVD2 (mid): 3.1 cm TAPSE: 2.22 cm LA A4 area: 14.8 vocational rehabilitation teacher? IVC diam: 0.64 cm LA A2 area: 12.5 vocational rehabilitation teacher? RA area: 13.0 vocational rehabilitation teacher? LA length (vol): 4.6 cm RA long axis: 4.6 cm LA vol: 34.3 ml RA vol: 31.3 ml LA vol index: 19.1 ml/mA? RA : 17.5 ml/mA? Doppler Measurements and Calculations Ao V2 max: 120.3 cm/sec LVOT Max Werner: 95.4 cm/sec Ao V2 mean: 89.4 cm/sec LV V1 max P.6 mmHg Ao V2 VTI: 26.5 cm LV V1 VTI: 21.6 cm Ao max P.8 mmHg SV(LVOT): 68.5 ml Ao mean P.5 mmHg JARVIS(I,D): 2.6 vocational rehabilitation teacher? JARVIS(V,D): 2.5 vocational rehabilitation teacher? JARVIS indexed to BSA (cm^2/m^2): 1.44 sev ratio: 0.81 AI P1/2t: 738.3 msec AI dec slope: 148.6 cm/secA? MV E max werner: 57.8 cm/sec MV dec time: 0.24 sec MV A max werner: 72.6 cm/sec MV E/A: 0.80 Med Peak E' Werner: 5.3 cm/sec Lat Peak E' Werner: 6.5 cm/sec E/e' average: 9.9 PA V2 max: 100.4 cm/sec PA mean P.16 mmHg Electronically signed by: Bradly Isabel 11/20/2023, 2: 16 PM
== END ==
PROVIDERS: Family Provider Student in an Organized Health Care Education/Training Program; PCP Family Medicine; Referring Provider Family Medicine; Visit Provider Family Medicine
DX: I08.3 Combined rheumatic disorders of mitral, aortic and tricuspid valves (principal); I48.0 Paroxysmal atrial fibrillation; R06.09 Other forms of dyspnea
CPT/HCPCS: 93306

== ENCOUNTER → 2023-12-12 09:05 | Outpatient (CLI) | payer MEDICARE, SELFPAY ==
--- NOTE | 2023-12-13 01:44 | DI.NM.S_ITS ---
DATE OF SERVICE: 12/12/2023 PROCEDURE: Exercise perfusion study. INDICATIONS: Atrial fibrillation, dyspnea. RADIOPHARMACEUTICAL: 24.8 millicurie technetium-99m Myoview IV was injected at stress and 9.7 millicurie technetium-99m Myoview IV was injected at rest. CARDIAC STRESS: Patient underwent exercise perfusion study under the supervision of an attending staff. He walked on Michael protocol for 7 minutes and 33 seconds, achieved maximum heart rate of 153, which was 111% of target heart rate, 10.1 METS of workload, SHERRY -49%. Baseline rhythm, sinus. During stress, no convincing ischemic changes seen. Resting blood pressure 160/80 and peak blood pressure 200/78 mmHg. Rare PVCs without any complex arrhythmias. At the end of exercise, patient had shortness of breath. No chest pain. RAW DATA: There is increased subdiaphragmatic activity. GATED STUDY: Resting LV ejection fraction 69% and stress LV ejection fraction 75% without any obvious wall motion abnormalities. Resting end- diastolic volume 81 mL. TID ratio 0.69, which is within normal limits. Lung/heart ratio 0.24, which is within normal limits. MYOCARDIAL PERFUSION SCAN: Stress supine, resting supine and stress prone images were compared to each other. Stress supine and resting supine images revealed small size, mildly decreased perfusion of inferior wall which completely resolved during stress prone images, suggestive of diaphragmatic tissue attenuation artifact. CONCLUSION: I will call this study a normal myocardial perfusion study with evidence of tissue attenuation artifact like diaphragmatic tissue attenuation artifact, which completely resolved during stress prone images. Good exercise tolerance. Normal hemodynamic response. No anginal symptoms. No significant ischemic EKG changes or complex arrhythmias. Patient had exercise perfusion study in June 2015, at that time also he had similar perfusion changes. At that time, he was able to walk per Michael protocol for 11 minute and 9 seconds. Overall, low-risk myocardial perfusion scan. Kervin Leblanc - BOTTOM TURNING LATHE TURNER/joycelyn/ec doc#: [id number]/job#: [id number] dd: 12/12/2023 17:02:00 dt: 12/13/2023 01:32:00 DICTATING MD/COPIES TO: Araseli Ricks MD COPIES MNE: GABRIEL;
== END ==
LOC: NUCM 09:06
PROVIDERS: Family Provider Student in an Organized Health Care Education/Training Program; PCP Family Medicine; Referring Provider Family Medicine; Visit Provider Family Medicine
DX: I48.0 Paroxysmal atrial fibrillation (principal); R06.09 Other forms of dyspnea; I10 Essential (primary) hypertension
CPT/HCPCS: 78452; 93017; A9502

== ENCOUNTER → 2024-02-11 14:03 | Outpatient (CLI) | payer MEDICARE, SELFPAY ==
[2024-02-13 18:36] LABS: Fecal Immunochemical Test Negative (Negative)
== END ==
PROVIDERS: Family Provider Student in an Organized Health Care Education/Training Program; PCP Family Medicine; Referring Provider Family Medicine; Visit Provider Family Medicine
DX: Z12.11 Encounter for screening for malignant neoplasm of colon (principal)
CPT/HCPCS: 82274

== ENCOUNTER → 2024-04-02 08:17 | Outpatient (CLI) | payer MEDICARE, SELFPAY ==
[2024-04-02 08:35] LABS: Add Manual Diff / Slide Review NO; Basophils Absolute Auto 100 /uL (0-100); Basophils Percent Auto 1.3 % (0-2); Eosinophils Absolute Auto 200 /uL (0-450); Eosinophils Percent Auto 4.7 % (2-4); Hematocrit 44.3 % (41-53); Hemoglobin 15.3 g/dL (13.5-17.5); Lymphocytes Absolute Auto 1700 /uL (1100-4500); Lymphocytes Percent Auto 36.3 % (25-40); Mean Corpuscular HGB Conc 34.5 % (30-36); Mean Corpuscular Hemoglobin 31.1 PG (26-34); Mean Corpuscular Volume 90.1 fL (80-100); Monocytes Absolute Auto 400 /uL (0-900); Monocytes Percent Auto 9.6 % (3-14); Neutrophils Absolute Auto 2200 /uL (1500-7000); Neutrophils Percent Auto 48.1 % (50-75); Platelet Count 216 X10^3/uL (150-400); Red Blood Cell Count 4.91 X10^6/uL (4.5-5.9); Red Cell Distribution Width 13.5 % (11.6-14.8); White Blood Cell Count 4.6 X10^3/uL (4.5-11.0)
[2024-04-02 09:10] LABS: Alanine Aminotransferase 28 IU/L (<50); Albumin Globulin Ratio 1.9 (1.0-2.8); Alkaline Phosphatase 39 U/L (38-126); Aspartate Aminotransferase 32 IU/L (17-59); BUN Creatinine Ratio 18.2 (6-22); Bilirubin Total 0.7 mg/dL (0.2-1.3); Blood Urea Nitrogen 18 mg/dL (9-20); Carbon Dioxide 27 mmol/L (22-32); Chloride 107 mmol/L (98-107); Cholesterol 156 mg/dL (140-199); Estimated Glomerular Filt Rate > 60 mL/min (>60); Globulin 2.1 g/dL (1.7-4.1); Glucose 99 mg/dL (80-110); HDL Cholesterol 54 mg/dL (40-60); HEMOLYSIS < 15 (0-50); LDL Cholesterol Calculated 85 mg/dL (<100); Sodium 137 mmol/L (137-145); Total Protein 6.1 g/dL (6.3-8.2); Triglycerides 86 mg/dL (35-150)
== END ==
PROVIDERS: Family Provider Student in an Organized Health Care Education/Training Program; PCP Family Medicine; Referring Provider Family Medicine; Visit Provider Family Medicine
DX: I10 Essential (primary) hypertension (principal); E78.5 Hyperlipidemia, unspecified
CPT/HCPCS: 36415; 80053; 80061; 85025

== ENCOUNTER → 2025-04-07 08:36 | Outpatient (CLI) | payer MEDICARE, SELFPAY ==
[2025-04-07 09:34] LABS: Hematocrit 44.5 % (41-53); Hemoglobin 15.3 g/dL (13.5-17.5); Mean Corpuscular HGB Conc 34.5 % (30-36); Mean Corpuscular Hemoglobin 31.5 PG (26-34); Mean Corpuscular Volume 91.4 fL (80-100); Platelet Count 216 X10^3/uL (150-400); Red Blood Cell Count 4.87 X10^6/uL (4.5-5.9); Red Cell Distribution Width 12.9 % (11.6-14.8); White Blood Cell Count 4.2 X10^3/uL (4.5-11.0)
[2025-04-07 10:05] LABS: Alanine Aminotransferase 24 IU/L (<50); Albumin 4.3 g/dL (3.5-5.0); Alkaline Phosphatase 37 U/L (38-126); Aspartate Aminotransferase 28 IU/L (17-59); BUN Creatinine Ratio 18.8 (6-22); Bilirubin Total 0.8 mg/dL (0.2-1.3); Blood Urea Nitrogen 19 mg/dL (9-20); Calcium 9.7 mg/dL (8.4-10.2); Carbon Dioxide 28 mmol/L (22-32); Chloride 97 mmol/L (98-107); Cholesterol 162 mg/dL (140-199); Estimated Glomerular Filt Rate > 60 mL/min (>60); Globulin 2.1 g/dL (1.7-4.1); Glucose 97 mg/dL (70-99); HDL Cholesterol 49 mg/dL (40-60); HEMOLYSIS < 15 (0-50); LDL Cholesterol Calculated 97 mg/dL (<100); Potassium 4.3 mmol/L (3.4-5.1); Sodium 132 mmol/L (137-145); Total Protein 6.4 g/dL (6.3-8.2); Triglycerides 80 mg/dL (35-150)
== END ==
PROVIDERS: Family Provider Student in an Organized Health Care Education/Training Program; PCP Family Medicine; Referring Provider Family Medicine; Visit Provider Family Medicine
DX: E78.5 Hyperlipidemia, unspecified (principal); I10 Essential (primary) hypertension
CPT/HCPCS: 36415; 80053; 80061; 85027

== ENCOUNTER → 2025-04-29 09:15 | Outpatient (CLI) | payer MEDICARE, SELFPAY ==
--- NOTE | 2025-04-29 09:16 | DI.RAD.S_ITS ---
PROCEDURE: XR KUB INDICATIONS: low back pain, lumbar stenosis, bilateral hip pain TECHNIQUE: One view of the abdomen acquired. COMPARISON: None. FINDINGS: Stool gas pattern: Normal-no evidence of ileus or obstruction. No free intraperitoneal or extraperitoneal air. No gross evidence of ascites Soft tissues: Scattered small pelvic calcifications are likely phleboliths or granulomas. Ureteral stone be unlikely i unless there are correlating symptoms No soft tissue masses. Organs: No gross evidence for organomegaly. IMPRESSION: Normal abdomen Dictated by: Dar Cortez M.D. on 04/30/2025 at 11:01 Approved by: Dar Cortez M.D. on 04/30/2025 at 11:02
--- NOTE | 2025-04-29 09:16 | DI.RAD.S_ITS ---
PROCEDURE: XR LUMBAR SPINE MIN 4V INDICATIONS: low back pain, lumbar stenosis, bilateral hip pain TECHNIQUE: 5 views of the lumbar spine were acquired, including bilateral oblique views. COMPARISON: [facility], , XR LUMBAR SPINE 2-3V, 03/12/2023, 9:01. FINDINGS: Lumbar spine curvature and alignment: Moderate dextroscoliosis of lower thoracic and lumbar spine shows slight worsening since the 2022 comparison exam Bones: Mild left lateral wedging of the L3-L4 and right lateral wedging of L5 vertebral bodies seen as before Disc spaces: Moderate L1-2, severe L2-3, L3-4, L4-5 and L5-S1 degenerative disc disease again noted. There is moderate L3-4 and severe L4-5 and L5-S1 degenerative facet disease. Soft tissues: No soft tissue swelling, calcification or mass. IMPRESSION: Severe multilevel degeneration-slight progression Dictated by: Dar Cortez M.D. on 04/30/2025 at 10:58 Approved by: Dar Cortez M.D. on 04/30/2025 at 11:00
== END ==
PROVIDERS: Family Provider Family Medicine; PCP Family Medicine; Referring Provider Family Medicine; Visit Provider Family Medicine
DX: M51.360 Other intervertebral disc degeneration, lumbar region with discogenic back pain only (principal); M51.370 Other intervertebral disc degeneration, lumbosacral region with discogenic back pain only; M47.816 Spondylosis without myelopathy or radiculopathy, lumbar region; M47.817 Spondylosis without myelopathy or radiculopathy, lumbosacral region; R19.7 Diarrhea, unspecified; K59.00 Constipation, unspecified; M25.551 Pain in right hip; M25.552 Pain in left hip
CPT/HCPCS: 72110; 74018

== ENCOUNTER → 2025-05-04 10:12 | Outpatient (CLI) | payer MEDICARE, SELFPAY ==
--- NOTE | 2025-05-04 10:13 | DI.RAD.S_ITS ---
PROCEDURE: XR HIP W PEL IF DONE TARUN MIN 4V INDICATIONS: low back pain, lumbar stenosis, bilateral hip pain TECHNIQUE: AP pelvis with lateral view(s) of of both hips COMPARISON: None. FINDINGS: Bones: There are no osseous abnormalities. SI and hip joints: Normal in width and alignment without arthritic change. Moderate L4-5 and L5-S1 degenerative disc and facet disease Soft tissues: No soft tissue swelling, calcification or mass. IMPRESSION: Normal pelvis . Moderate L4-5 and L5-S1 degenerative disc and facet disease. Dictated by: Dar Cortez M.D. on 05/05/2025 at 10:47 Approved by: Dar Cortez M.D. on 05/05/2025 at 10:48
== END ==
PROVIDERS: Family Provider Family Medicine; PCP Family Medicine; Referring Provider Family Medicine; Visit Provider Family Medicine
DX: M51.360 Other intervertebral disc degeneration, lumbar region with discogenic back pain only (principal); M51.370 Other intervertebral disc degeneration, lumbosacral region with discogenic back pain only; M47.816 Spondylosis without myelopathy or radiculopathy, lumbar region; M47.817 Spondylosis without myelopathy or radiculopathy, lumbosacral region
CPT/HCPCS: 73521

== ENCOUNTER 2025-06-24 13:00 | Outpatient (RCR) | payer MEDICARE, SELFPAY ==
--- NOTE | 2025-04-27 20:18 | PT.OIE ---
Current Diagnoses Pain in right hip (04/27/25) Pain in left hip (04/27/25) Spinal stenosis, lumbar region without neurogenic claudication (04/27/25) Low back pain, unspecified (04/27/25) Past Medical History (Last Updated 04/14/25 @ 09:27 by Bartolome Covarrubias MD) Acne (1957) BCC (basal cell carcinoma of skin) (2002) Bruises easily Chicken pox (1947) Constipation Eczema (2001) Fracture (~09/2023) Gastroesophageal reflux disease (03/10/15) Hearing aid worn Hearing loss (2008) Hip pain (2008) Hyperlipidemia Hypertension (1994) Knee pain (2008) Measles (194) Migraines (1995) Mononucleosis Mumps (1949) Neck muscle strain Osteoarthritis (2011) Plantar warts (1958) Scarlet fever SCCA (squamous cell carcinoma) of skin (2006) Seborrheic keratosis (2007) Urinary frequency Wears glasses Past Surgical History (Last Updated 03/10/24 @ 21:19 by Bartolome Covarrubias MD) Anesthesia History of tonsillectomy (1948) [place] teeth removed Visit Care Team Role Provider Type Bartolome Covarrubias MD Attending Provider Physician Family Provider Primary Care Provider Referring Provider Specialty: Family Practice Obstetrics Address: [address] [place] [address], [facility] Email: [email or web address] Physical Therapy Initial Evaluation PT-OP-A Visit Information Start: 04/27/25 09:00 Freq: Status: Active Protocol: Document 04/27/25 09:01 TERMINAL CLERK (Rec: 04/27/25 10:36 TERMINAL CLERK Laptop) Out-Patient Physical Therapy Visit Information Visit Information Visit Type Initial Evaluation Visit Start Time 09:05 Visit Stop Time 10:10 Visit Number 1 Number of FOOT CUTTER Visits 0 Evaluation Information Evaluation Date 04/27/25 Precautions Precautions Pt is [place] with B 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 PT-OP-B Current Condition Start: 04/27/25 09:00 Freq: Status: Active Protocol: Document 04/27/25 09:01 TERMINAL CLERK (Rec: 04/27/25 10:36 TERMINAL CLERK Laptop) Current Condition History of Current Condition Onset Date 6 months-1 year Current Complaints low back stiffness and B hip pain, balance/initiation of BLEs History of Current Pt comes into PT today without AD, no apparent LOB. Pt Condition reports low back stiffness that is occasionally painful and B hip difficulties such as pain. Was seen for PT for low back pain about 1-2 years ago and this helped. Pt reports his biggest difficulty and main concern is his balance, feels like once he begins walking after standing for a while his hips turn to go but his legs do not follow for first few seconds and in that time he feels that he looses his balance, reports feeling of disconnect between his brain and legs with internal buzzing feeling. Has been always able to catch himself on chair or counter without a fall, but if standing in center of a room would probably result in a fall. Reports there is a dull pain in low back at all times but feels the stiffness is most difficult and pain in B hips. Pt reports he has always been pretty active with walking, reports has been limited lately with walking his normal distance outside d/t B hip pain. Pain limits his sleeping, hip that he is laying on begins hurting and he must roll over to other side and then the other hip begins hurting. Pt reports about 40 years ago he had bad back pains and went to a doctor who did an X- ray and found bone spurs on lumbar vertebrae and wanted to surgically remove them, got a second opinion who recommended PT without surgery. He did his HEP from last PT 4-5x/wk and this helped but did not get rid of dull pain. Currently has a referral to an orthopedic surgeon to take a look at the bone spurs again. Treatment Goals Patient/Caregiver To understand what is going on in my low back and hips Goals and see if we can fix it, to fix my balance to prevent a fall. PT-OP-C Subjective Start: 04/27/25 09:00 Freq: Status: Active Protocol: Document 04/27/25 09:01 TERMINAL CLERK (Rec: 04/27/25 10:36 TERMINAL CLERK Laptop) Patient Questionnaires Lower Extremity Functional Scale LEFS Score 50/80 LEFS Impairment 20 to 39% Impaired (Score 48-62) Oswestry Low Back Index Oswestry Score 20% Oswestry Impairment 20 to 39% Impaired (Score 20-39) PT-OP-D Balance Start: 04/27/25 09:00 Freq: Status: Active Protocol: Document 04/27/25 09:01 TERMINAL CLERK (Rec: 04/27/25 10:36 TERMINAL CLERK Laptop) Balance Tests Single Limb Standing Single Limb- Right 12s with R hip drop and occasional support on other leg Single Limb- Left 8s with L hip drop after multiple attempts with 2s PT-OP-F Manual Assessment Start: 04/27/25 09:00 Freq: Status: Active Protocol: Document 04/27/25 09:01 TERMINAL CLERK (Rec: 04/27/25 10:36 TERMINAL CLERK Laptop) Manual Assessments Soft Tissue Assessment Soft Tissue Mobility decreased soft tissue mobility without TTP to R lumbar Assessment paraspinals. Decreased soft tissue mobility with TTP to B piriformis, L>R. PT-OP-G Mobility & Gait Start: 04/27/25 09:00 Freq: Status: Active Protocol: Document 04/27/25 09:01 TERMINAL CLERK (Rec: 04/27/25 10:36 TERMINAL CLERK Laptop) OP Gait Assessment Comments Gait Comments Decreased B step length and step width, without AD and without LOB PT-OP-M Strength Start: 04/27/25 09:00 Freq: Status: Active Protocol: Document 04/27/25 09:01 TERMINAL CLERK (Rec: 04/27/25 10:36 TERMINAL CLERK Laptop) Hip Strength Hip Manual Muscle Testing L Flexion (L2) 4- Good- Extension (S1) 4 Good Abduction 4- Good- Comments pain to ant hip active and increased with resisted flex Hip ROM: 90/90: 140 degrees Tadeo test: 2 cm Heel to butt: 9 with mild lifting of hips demonstrating proximal tightness Passive ER in prone: 75 degrees-normal Passive IR in prone: 25 degrees-limited R Flexion (L2) 4 Good Extension (S1) 4- Good- Abduction 4 Good Comments pain to ant hip active and increased with resisted flex 90/90: 145 degrees Tadeo test: 0.5 cm Heel to butt: 7.5 with significant lift of the hips demonstrating proximal tightness Passive ER in prone: 55 degrees-normal Passive IR in prone: 30 degrees-limited Knee Strength Knee Manual Muscle Testing L Flexion (S2) 5 Normal Extension (L3) 4+ Good+ R Flexion (S2) 5 Normal Extension (L3) 5 Normal Ankle/Foot Strength Ankle and Foot Manual Muscle Testing L Dorsiflexion (L4) 5 Normal R Dorsiflexion (L4) 5 Normal PT-OP-Q Treatments Start: 04/27/25 09:00 Freq: Status: Active Protocol: Document 04/27/25 09:01 TERMINAL CLERK (Rec: 04/27/25 10:36 TERMINAL CLERK Laptop) Therapeutic Exercises Sitting Exercises Hip IR Sitting Exercise Hip IR to point of stretch Name Side bilateral Reps/Minutes x10 each leg Comments Added to HEP with HO Standing Exercises Hip Ext Side bilateral Reps/Minutes x10 each Comments Added to HEP with HO, VC for level pelvis/trunk Hip Abd Side bilateral Reps/Minutes x10 each Comments Added to HEP with HO, VC for level pelvis/trunk Marching Side bilateral Reps/Minutes x10 each Comments Added to HEP with HO, VC for level pelvis PT-OP-T Assessment and Plan Start: 04/27/25 09:00 Freq: Status: Active Protocol: Document 04/27/25 09:01 TERMINAL CLERK (Rec: 04/27/25 10:36 TERMINAL CLERK Laptop) Physical Therapy Assessment Rehab Potential Rehabilitation Excellent Potential Evaluation Complexity Number of Personal 1-2 Factors/ Comorbidities Number of Body 4 or More Systems Impaired Clinical Stable Presentation at Evaluation Impairments Impairments Activity Tolerance,Balance,Functional Activities, Functional Mobility,Gait,Pain,ROM,Soft Tissue Mobility, Strength,Transfers Goals 3 Impairment ROM Impairment B hip IR PROM in prone On Eval: L 25 degrees, R 30 degrees Landscape Foreman Goal (LTG) Pt will improve B hip PROM IR in prone to 40-45 degrees in order to improve hip and lumbar flexibility for improved pain and function. LTG Duration 12 weeks 2 Impairment Strength Impairment BLE strength Landscape Foreman Goal (LTG) Pt will demonstrate improved BLE hip strength testing at least 4+/5 on all muscle groups to improve function. LTG Duration 12 weeks 1 Impairment balance Impairment impaired SLS on eval: R 12s, L 8s Short Term Goal (STG Pt will improve balance via SLS to 15s on even surface ) with mild trunk sway and without hip drop B in order to improve safety and function. STG Duration 6 weeks Landscape Foreman Goal (LTG) Pt will improve balance during transitional movement of turning to walk to R and L side after standing in place for 30s with immediate initiation of BLEs and without LOB in order to improve safety. LTG Duration 12 weeks Assessment Summary Assessment Pt presents to PT d/t low level B chronic back pain, low back stiffness, B hip pain which limits his walking /activity endurance, and decreased balance/decreased initiation of BLEs when transitioning from standing to turning and walking. Tests and measures demonstrate decreased balance/hip stability via SLS L deficit greater than R, decreased soft tissue mobility to R lumbar paraspinal muscles and B piriformis, decreased muscle length of B hip flexors, B quads, and B hip IRs with L impairment greater than R, and decreased B hip strength with pain to ant hip with hip flex, L deficits greater than R. PT will continue to assess functional transitions and feeling of decreased initiation of BLEs causing balance impairment. Pt will highly benefit from skilled PT intervention to address deficits and improve functional mobility and prevent falls. Physical Therapy Plan Frequency and Duration Frequency of 1-2x/wk Treatment Duration of 12 treatment (weeks) Plan of Care Start 04/27/25 Date Plan of Care End 07/20/25 Date Therapeutic Interventions Therapeutic Balance Training,Coordination Training,Gait Training, Interventions Home Exercise Program,Joint Mobilizations,Manual Therapy,Neuromuscular Re-education,Patient/Caregiver Education,Soft Tissue Mobilization,Taping,Therapeutic Activities,Therapeutic Exercises Modalities Cold Pack/Ice Massage,Electric Stimulation,Hot Packs, Iontophoresis,Traction- Mechanical,Ultrasound Next Visit Focus/Plan Next Note Type Treatment Note Next Visit Plan Assess lumbar AROM, assess transitional movements, HEP with HO: PPT, arsen, figure 4 stretch, quad stretch, tadeo stretch
--- NOTE | 2025-04-29 09:05 | PT.OTN ---
Current Diagnoses Pain in right hip (04/29/25) Pain in left hip (04/29/25) Spinal stenosis, lumbar region without neurogenic claudication (04/29/25) Low back pain, unspecified (04/29/25) Physical Therapy Treatment Note PT-OP-A Visit Information Start: 04/27/25 09:00 Freq: Status: Active Protocol: Document 04/29/25 08:21 SOCIAL MEDIA SENIOR ASSOCIATE (Rec: 04/29/25 09:04 SOCIAL MEDIA SENIOR ASSOCIATE Laptop) Out-Patient Physical Therapy Visit Information Visit Information Visit Type Treatment Note Visit Start Time 08:20 Visit Stop Time 09:02 Visit Number 2 Number of PRODUCT DEVELOPMENT WORKER Visits 0 Evaluation Information Evaluation Date 04/27/25 Precautions Precautions Pt is [place] with B 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 PT-OP-B Current Condition Start: 04/27/25 09:00 Freq: Status: Active Protocol: Document 04/27/25 09:01 SOCIAL MEDIA SENIOR ASSOCIATE (Rec: 04/27/25 10:36 SOCIAL MEDIA SENIOR ASSOCIATE Laptop) Current Condition History of Current Condition Onset Date 6 months-1 year Current Complaints low back stiffness and B hip pain, balance/initiation of BLEs History of Current Pt comes into PT today without AD, no apparent LOB. Pt Condition reports low back stiffness that is occasionally painful and B hip difficulties such as pain. Was seen for PT for low back pain about 1-2 years ago and this helped. Pt reports his biggest difficulty and main concern is his balance, feels like once he begins walking after standing for a while his hips turn to go but his legs do not follow for first few seconds and in that time he feels that he looses his balance, reports feeling of disconnect between his brain and legs with internal buzzing feeling. Has been always able to catch himself on chair or counter without a fall, but if standing in center of a room would probably result in a fall. Reports there is a dull pain in low back at all times but feels the stiffness is most difficult and pain in B hips. Pt reports he has always been pretty active with walking, reports has been limited lately with walking his normal distance outside d/t B hip pain. Pain limits his sleeping, hip that he is laying on begins hurting and he must roll over to other side and then the other hip begins hurting. Pt reports about 40 years ago he had bad back pains and went to a doctor who did an X- ray and found bone spurs on lumbar vertebrae and wanted to surgically remove them, got a second opinion who recommended PT without surgery. He did his HEP from last PT 4-5x/wk and this helped but did not get rid of dull pain. Currently has a referral to an orthopedic surgeon to take a look at the bone spurs again. Treatment Goals Patient/Caregiver To understand what is going on in my low back and hips Goals and see if we can fix it, to fix my balance to prevent a fall. PT-OP-C Subjective Start: 04/27/25 09:00 Freq: Status: Active Protocol: Document 04/29/25 08:21 SOCIAL MEDIA SENIOR ASSOCIATE (Rec: 04/29/25 09:04 SOCIAL MEDIA SENIOR ASSOCIATE Laptop) OP-PT Subjective Patient Comments Patient Comments Pt reports he was able to work on HEP x1 since eval 2 days ago and has no questions, reports current 10/30 to B low back PT-OP-D Balance Start: 04/27/25 09:00 Freq: Status: Active Protocol: Document 04/27/25 09:01 SOCIAL MEDIA SENIOR ASSOCIATE (Rec: 04/27/25 10:36 SOCIAL MEDIA SENIOR ASSOCIATE Laptop) Balance Tests Single Limb Standing Single Limb- Right 12s with R hip drop and occasional support on other leg Single Limb- Left 8s with L hip drop after multiple attempts with 2s PT-OP-F Manual Assessment Start: 04/27/25 09:00 Freq: Status: Active Protocol: Document 04/27/25 09:01 SOCIAL MEDIA SENIOR ASSOCIATE (Rec: 04/27/25 10:36 SOCIAL MEDIA SENIOR ASSOCIATE Laptop) Manual Assessments Soft Tissue Assessment Soft Tissue Mobility decreased soft tissue mobility without TTP to R lumbar Assessment paraspinals. Decreased soft tissue mobility with TTP to B piriformis, L>R. PT-OP-G Mobility & Gait Start: 04/27/25 09:00 Freq: Status: Active Protocol: Document 04/27/25 09:01 SOCIAL MEDIA SENIOR ASSOCIATE (Rec: 04/27/25 10:36 SOCIAL MEDIA SENIOR ASSOCIATE Laptop) OP Gait Assessment Comments Gait Comments Decreased B step length and step width, without AD and without LOB PT-OP-M Strength Start: 04/27/25 09:00 Freq: Status: Active Protocol: Document 04/27/25 09:01 SOCIAL MEDIA SENIOR ASSOCIATE (Rec: 04/27/25 10:36 SOCIAL MEDIA SENIOR ASSOCIATE Laptop) Hip Strength Hip Manual Muscle Testing L Flexion (L2) 4- Good- Extension (S1) 4 Good Abduction 4- Good- Comments pain to ant hip active and increased with resisted flex Hip ROM: 90/90: 140 degrees Tadeo test: 2 cm Heel to butt: 9 with mild lifting of hips demonstrating proximal tightness Passive ER in prone: 75 degrees-normal Passive IR in prone: 25 degrees-limited R Flexion (L2) 4 Good Extension (S1) 4- Good- Abduction 4 Good Comments pain to ant hip active and increased with resisted flex 90/90: 145 degrees Tadeo test: 0.5 cm Heel to butt: 7.5 with significant lift of the hips demonstrating proximal tightness Passive ER in prone: 55 degrees-normal Passive IR in prone: 30 degrees-limited Knee Strength Knee Manual Muscle Testing L Flexion (S2) 5 Normal Extension (L3) 4+ Good+ R Flexion (S2) 5 Normal Extension (L3) 5 Normal Ankle/Foot Strength Ankle and Foot Manual Muscle Testing L Dorsiflexion (L4) 5 Normal R Dorsiflexion (L4) 5 Normal PT-OP-Q Treatments Start: 04/27/25 09:00 Freq: Status: Active Protocol: Document 04/29/25 08:21 SOCIAL MEDIA SENIOR ASSOCIATE (Rec: 04/29/25 09:04 SOCIAL MEDIA SENIOR ASSOCIATE Laptop) Therapeutic Exercises Supine Exercises DKTC Supine Exercise Name attempted SKTC and did not feel stretch Side bilateral Reps/Minutes 30sx2 Comments Added to HEP with HO Hip flexor stretch Supine Exercise Name tadeo stretch off end of bed Side bilateral Reps/Minutes 30sx2 Comments Added to HEP with HO Piriformis stretch Supine Exercise Name figure 4 Side bilateral Equipment Used towel to hold Reps/Minutes 30sx2 Comments Added to HEP with HO Adductor stretch Supine Exercise Name half butterfly stretch Side bilateral Reps/Minutes 30sx2 Comments Added to HEP with HO Sidelying Exercises Clamshells Side bilateral Resistance gravity Reps/Minutes 10x2 Comments Added to HEP with HO Standing Exercises Quad stretch Standing Exercise foot propped on chair behind Name Side bilateral Equipment Used standard chair Reps/Minutes 30sx2 Comments Added to HEP with HO PT-OP-T Assessment and Plan Start: 04/27/25 09:00 Freq: Status: Active Protocol: Document 04/29/25 08:21 SOCIAL MEDIA SENIOR ASSOCIATE (Rec: 04/29/25 09:04 SOCIAL MEDIA SENIOR ASSOCIATE Laptop) Physical Therapy Assessment Impairments Impairments Activity Tolerance,Balance,Functional Activities, Functional Mobility,Gait,Pain,ROM,Soft Tissue Mobility, Strength,Transfers Goals 3 Impairment ROM Impairment B hip IR PROM in prone On Eval: L 25 degrees, R 30 degrees Turning Machine Operator Helper Goal (LTG) Pt will improve B hip PROM IR in prone to 40-45 degrees in order to improve hip and lumbar flexibility for improved pain and function. LTG Duration 12 weeks 2 Impairment Strength Impairment BLE strength Retirement Goal (LTG) Pt will demonstrate improved BLE hip strength testing at least 4+/5 on all muscle groups to improve function. LTG Duration 12 weeks 1 Impairment balance Impairment impaired SLS on eval: R 12s, L 8s Short Term Goal (STG Pt will improve balance via SLS to 15s on even surface ) with mild trunk sway and without hip drop B in order to improve safety and function. STG Duration 6 weeks Turning Machine Operator Helper Goal (LTG) Pt will improve balance during transitional movement of turning to walk to R and L side after standing in place for 30s with immediate initiation of BLEs and without LOB in order to improve safety. LTG Duration 12 weeks Assessment Summary Assessment Pt tolerated all hip and lumbar stretches and clamshell exercise well with no pain, all added to HEP with HO per pt stating he prefers having a longer HEP list to work on at home. Physical Therapy Plan Frequency and Duration Frequency of 1-2x/wk Treatment Duration of 12 treatment (weeks) Plan of Care Start 04/27/25 Date Plan of Care End 07/20/25 Date Therapeutic Interventions Therapeutic Balance Training,Coordination Training,Gait Training, Interventions Home Exercise Program,Joint Mobilizations,Manual Therapy,Neuromuscular Re-education,Patient/Caregiver Education,Soft Tissue Mobilization,Taping,Therapeutic Activities,Therapeutic Exercises Modalities Cold Pack/Ice Massage,Electric Stimulation,Hot Packs, Iontophoresis,Traction- Mechanical,Ultrasound Next Visit Focus/Plan Next Note Type Treatment Note Next Visit Plan review HEP, PPTs, assess lumbar AROM, assess transitional movements/balance
--- NOTE | 2025-05-04 12:39 | PT.OTN ---
Current Diagnoses Pain in right hip (05/04/25) Pain in left hip (05/04/25) Spinal stenosis, lumbar region without neurogenic claudication (05/04/25) Low back pain, unspecified (05/04/25) Physical Therapy Treatment Note PT-OP-A Visit Information Start: 04/27/25 09:00 Freq: Status: Active Protocol: Document 05/04/25 11:32 NBM (Rec: 05/04/25 12:38 NBM Laptop) Out-Patient Physical Therapy Visit Information Visit Information Visit Type Treatment Note Visit Start Time 11:35 Visit Stop Time 12:25 Visit Number 3 Number of FIRE SERVICES PLUMBER Visits 1 Evaluation Information Evaluation Date 04/27/25 Precautions Precautions Pt is [place] with B 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 PT-OP-B Current Condition Start: 04/27/25 09:00 Freq: Status: Active Protocol: Document 04/27/25 09:01 FILM NUMBERER (Rec: 04/27/25 10:36 FILM NUMBERER Laptop) Current Condition History of Current Condition Onset Date 6 months-1 year Current Complaints low back stiffness and B hip pain, balance/initiation of BLEs History of Current Pt comes into PT today without AD, no apparent LOB. Pt Condition reports low back stiffness that is occasionally painful and B hip difficulties such as pain. Was seen for PT for low back pain about 1-2 years ago and this helped. Pt reports his biggest difficulty and main concern is his balance, feels like once he begins walking after standing for a while his hips turn to go but his legs do not follow for first few seconds and in that time he feels that he looses his balance, reports feeling of disconnect between his brain and legs with internal buzzing feeling. Has been always able to catch himself on chair or counter without a fall, but if standing in center of a room would probably result in a fall. Reports there is a dull pain in low back at all times but feels the stiffness is most difficult and pain in B hips. Pt reports he has always been pretty active with walking, reports has been limited lately with walking his normal distance outside d/t B hip pain. Pain limits his sleeping, hip that he is laying on begins hurting and he must roll over to other side and then the other hip begins hurting. Pt reports about 40 years ago he had bad back pains and went to a doctor who did an X- ray and found bone spurs on lumbar vertebrae and wanted to surgically remove them, got a second opinion who recommended PT without surgery. He did his HEP from last PT 4-5x/wk and this helped but did not get rid of dull pain. Currently has a referral to an orthopedic surgeon to take a look at the bone spurs again. Treatment Goals Patient/Caregiver To understand what is going on in my low back and hips Goals and see if we can fix it, to fix my balance to prevent a fall. PT-OP-C Subjective Start: 04/27/25 09:00 Freq: Status: Active Protocol: Document 05/04/25 11:32 NBM (Rec: 05/04/25 12:38 NBM Laptop) OP-PT Subjective Patient Comments Patient Comments Kervin reports he's been doing exercises, except he doesn't have a firm surface for tadeo stretch and lying on side for clamshells hurts. PT-OP-D Balance Start: 04/27/25 09:00 Freq: Status: Active Protocol: Document 04/27/25 09:01 FILM NUMBERER (Rec: 04/27/25 10:36 FILM NUMBERER Laptop) Balance Tests Single Limb Standing Single Limb- Right 12s with R hip drop and occasional support on other leg Single Limb- Left 8s with L hip drop after multiple attempts with 2s PT-OP-F Manual Assessment Start: 04/27/25 09:00 Freq: Status: Active Protocol: Document 04/27/25 09:01 FILM NUMBERER (Rec: 04/27/25 10:36 FILM NUMBERER Laptop) Manual Assessments Soft Tissue Assessment Soft Tissue Mobility decreased soft tissue mobility without TTP to R lumbar Assessment paraspinals. Decreased soft tissue mobility with TTP to B piriformis, L>R. PT-OP-G Mobility & Gait Start: 04/27/25 09:00 Freq: Status: Active Protocol: Document 04/27/25 09:01 FILM NUMBERER (Rec: 04/27/25 10:36 FILM NUMBERER Laptop) OP Gait Assessment Comments Gait Comments Decreased B step length and step width, without AD and without LOB PT-OP-M Strength Start: 04/27/25 09:00 Freq: Status: Active Protocol: Document 04/27/25 09:01 FILM NUMBERER (Rec: 04/27/25 10:36 FILM NUMBERER Laptop) Hip Strength Hip Manual Muscle Testing L Flexion (L2) 4- Good- Extension (S1) 4 Good Abduction 4- Good- Comments pain to ant hip active and increased with resisted flex Hip ROM: 90/90: 140 degrees Atdeo test: 2 cm Heel to butt: 9 with mild lifting of hips demonstrating proximal tightness Passive ER in prone: 75 degrees-normal Passive IR in prone: 25 degrees-limited R Flexion (L2) 4 Good Extension (S1) 4- Good- Abduction 4 Good Comments pain to ant hip active and increased with resisted flex 90/90: 145 degrees Tadeo test: 0.5 cm Heel to butt: 7.5 with significant lift of the hips demonstrating proximal tightness Passive ER in prone: 55 degrees-normal Passive IR in prone: 30 degrees-limited Knee Strength Knee Manual Muscle Testing L Flexion (S2) 5 Normal Extension (L3) 4+ Good+ R Flexion (S2) 5 Normal Extension (L3) 5 Normal Ankle/Foot Strength Ankle and Foot Manual Muscle Testing L Dorsiflexion (L4) 5 Normal R Dorsiflexion (L4) 5 Normal PT-OP-Q Treatments Start: 04/27/25 09:00 Freq: Status: Active Protocol: Document 05/04/25 11:32 NBM (Rec: 05/04/25 12:38 NBM Laptop) Therapeutic Exercises Supine Exercises DKTC Supine Exercise Name cued hand placement Side bilateral Reps/Minutes 8-10 breaths (~30-40s) Comments HEP review Hip flexor stretch Supine Exercise Name tadeo stretch off end of bed Side bilateral Reps/Minutes 8-10 breaths (~30-40s) Comments HEP review, L>R tightness, tactile cues PPT, emphasized importance for HEP Piriformis stretch Supine Exercise Name 1. figure 4 2. Knee to opp radha (pos feedback, added to HEP) Side bilateral Equipment Used full to modified w/foot on mat table, top ankle lower Reps/Minutes 8-10 breaths (~30-40s) Comments HEP review; emphasis on painfree stretch and breath Adductor stretch Supine Exercise Name half butterfly stretch Side bilateral Reps/Minutes 30sx2 Comments HEP review Sidelying Exercises Clamshells Side bilateral Resistance gravity Reps/Minutes 10x2 Comments HEP review> modified to seated Sitting Exercises Clamshells Sitting Exercise seated edge of chair Name Side bilateral Resistance Lvl 1> Lvl 2 Tb above knees Reps/Minutes Lvl 1 x5, Lvl 2 x10 Comments added to HEP, cues for eccentric control and breathwork Hip IR Sitting Exercise Hip IR to point of stretch Name Side bilateral Reps/Minutes x10 each leg Comments HEP review, L>R tightness noted Standing Exercises Quad stretch Standing Exercise foot propped on chair behind Name Side bilateral Equipment Used standard chair Reps/Minutes 30sx2 Comments HEP review Hip Ext Side bilateral Reps/Minutes x10 each Comments HEP review, cues for neutral foot and breath Hip Abd Side bilateral Reps/Minutes x10 each Comments HEP review, cues for neutral foot and breathwork Marching Side bilateral Reps/Minutes x10 each Comments HEP review, cues upright posture, breathwork Self-Care/Home Management Treatment Education Patient Education Body Mechanics,Home Exercise Program,Pain Management, Posture,Safety Other Education -Edu to pt regarding lumbar hyperextension, iliopsoas m . anatomy w/ visual aids and L>R tightness, and how to perform PPT supine, seated and standing, particularly to perform when pt feels the leg weakness upon standing , prior to standing, and prior to turning after standing some time. -Edu to pt w/ visual aids for TrA m. anatomy and interrelationship with diaphragm and pelvic floor, importance of not holding breath. PT-OP-T Assessment and Plan Start: 04/27/25 09:00 Freq: Status: Active Protocol: Document 05/04/25 11:32 NBM (Rec: 05/04/25 12:38 NBM Laptop) Physical Therapy Assessment Goals 3 Impairment ROM Impairment B hip IR PROM in prone On Eval: L 25 degrees, R 30 degrees Correction Goal (LTG) Pt will improve B hip PROM IR in prone to 40-45 degrees in order to improve hip and lumbar flexibility for improved pain and function. LTG Duration 12 weeks 2 Impairment Strength Impairment BLE strength Correction Goal (LTG) Pt will demonstrate improved BLE hip strength testing at least 4+/5 on all muscle groups to improve function. LTG Duration 12 weeks 1 Impairment balance Impairment impaired SLS on eval: R 12s, L 8s Short Term Goal (STG Pt will improve balance via SLS to 15s on even surface ) with mild trunk sway and without hip drop B in order to improve safety and function. STG Duration 6 weeks Regional Loss Prevention Manager Goal (LTG) Pt will improve balance during transitional movement of turning to walk to R and L side after standing in place for 30s with immediate initiation of BLEs and without LOB in order to improve safety. LTG Duration 12 weeks Assessment Summary Assessment Treatment focus on HEP review and self-care with education regarding iliopsoas m. tightness and use of posterior pelvic tilt in supine, seated and standing as possible strategy for addressing reported leg weakness upon standing and after standing some time and turning . HEP review with focus on finetuning form and incorporating breathwork. Sidelying clamshell modified to seated with Level 2 band due to reported hip pain lying on side, and added single leg to opposite shoulder stretch with positive feedback; Lvl 2 band and updated HO given.
--- NOTE | 2025-05-20 09:01 | PT.OTN ---
Current Diagnoses Pain in right hip (05/20/25) Pain in left hip (05/20/25) Spinal stenosis, lumbar region without neurogenic claudication (05/20/25) Low back pain, unspecified (05/20/25) Physical Therapy Treatment Note PT-OP-A Visit Information Start: 04/27/25 09:00 Freq: Status: Active Protocol: Document 05/20/25 08:20 HOISTMAN (Rec: 05/20/25 09:01 HOISTMAN Laptop) Out-Patient Physical Therapy Visit Information Visit Information Visit Type Treatment Note Visit Start Time 08:20 Visit Stop Time 08:58 Visit Number 4 Number of SHIP PAINTER HELPER Visits 0 Evaluation Information Evaluation Date 04/27/25 Precautions Precautions Pt is [place] with B 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 PT-OP-B Current Condition Start: 04/27/25 09:00 Freq: Status: Active Protocol: Document 04/27/25 09:01 HOISTMAN (Rec: 04/27/25 10:36 HOISTMAN Laptop) Current Condition History of Current Condition Onset Date 6 months-1 year Current Complaints low back stiffness and B hip pain, balance/initiation of BLEs History of Current Pt comes into PT today without AD, no apparent LOB. Pt Condition reports low back stiffness that is occasionally painful and B hip difficulties such as pain. Was seen for PT for low back pain about 1-2 years ago and this helped. Pt reports his biggest difficulty and main concern is his balance, feels like once he begins walking after standing for a while his hips turn to go but his legs do not follow for first few seconds and in that time he feels that he looses his balance, reports feeling of disconnect between his brain and legs with internal buzzing feeling. Has been always able to catch himself on chair or counter without a fall, but if standing in center of a room would probably result in a fall. Reports there is a dull pain in low back at all times but feels the stiffness is most difficult and pain in B hips. Pt reports he has always been pretty active with walking, reports has been limited lately with walking his normal distance outside d/t B hip pain. Pain limits his sleeping, hip that he is laying on begins hurting and he must roll over to other side and then the other hip begins hurting. Pt reports about 40 years ago he had bad back pains and went to a doctor who did an X- ray and found bone spurs on lumbar vertebrae and wanted to surgically remove them, got a second opinion who recommended PT without surgery. He did his HEP from last PT 4-5x/wk and this helped but did not get rid of dull pain. Currently has a referral to an orthopedic surgeon to take a look at the bone spurs again. Treatment Goals Patient/Caregiver To understand what is going on in my low back and hips Goals and see if we can fix it, to fix my balance to prevent a fall. PT-OP-C Subjective Start: 04/27/25 09:00 Freq: Status: Active Protocol: Document 05/20/25 08:20 HOISTMAN (Rec: 05/20/25 09:01 HOISTMAN Laptop) OP-PT Subjective Patient Comments Patient Comments Pt reports no changes since last session, no current pain. PT-OP-D Balance Start: 04/27/25 09:00 Freq: Status: Active Protocol: Document 04/27/25 09:01 HOISTMAN (Rec: 04/27/25 10:36 HOISTMAN Laptop) Balance Tests Single Limb Standing Single Limb- Right 12s with R hip drop and occasional support on other leg Single Limb- Left 8s with L hip drop after multiple attempts with 2s PT-OP-F Manual Assessment Start: 04/27/25 09:00 Freq: Status: Active Protocol: Document 04/27/25 09:01 HOISTMAN (Rec: 04/27/25 10:36 HOISTMAN Laptop) Manual Assessments Soft Tissue Assessment Soft Tissue Mobility decreased soft tissue mobility without TTP to R lumbar Assessment paraspinals. Decreased soft tissue mobility with TTP to B piriformis, L>R. PT-OP-G Mobility & Gait Start: 04/27/25 09:00 Freq: Status: Active Protocol: Document 04/27/25 09:01 HOISTMAN (Rec: 04/27/25 10:36 HOISTMAN Laptop) OP Gait Assessment Comments Gait Comments Decreased B step length and step width, without AD and without LOB PT-OP-M Strength Start: 04/27/25 09:00 Freq: Status: Active Protocol: Document 04/27/25 09:01 HOISTMAN (Rec: 04/27/25 10:36 HOISTMAN Laptop) Hip Strength Hip Manual Muscle Testing L Flexion (L2) 4- Good- Extension (S1) 4 Good Abduction 4- Good- Comments pain to ant hip active and increased with resisted flex Hip ROM: 90/90: 140 degrees Tadeo test: 2 cm Heel to butt: 9 with mild lifting of hips demonstrating proximal tightness Passive ER in prone: 75 degrees-normal Passive IR in prone: 25 degrees-limited R Flexion (L2) 4 Good Extension (S1) 4- Good- Abduction 4 Good Comments pain to ant hip active and increased with resisted flex 90/90: 145 degrees Tadeo test: 0.5 cm Heel to butt: 7.5 with significant lift of the hips demonstrating proximal tightness Passive ER in prone: 55 degrees-normal Passive IR in prone: 30 degrees-limited Knee Strength Knee Manual Muscle Testing L Flexion (S2) 5 Normal Extension (L3) 4+ Good+ R Flexion (S2) 5 Normal Extension (L3) 5 Normal Ankle/Foot Strength Ankle and Foot Manual Muscle Testing L Dorsiflexion (L4) 5 Normal R Dorsiflexion (L4) 5 Normal PT-OP-Q Treatments Start: 04/27/25 09:00 Freq: Status: Active Protocol: Document 05/20/25 08:20 HOISTMAN (Rec: 05/20/25 09:01 HOISTMAN Laptop) Cardio Equipment Recumbent Elliptical (NuStep) Duration (Minutes) 5 Resistance L5 Seat Position 6 Other BUEs and BLEs for warm up Gym Equipment Shuttle Balance Red Details R/L, ant/post Reps/Duration 7 mins Comments for balance and strengthening, mild unsteadiness and LOBs Therapeutic Exercises Sitting Exercises Hip abd Side bilateral Resistance L3 TB Reps/Minutes 1 min Comments for glute med activation before balance training Neuro Re-Education Treatment Balance Activities Hurdles Details forwards, R and L side stepping Surface even Equipment in // bars Reps/Duration 5 hurdles x2 each direction Comments without UE support, no difficulty SLS Details modified with opposite foot toe stabilization Surface even Equipment // bras Reps/Duration 30s each Comments mild sway, without LOB Tandem Surface even Equipment // bars Reps/Duration 30s each Comments mild sway, without LOB Foam Surface foam Equipment // bars Reps/Duration 30s each Comments 1. regular stance 2. narrow VIOLETTE EO 3. narrow VIOLETTE EC no UE support, mild sway but without LOB PT-OP-T Assessment and Plan Start: 04/27/25 09:00 Freq: Status: Active Protocol: Document 05/20/25 08:20 HOISTMAN (Rec: 05/20/25 09:01 HOISTMAN Laptop) Physical Therapy Assessment Goals 3 Impairment ROM Impairment B hip IR PROM in prone On Eval: L 25 degrees, R 30 degrees Spring Bender Goal (LTG) Pt will improve B hip PROM IR in prone to 40-45 degrees in order to improve hip and lumbar flexibility for improved pain and function. LTG Duration 12 weeks 2 Impairment Strength Impairment BLE strength Spring Bender Goal (LTG) Pt will demonstrate improved BLE hip strength testing at least 4+/5 on all muscle groups to improve function. LTG Duration 12 weeks 1 Impairment balance Impairment impaired SLS on eval: R 12s, L 8s Short Term Goal (STG Pt will improve balance via SLS to 15s on even surface ) with mild trunk sway and without hip drop B in order to improve safety and function. STG Duration 6 weeks Spring Bender Goal (LTG) Pt will improve balance during transitional movement of turning to walk to R and L side after standing in place for 30s with immediate initiation of BLEs and without LOB in order to improve safety. LTG Duration 12 weeks Assessment Summary Assessment Treatment focus on balance training and ending with gastroc stretching. Pt tolerated all well with mild unsteadiness. Physical Therapy Plan Frequency and Duration Frequency of 1-2x/wk Treatment Duration of 12 treatment (weeks) Plan of Care Start 04/27/25 Date Plan of Care End 07/20/25 Date Therapeutic Interventions Therapeutic Balance Training,Coordination Training,Gait Training, Interventions Home Exercise Program,Joint Mobilizations,Manual Therapy,Neuromuscular Re-education,Patient/Caregiver Education,Soft Tissue Mobilization,Taping,Therapeutic Activities,Therapeutic Exercises Modalities Cold Pack/Ice Massage,Electric Stimulation,Hot Packs, Iontophoresis,Traction- Mechanical,Ultrasound Next Visit Focus/Plan Next Note Type Treatment Note Next Visit Plan lumbar and hip strengthening and stretching, balance reactions
--- NOTE | 2025-05-25 21:00 | PT.OTN ---
Current Diagnoses Pain in right hip (05/25/25) Pain in left hip (05/25/25) Spinal stenosis, lumbar region without neurogenic claudication (05/25/25) Low back pain, unspecified (05/25/25) Physical Therapy Treatment Note PT-OP-A Visit Information Start: 04/27/25 09:00 Freq: Status: Active Protocol: Document 05/25/25 08:23 TELEPHONE STATION REPAIRER (Rec: 05/25/25 09:09 TELEPHONE STATION REPAIRER Laptop) Out-Patient Physical Therapy Visit Information Visit Information Visit Type Progress Note Visit Start Time 08:22 Visit Stop Time 09:05 Visit Number 5 Number of WARP TYING MACHINE TENDER Visits 0 Precautions Precautions 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 PT-OP-B Current Condition Start: 04/27/25 09:00 Freq: Status: Active Protocol: Document 04/27/25 09:01 TELEPHONE STATION REPAIRER (Rec: 04/27/25 10:36 TELEPHONE STATION REPAIRER Laptop) Current Condition History of Current Condition Onset Date 6 months-1 year Current Complaints low back stiffness and B hip pain, balance/initiation of BLEs History of Current Pt comes into PT today without AD, no apparent LOB. Pt Condition reports low back stiffness that is occasionally painful and B hip difficulties such as pain. Was seen for PT for low back pain about 1-2 years ago and this helped. Pt reports his biggest difficulty and main concern is his balance, feels like once he begins walking after standing for a while his hips turn to go but his legs do not follow for first few seconds and in that time he feels that he looses his balance, reports feeling of disconnect between his brain and legs with internal buzzing feeling. Has been always able to catch himself on chair or counter without a fall, but if standing in center of a room would probably result in a fall. Reports there is a dull pain in low back at all times but feels the stiffness is most difficult and pain in B hips. Pt reports he has always been pretty active with walking, reports has been limited lately with walking his normal distance outside d/t B hip pain. Pain limits his sleeping, hip that he is laying on begins hurting and he must roll over to other side and then the other hip begins hurting. Pt reports about 40 years ago he had bad back pains and went to a doctor who did an X- ray and found bone spurs on lumbar vertebrae and wanted to surgically remove them, got a second opinion who recommended PT without surgery. He did his HEP from last PT 4-5x/wk and this helped but did not get rid of dull pain. Currently has a referral to an orthopedic surgeon to take a look at the bone spurs again. Treatment Goals Patient/Caregiver To understand what is going on in my low back and hips Goals and see if we can fix it, to fix my balance to prevent a fall. PT-OP-C Subjective Start: 04/27/25 09:00 Freq: Status: Active Protocol: Document 05/25/25 08:23 TELEPHONE STATION REPAIRER (Rec: 05/25/25 09:09 TELEPHONE STATION REPAIRER Laptop) OP-PT Subjective Patient Comments Patient Comments Pt reports no changes since last session and has normal amount of pains. Later on in session pt remembers that his R knee has been hurting more with unknown reasons, stays moderate. PT-OP-D Balance Start: 04/27/25 09:00 Freq: Status: Active Protocol: Document 04/27/25 09:01 TELEPHONE STATION REPAIRER (Rec: 04/27/25 10:36 TELEPHONE STATION REPAIRER Laptop) Balance Tests Single Limb Standing Single Limb- Right 12s with R hip drop and occasional support on other leg Single Limb- Left 8s with L hip drop after multiple attempts with 2s PT-OP-F Manual Assessment Start: 04/27/25 09:00 Freq: Status: Active Protocol: Document 04/27/25 09:01 TELEPHONE STATION REPAIRER (Rec: 04/27/25 10:36 TELEPHONE STATION REPAIRER Laptop) Manual Assessments Soft Tissue Assessment Soft Tissue Mobility decreased soft tissue mobility without TTP to R lumbar Assessment paraspinals. Decreased soft tissue mobility with TTP to B piriformis, L>R. PT-OP-G Mobility & Gait Start: 04/27/25 09:00 Freq: Status: Active Protocol: Document 04/27/25 09:01 TELEPHONE STATION REPAIRER (Rec: 04/27/25 10:36 TELEPHONE STATION REPAIRER Laptop) OP Gait Assessment Comments Gait Comments Decreased B step length and step width, without AD and without LOB PT-OP-M Strength Start: 04/27/25 09:00 Freq: Status: Active Protocol: Document 05/25/25 08:23 TELEPHONE STATION REPAIRER (Rec: 05/25/25 20:50 TELEPHONE STATION REPAIRER Laptop) Hip Strength Hip Manual Muscle Testing L Flexion (L2) 4+ Good+ Extension (S1) 4 Good Abduction 4 Good R Flexion (L2) 4+ Good+ Extension (S1) 4+ Good+ Abduction 4 Good PT-OP-Q Treatments Start: 04/27/25 09:00 Freq: Status: Active Protocol: Document 05/25/25 08:23 TELEPHONE STATION REPAIRER (Rec: 05/25/25 09:09 TELEPHONE STATION REPAIRER Laptop) Cardio Equipment Recumbent Elliptical (NuStep) Duration (Minutes) 3 Resistance L4 Seat Position 6 Other BUEs and BLEs for warm up Therapeutic Exercises Supine Exercises Hip IR stretch Side bilateral Reps/Minutes 1 min x2 each side Comments without pain Sidelying Exercises Reverse Clamshells Side bilateral Reps/Minutes 10x3 Comments after stretching Sitting Exercises Hip abd Side bilateral Resistance L4 TB Reps/Minutes 30sx2 Comments for glute med activation before balance training Other Exercises MMT Comments B DF 4+, B knee ext 5, R knee flex 4+/L 5, R hip flex 4 +/R 5, L hip abd 4+/ Neuro Re-Education Treatment Balance Activities SLS Surface even Comments R 32s without trunk sway L 5s, 16s, 18s with minimal trunk sway, no hip drop PT-OP-T Assessment and Plan Start: 04/27/25 09:00 Freq: Status: Active Protocol: Document 05/25/25 08:23 TELEPHONE STATION REPAIRER (Rec: 05/25/25 09:09 TELEPHONE STATION REPAIRER Laptop) Physical Therapy Assessment Goals 3 Impairment ROM Impairment B hip IR PROM in prone On Eval: L 25 degrees, R 30 degrees [facility] Goal (LTG) Pt will improve B hip PROM IR in prone to 40-45 degrees in order to improve hip and lumbar flexibility for improved pain and function. 8/5: Progressing: R 35 degrees, L 45 degrees LTG Duration 12 weeks 2 Impairment Strength Impairment BLE strength [facility] Goal (LTG) Pt will demonstrate improved BLE hip strength testing at least 4+/5 on all muscle groups to improve function. 8/5: Met in all except L hip ext, abd, and R hip abd at 4/5 LTG Duration 12 weeks 1 Impairment balance Impairment impaired SLS on eval: R 12s, L 8s Short Term Goal (STG Pt will improve balance via SLS to 15s on even surface ) with mild trunk sway and without hip drop B in order to improve safety and function. 8/5: MET R 32s without trunk sway, L 5s, 16s, 18s with minimal trunk sway, no hip drop STG Duration 6 weeks MET [facility] Goal (LTG) Pt will improve balance during transitional movement of turning to walk to R and L side after standing in place for 30s with immediate initiation of BLEs and without LOB in order to improve safety. 85: Progressing, reports has only felt disconnected with legs feeling once in last 3-4 days. LTG Duration 12 weeks Assessment Summary Assessment Pt demonstrates progress towards all goals with improved B hip strength however still not meeting goal for all 4+/5 in L hip abd and ext and R hip abd, is progressing in balance via SLS to meet STG of 15s on even ground but L is still less steady than R, and is progressing in B hip IR ROM from L 25 degrees and R 30 degrees to L 45 degrees and R 35 degrees. Pt will benefit from continued PT to continue progressing towards goals. Physical Therapy Plan Frequency and Duration Frequency of 1-2x/wk Treatment Duration of 12 treatment (weeks) Plan of Care Start 04/27/25 Date Plan of Care End 07/20/25 Date Next Visit Focus/Plan Next Note Type Treatment Note Next Visit Plan B lumbar and hip stretching and strengthening, balance reactions
--- NOTE | 2025-05-27 10:00 | PT.OTN ---
Current Diagnoses Pain in right hip (05/27/25) Pain in left hip (05/27/25) Spinal stenosis, lumbar region without neurogenic claudication (05/27/25) Low back pain, unspecified (05/27/25) Physical Therapy Treatment Note PT OP: Lower Back/Lower Extremity Start: 05/26/25 10:12 Freq: Status: Active Protocol: Document 05/27/25 08:13 AB (Rec: 05/27/25 09:31 AB [id number]) Out-Patient Physical Therapy Visit Information Visit Information Visit Type Treatment Note Visit Note Access Code: [email or web address] Visit Start Time 08:17 Visit Stop Time 09:58 Visit Number 6 Number of CLAIM SPECIALIST Visits 1 Progress Note Due 06/24/25 OP-PT Subjective Patient Comments Patient Comments Patient reports he is better, able to walk short distances, but walking a couple of blocks causes hip pain and ascending descending stairs causes R knee pain . SLS L LE 11 sec R LE 30+ sec without UE use pre glute med activation, post L LE 18 sec Gym Equipment Shuttle Balance Red Details Normal VIOLETTE, stagger Reps/Duration 5 min Comments CGA with head turns Therapeutic Exercises Supine Exercises Hip flexor stretch Supine Exercise Name edge of mat Side bilateral Reps/Minutes 60 sec with AROM knee flexion X 10 end of stretch X 2 each LE Comments verbal cues Piriformis stretch Supine Exercise Name 2. Knee to opp radha Side bilateral Reps/Minutes 60 sec Standing Exercises glute med isometric Standing Exercise HEP Name Reps/Minutes one min each LE Comments verbal and visual cues sit to stand Standing Exercise band above knees HEP Name Resistance level 4 band Reps/Minutes 2 X10 Comments Pt ed use of self tactile cues for hip chrissy, verbal and visual cues calf stretch on stairs Standing Exercise gastroc and soleus Name Side bilateral Reps/Minutes 60 sec X 1 each Comments verbal cues ( pt stands with L LE in ER at hip, dec DF terminal stance Hip Ext Side bilateral Reps/Minutes x10 each Comments HEP review, cues for neutral foot and breath Therapeutic Activity Therapeutic Activity stair training Name reciprocal pattern with and without rails 4 six inch steps X 3 Comments VC and visual cues for less quad dom pattern descending and to activate gluteals ascending Neuro Re-Education Treatment Balance Activities SLS Details without UE use Comments X 2 each LE Tandem Details stepping fwd retro with and without head turns Reps/Duration 10 feet X6 Foam Details standing on foam to tapping 6 inch step Surface foam Reps/Duration X 10 Comments CGA Physical Therapy Assessment Goals 3 Impairment ROM Impairment B hip IR PROM in prone On Eval: L 25 degrees, R 30 degrees Longterm Goal (LTG) Pt will improve B hip PROM IR in prone to 40-45 degrees in order to improve hip and lumbar flexibility for improved pain and function. 85: Progressing: R 35 degrees, L 45 degrees LTG Duration 12 weeks 2 Impairment Strength Impairment BLE strength Longterm Goal (LTG) Pt will demonstrate improved BLE hip strength testing at least 4+/5 on all muscle groups to improve function. 85: Met in all except L hip ext, abd, and R hip abd at 4/5 LTG Duration 12 weeks 1 Impairment balance Impairment impaired SLS on eval: R 12s, L 8s Short Term Goal (STG Pt will improve balance via SLS to 15s on even surface ) with mild trunk sway and without hip drop B in order to improve safety and function. 8: MET R 32s without trunk sway, L 5s, 16s, 18s with minimal trunk sway, no hip drop STG Duration 6 weeks MET Longterm Goal (LTG) Pt will improve balance during transitional movement of turning to walk to R and L side after standing in place for 30s with immediate initiation of BLEs and without LOB in order to improve safety. 8: Progressing, reports has only felt disconnected with legs feeling once in last 3-4 days. LTG Duration 12 weeks Assessment Summary Assessment Patient reports no increased knee pain with sit to stand with band using hip hinge, reported increased knee pain start of session with stairs and sit to stand . Physical Therapy Plan Frequency and Duration Frequency of 1-2x/wk Treatment Duration of 12 treatment (weeks) Plan of Care Start 04/27/25 Date Plan of Care End 07/20/25 Date Next Visit Focus/Plan Next Note Type Treatment Note Next Visit Plan B lumbar and hip stretching and strengthening, balance reactions
--- NOTE | 2025-06-03 10:24 | PT.OTN ---
Current Diagnoses Pain in right hip (06/03/25) Pain in left hip (06/03/25) Spinal stenosis, lumbar region without neurogenic claudication (06/03/25) Low back pain, unspecified (06/03/25) Physical Therapy Treatment Note PT OP: Lower Back/Lower Extremity Start: 05/26/25 10:12 Freq: Status: Active Protocol: Document 06/03/25 08:14 AB (Rec: 06/03/25 09:55 AB [id number]) Out-Patient Physical Therapy Visit Information Visit Information Visit Type Treatment Note Visit Note Access Code: [email or web address] Visit Start Time 09:06 Visit Stop Time 09:48 Visit Number 7 Number of PSYCHOLOGICAL EXAMINER Visits 2 Progress Note Due 06/24/25 OP-PT Subjective Patient Comments Patient Comments Patient reports knee pain has resolved, but hips continue to be a problem reports discomfort when standing then trying to turn, happens a lot when washing dishes, demonstrates initiating stepping away from counter with a twist WB equal L and R LE Therapeutic Exercises Supine Exercises Hip IR stretch Side bilateral Reps/Minutes 90n sec x2 each side Comments without pain Standing Exercises glute med isometric Standing Exercise HEP Name Reps/Minutes one min each LE Comments verbal and visual cues sit to stand Standing Exercise band above knees HEP Name Resistance level 4 band Reps/Minutes 2 X10 Comments Pt ed use of self tactile cues for hip chrissy, verbal and visual cues Therapeutic Activity Therapeutic Activity weight shift with stepping Comments Training to simulate WS and step to turn, explanation with use of spine model 8 min Manual Therapy Treatment Consent Patient gave verbal Yes consent for manual treatment Soft Tissue Mobilization B LS area Mobilization Type Sustained Pressure Intensity/Depth Moderate Body Position Sidelying B glute/piriformis Mobilization Type Cross-Friction,Rolling Intensity/Depth Moderate Body Position Sidelying Manual Techniques contract relax Type piriformis stretch Reps/Duration X 1 each LE Physical Therapy Assessment Goals 3 Impairment ROM Impairment B hip IR PROM in prone On Eval: L 25 degrees, R 30 degrees Care Home Goal (LTG) Pt will improve B hip PROM IR in prone to 40-45 degrees in order to improve hip and lumbar flexibility for improved pain and function. 05/25: Progressing: R 35 degrees, L 45 degrees LTG Duration 12 weeks 2 Impairment Strength Impairment BLE strength Hot Repairman Goal (LTG) Pt will demonstrate improved BLE hip strength testing at least 4+/5 on all muscle groups to improve function. 8: Met in all except L hip ext, abd, and R hip abd at 4/5 LTG Duration 12 weeks 1 Impairment balance Impairment impaired SLS on eval: R 12s, L 8s Short Term Goal (STG Pt will improve balance via SLS to 15s on even surface ) with mild trunk sway and without hip drop B in order to improve safety and function. 8: MET R 32s without trunk sway, L 5s, 16s, 18s with minimal trunk sway, no hip drop STG Duration 6 weeks MET Care Home Goal (LTG) Pt will improve balance during transitional movement of turning to walk to R and L side after standing in place for 30s with immediate initiation of BLEs and without LOB in order to improve safety. 8: Progressing, reports has only felt disconnected with legs feeling once in last 3-4 days. LTG Duration 12 weeks Assessment Summary Assessment Patient reports having no pain end of session. Increased verbal and visual cues for hip hinge stand to sit and to sit down slowly. Physical Therapy Plan Frequency and Duration Frequency of 1-2x/wk Treatment Duration of 12 treatment (weeks) Plan of Care Start 04/27/25 Date Plan of Care End 07/20/25 Date Therapeutic Interventions Therapeutic Balance Training,Coordination Training,Gait Training, Interventions Home Exercise Program,Joint Mobilizations,Manual Therapy,Neuromuscular Re-education,Patient/Caregiver Education,Soft Tissue Mobilization,Taping,Therapeutic Activities,Therapeutic Exercises Modalities Cold Pack/Ice Massage,Electric Stimulation,Hot Packs, Iontophoresis,Traction- Mechanical,Ultrasound Next Visit Focus/Plan Next Note Type Treatment Note Next Visit Plan B lumbar and hip stretching and strengthening, balance reactions
--- NOTE | 2025-06-15 19:48 | PT.OTN ---
Current Diagnoses Pain in right hip (06/15/25) Pain in left hip (06/15/25) Spinal stenosis, lumbar region without neurogenic claudication (06/15/25) Low back pain, unspecified (06/15/25) Physical Therapy Treatment Note PT OP: Lower Back/Lower Extremity Start: 05/26/25 10:12 Freq: Status: Active Protocol: Document 06/15/25 09:07 DEALER ACCOUNT MANAGER (Rec: 06/15/25 09:51 DEALER ACCOUNT MANAGER Laptop) Out-Patient Physical Therapy Visit Information Visit Information Visit Type Treatment Note Visit Start Time 09:05 Visit Stop Time 09:48 Visit Number 8 Number of CHIEF ANALYTICS OFFICER Visits 0 Progress Note Due 06/24/25 OP-PT Subjective Patient Comments Patient Comments Pt reports he has faithfully performed HEP and feels progress with B hip pain with 0/10 currently, still feels unsteady feeling of balance disconnect when stepping away after standing up. Therapeutic Exercises Supine Exercises SKTC Supine Exercise Name HEP review Side right Reps/Minutes 1 min x2 Comments VC to pull across body for single knee to opposite chest Hip IR stretch Supine Exercise Name manual R hip IR stretch Side right Reps/Minutes 1 min x2 DKTC Supine Exercise Name HEP review Comments no VC needed Hip flexor stretch Supine Exercise Name HEP review Comments no VC needed Piriformis stretch Supine Exercise Name HEP review Side right Reps/Minutes 1 min x2 Comments VC to pull LLE into flexion to stretch RLE vs pulling RLE forward Prone Exercises SLR Side bilateral Reps/Minutes x10 Comments good pelvis stability Sidelying Exercises Clamshells Sidelying Exercise HEP review Name Side bilateral Resistance gravity Reps/Minutes x10 Comments no VC needed Manual Therapy Treatment Consent Patient gave verbal Yes consent for manual treatment Soft Tissue Mobilization B LS area Body Location B lumbar paraspinals, R>L Mobilization Type Cross-Friction,Rolling Intensity/Depth Moderate Body Position Prone B glute/piriformis Body Location B, R>L Mobilization Type Cross-Friction,Rolling Intensity/Depth Moderate Body Position Prone Comments with passive hip IR/ER Neuro Re-Education Treatment Balance Activities Stepping reactions Details Alt forward quick steps, alt lateral quick steps Surface even Equipment in // bars for safety Reps/Duration x10 each LE each direction Comments slight unsteadiness with SBA, no large LOB Physical Therapy Assessment Goals 3 Impairment ROM Impairment B hip IR PROM in prone On Eval: L 25 degrees, R 30 degrees [facility] Goal (LTG) Pt will improve B hip PROM IR in prone to 40-45 degrees in order to improve hip and lumbar flexibility for improved pain and function. 8/5: Progressing: R 35 degrees, L 45 degrees LTG Duration 12 weeks 2 Impairment Strength Impairment BLE strength Liquid Sugar Fortifier Goal (LTG) Pt will demonstrate improved BLE hip strength testing at least 4+/5 on all muscle groups to improve function. 8/5: Met in all except L hip ext, abd, and R hip abd at 4/5 LTG Duration 12 weeks 1 Impairment balance Impairment impaired SLS on eval: R 12s, L 8s Short Term Goal (STG Pt will improve balance via SLS to 15s on even surface ) with mild trunk sway and without hip drop B in order to improve safety and function. 8/5: MET R 32s without trunk sway, L 5s, 16s, 18s with minimal trunk sway, no hip drop STG Duration 6 weeks MET Liquid Sugar Fortifier Goal (LTG) Pt will improve balance during transitional movement of turning to walk to R and L side after standing in place for 30s with immediate initiation of BLEs and without LOB in order to improve safety. 8/5: Progressing, reports has only felt disconnected with legs feeling once in last 3-4 days. LTG Duration 12 weeks Assessment Summary Assessment Pt tolerated all MT and exercises well, noted continued tightness of R hip ER improved with manual stretching, STM to R piriformis and glute and lumbar paraspinals. VC for improving piriformis stretch and glute med stretch in HEP. Pt worked on stepping balance reactions with unsteadiness but without LOB. Physical Therapy Plan Frequency and Duration Frequency of 1-2x/wk Treatment Duration of 12 treatment (weeks) Plan of Care Start 04/27/25 Date Plan of Care End 07/20/25 Date Next Visit Focus/Plan Next Note Type Treatment Note Next Visit Plan manual stretching of R hip ERs, dynamic standing balance to mimic turning and stepping in dynamic directions
--- NOTE | 2025-06-22 12:35 | PT.OTN ---
Current Diagnoses Pain in right hip (06/22/25) Pain in left hip (06/22/25) Spinal stenosis, lumbar region without neurogenic claudication (06/22/25) Low back pain, unspecified (06/22/25) Physical Therapy Treatment Note PT OP: Lower Back/Lower Extremity Start: 05/26/25 10:12 Freq: Status: Active Protocol: Document 06/22/25 11:33 CAREER BASED INTERVENTION COORDINATOR (Rec: 06/22/25 12:35 CAREER BASED INTERVENTION COORDINATOR Laptop) Out-Patient Physical Therapy Visit Information Visit Information Visit Type Progress Note Visit Start Time 11:37 Visit Stop Time 12:24 Visit Number 9 Number of CRUISE STAFF MEMBER Visits 0 Progress Note Due 07/22/25 OP-PT Subjective Patient Comments Patient Comments Pt reports over the weekend he woke up and his hip hurt and would given out while bearing weight into it. If he walks with his RLE IR it did not hurt and give out on him. Hip Strength Hip Manual Muscle Testing L Flexion (L2) 4+ Good+ Extension (S1) 4+ Good+ Abduction 4+ Good+ R Flexion (L2) 4+ Good+ Extension (S1) 4+ Good+ Abduction 4+ Good+ Therapeutic Exercises Supine Exercises SKTC Supine Exercise Name to opposite chest, HEP review Side bilateral Reps/Minutes 1 min x2 Comments VC to pull across body for single knee to opposite chest Piriformis stretch Supine Exercise Name HEP review Side right Equipment Used dowel Reps/Minutes 1 min x2 Sidelying Exercises Reverse Clamshells Side bilateral Reps/Minutes 10x2 Comments after stretching Clamshells Side bilateral Resistance L3 TB Reps/Minutes 10x2 Comments TC x1 to keep hip in neutral, upgraded HEP to this Manual Therapy Treatment Consent Patient gave verbal Yes consent for manual treatment Soft Tissue Mobilization B glute/piriformis Body Location B hip IRs and ERs Body Position prone and supine Comments manual stretching Neuro Re-Education Treatment Balance Activities Stepping reactions Details quick side stepping R and L after standing still for 30s Surface even Comments no unsteadiness or feeling of disconnect with BLEs SLS Details without UE use Comments RLE 40s LLE 26s Physical Therapy Assessment Goals 3 Impairment ROM Impairment B hip IR PROM in prone On Eval: L 25 degrees, R 30 degrees Electrical Mechanical Technician Goal (LTG) Pt will improve B hip PROM IR in prone to 40-45 degrees in order to improve hip and lumbar flexibility for improved pain and function. 05/25: Progressing: R 35 degrees, L 45 degrees 06/22: Progressing: R 40 degrees, L 43 degrees LTG Duration 12 weeks 2 Impairment Strength Impairment BLE strength Retirement Goal (LTG) Pt will demonstrate improved BLE hip strength testing at least 4+/5 on all muscle groups to improve function. 05/25: Met in all except L hip ext, abd, and R hip abd at 4/5 06/22: MET, all 4+/5 LTG Duration 12 weeks 1 Impairment balance Impairment impaired SLS on eval: R 12s, L 8s Short Term Goal (STG Pt will improve balance via SLS to 15s on even surface ) with mild trunk sway and without hip drop B in order to improve safety and function. 05/25: MET R 32s without trunk sway, L 5s, 16s, 18s with minimal trunk sway, no hip drop STG Duration 6 weeks MET Retirement Goal (LTG) Pt will improve balance during transitional movement of turning to walk to R and L side after standing in place for 30s with immediate initiation of BLEs and without LOB in order to improve safety. 05/25: Progressing, reports has only felt disconnected with legs feeling once in last 3-4 days. 06/22: Progressing, unable to reproduce in session and pt unable to reproduce at home but reports has happened a lot less frequently than start of session LTG Duration 12 weeks Assessment Summary Assessment Pt demonstrates progress towards B hip passive IR but still demonstrates decreased ROM and not quite meeting goal, continues to demonstrate R piriformis tightness despite working on stretch daily but changed HEP to use a dowel for deeper stretch, B hip strength has progressed to meet goal of 4+/5 throughout, and balance continues to progress via SLS and feeling of disconnect with legs when turning to walk away after standing for at least 30s per pt report. Continue skilled PT to work on B hip stretching and strengthening R>L. Physical Therapy Plan Frequency and Duration Frequency of 1-2x/wk Treatment Duration of 12 treatment (weeks) Plan of Care Start 04/27/25 Date Plan of Care End 07/20/25 Date Next Visit Focus/Plan Next Note Type Treatment Note Next Visit Plan assess B hip adductor stretching, MT to R piriformis, attempt half kneel hip flexor stretch, dynamic standing balance
--- NOTE | 2025-06-24 18:07 | PT.OTN ---
Current Diagnoses Pain in right hip (06/24/25) Pain in left hip (06/24/25) Spinal stenosis, lumbar region without neurogenic claudication (06/24/25) Low back pain, unspecified (06/24/25) Physical Therapy Treatment Note PT OP: Lower Back/Lower Extremity Start: 05/26/25 10:12 Freq: Status: Active Protocol: Document 06/24/25 12:59 AB (Rec: 06/24/25 13:46 AB [id number]) Out-Patient Physical Therapy Visit Information Visit Information Visit Type Treatment Note Visit Note Access Code: [email or web address] Visit Start Time 13:02 Visit Stop Time 13:45 Visit Number 10 Number of CLINICAL LABORATORY MEDICAL DIRECTOR Visits 1 Progress Note Due 07/22/25 OP-PT Subjective Patient Comments Patient Comments Patient reports he is the same since last session, but overall better quite a bit. Therapeutic Exercises Supine Exercises Hip flexor stretch Supine Exercise Name Mod Tadeo stretch Reps/Minutes 60 sec With AROM knee flex post 60 sec each LE Comments post manual Piriformis stretch Supine Exercise Name knee to opp shoulder Side bilateral Reps/Minutes 60 sec each LE Comments post manual for inc ROM post manual/muscle relaxation Sitting Exercises Hip IR Sitting Exercise Hip IR AROM with ball between knees Name Side bilateral Resistance level one band Reps/Minutes x15 Comments verbal cues Other Exercises 1/2 kneeling hip flexor stretch Other Exercise Name 1. On mat/table 2. On yoga mat at floor HEP Reps/Minutes 60 sec eacH LE each version of stretch Comments verbal and visual cues Manual Therapy Treatment Consent Patient gave verbal Yes consent for manual treatment Soft Tissue Mobilization B illipsoas Mobilization Type Cross-Friction Intensity/Depth Moderate Body Position Hooklying B glute/piriformis Body Location glute/pirifomris Mobilization Type Cross-Friction,Rolling Intensity/Depth Moderate Body Position Sidelying Physical Therapy Assessment Goals 3 Impairment ROM Impairment B hip IR PROM in prone On Eval: L 25 degrees, R 30 degrees Group Home Goal (LTG) Pt will improve B hip PROM IR in prone to 40-45 degrees in order to improve hip and lumbar flexibility for improved pain and function. 05/25: Progressing: R 35 degrees, L 45 degrees 06/22: Progressing: R 40 degrees, L 43 degrees LTG Duration 12 weeks 2 Impairment Strength Impairment BLE strength Group Home Goal (LTG) Pt will demonstrate improved BLE hip strength testing at least 4+/5 on all muscle groups to improve function. 85: Met in all except L hip ext, abd, and R hip abd at 4/5 92: MET, all 4+/5 LTG Duration 12 weeks 1 Impairment balance Impairment impaired SLS on eval: R 12s, L 8s Short Term Goal (STG Pt will improve balance via SLS to 15s on even surface ) with mild trunk sway and without hip drop B in order to improve safety and function. 85: MET R 32s without trunk sway, L 5s, 16s, 18s with minimal trunk sway, no hip drop STG Duration 6 weeks MET Group Home Goal (LTG) Pt will improve balance during transitional movement of turning to walk to R and L side after standing in place for 30s with immediate initiation of BLEs and without LOB in order to improve safety. 8: Progressing, reports has only felt disconnected with legs feeling once in last 3-4 days. 06/22: Progressing, unable to reproduce in session and pt unable to reproduce at home but reports has happened a lot less frequently than start of session LTG Duration 12 weeks Assessment Summary Assessment Good return demonstration for 1/2 hip flexor stretch able to perform floor transfer without UE assist or any assist. Physical Therapy Plan Frequency and Duration Frequency of 1-2x/wk Treatment Duration of 12 treatment (weeks) Plan of Care Start 04/27/25 Date Plan of Care End 07/20/25 Date Next Visit Focus/Plan Next Note Type Treatment Note Next Visit Plan assess B hip adductor stretching, MT to R piriformis, attempt half kneel hip flexor stretch, dynamic standing balance
--- NOTE | 2025-07-01 17:11 | PT.OPDS ---
Called pt to follow up on no scheduled future PT appointments, pt reports he is performing his HEP but it makes him sore, PT recommends to take 1-2 rest days during the week to allow for muscle recovery. Pt requests to be D/C from PT to continue progressing ind at home with HEP. PT informs pt to obtain new referral from doctor to return to PT in the future if new PT needs arise. D/C PT. Current Diagnoses Pain in right hip (06/24/25) Pain in left hip (06/24/25) Spinal stenosis, lumbar region without neurogenic claudication (06/24/25) Low back pain, unspecified (06/24/25) Visit Care Team Role Provider Type Bartolome Covarrubias MD Attending Provider Physician Family Provider Primary Care Provider Referring Provider Specialty: Family Practice Obstetrics Address: [address] [place] [address], [facility] Email: [email or web address] Visit Number Visit Number 10 Discharge Summary PT OP: Lower Back/Lower Extremity Start: 05/26/25 10:12 Freq: Status: Active Protocol: Document 06/24/25 12:59 AB (Rec: 06/24/25 13:46 AB [id number]) Out-Patient Physical Therapy Visit Information Visit Information Visit Type Treatment Note Visit Note Access Code: [email or web address] Visit Start Time 13:02 Visit Stop Time 13:45 Visit Number 10 Number of OPS ANALYST Visits 1 Progress Note Due 07/22/25 OP-PT Subjective Patient Comments Patient Comments Patient reports he is the same since last session, but overall better quite a bit. Therapeutic Exercises Supine Exercises Hip flexor stretch Supine Exercise Name Mod Tadeo stretch Reps/Minutes 60 sec With AROM knee flex post 60 sec each LE Comments post manual Piriformis stretch Supine Exercise Name knee to opp shoulder Side bilateral Reps/Minutes 60 sec each LE Comments post manual for inc ROM post manual/muscle relaxation Sitting Exercises Hip IR Sitting Exercise Hip IR AROM with ball between knees Name Side bilateral Resistance level one band Reps/Minutes x15 Comments verbal cues Other Exercises 1/2 kneeling hip flexor stretch Other Exercise Name 1. On mat/table 2. On yoga mat at floor HEP Reps/Minutes 60 sec eacH LE each version of stretch Comments verbal and visual cues Manual Therapy Treatment Consent Patient gave verbal Yes consent for manual treatment Soft Tissue Mobilization B illipsoas Mobilization Type Cross-Friction Intensity/Depth Moderate Body Position Hooklying B glute/piriformis Body Location glute/pirifomris Mobilization Type Cross-Friction,Rolling Intensity/Depth Moderate Body Position Sidelying Physical Therapy Assessment Goals 3 Impairment ROM Impairment B hip IR PROM in prone On Eval: L 25 degrees, R 30 degrees Fdc Goal (LTG) Pt will improve B hip PROM IR in prone to 40-45 degrees in order to improve hip and lumbar flexibility for improved pain and function. 85: Progressing: R 35 degrees, L 45 degrees 06/22: Progressing: R 40 degrees, L 43 degrees LTG Duration 12 weeks 2 Impairment Strength Impairment BLE strength Fdc Goal (LTG) Pt will demonstrate improved BLE hip strength testing at least 4+/5 on all muscle groups to improve function. 05/25: Met in all except L hip ext, abd, and R hip abd at 4/5 06/22: MET, all 4+/5 LTG Duration 12 weeks 1 Impairment balance Impairment impaired SLS on eval: R 12s, L 8s Short Term Goal (STG Pt will improve balance via SLS to 15s on even surface ) with mild trunk sway and without hip drop B in order to improve safety and function. 8: MET R 32s without trunk sway, L 5s, 16s, 18s with minimal trunk sway, no hip drop STG Duration 6 weeks MET Fdc Goal (LTG) Pt will improve balance during transitional movement of turning to walk to R and L side after standing in place for 30s with immediate initiation of BLEs and without LOB in order to improve safety. 8: Progressing, reports has only felt disconnected with legs feeling once in last 3-4 days. 06/22: Progressing, unable to reproduce in session and pt unable to reproduce at home but reports has happened a lot less frequently than start of session LTG Duration 12 weeks Assessment Summary Assessment Good return demonstration for 1/2 hip flexor stretch able to perform floor transfer without UE assist or any assist. Physical Therapy Plan Frequency and Duration Frequency of 1-2x/wk Treatment Duration of 12 treatment (weeks) Plan of Care Start 04/27/25 Date Plan of Care End 07/20/25 Date Next Visit Focus/Plan Next Note Type Treatment Note Next Visit Plan assess B hip adductor stretching, MT to R piriformis, attempt half kneel hip flexor stretch, dynamic standing balance
== END 2025-07-06 08:52 | disposition home or self-care (01) ==
LOC: PHYS 13:00
PROVIDERS: Family Provider Family Medicine; PCP Family Medicine; Referring Provider Family Medicine; Visit Provider Family Medicine
DX: M54.50 Low back pain, unspecified (principal); M48.061 Spinal stenosis, lumbar region without neurogenic claudication; M25.551 Pain in right hip; M25.552 Pain in left hip
CPT/HCPCS: 97110; 97112; 97140; 97162; 97530; 97535

== ENCOUNTER → 2025-09-24 09:10 | Outpatient (CLI) | payer MEDICARE, SELFPAY ==
--- NOTE | 2025-09-24 09:11 | DI.MRI.S_ITS ---
PROCEDURE: MR LUMBAR SPINE WO CON INDICATIONS: low back pain, weakness TECHNIQUE: Noncontrast sagittal T1 spin echo and T2 fast echo, sagittal STIR, and T2 fast spin echo through the lumbar spine. In cases with scoliosis, additional coronal T2 fast spin echo may be performed. COMPARISON: [facility], MR, MR LUMBAR SPINE WO CON, 04/22/2023, 8:09. FINDINGS: Image quality: Excellent. Alignment and Curvature: There is rightward curvature with apex at L3. Trace retrolisthesis is present L4 on L5 and L5 on S1. Bone Marrow: Marrow is of normal overall signal. Moderate reactive endplate changes are present at L3-4 and L5-S1. No acute vertebral body compression fractures. Spinal Cord: Conus medullaris terminates at the L1 level. Visualized cord demonstrates normal signal and size. Paraspinous Soft Tissues: No paravertebral masses. Hyperintense signal is present within the kidneys bilaterally most consistent with simple cysts. They are unchanged. Discs: Multilevel moderate to severe disc desiccation most severe at L3-4 and L5-S1. T12-L1: No disc bulge, spinal stenosis or foraminal narrowing. No interval change. L1-L2: No disc bulge, spinal stenosis or foraminal narrowing. No interval change. L2-L3: Mild disc bulge with minimal stenosis slightly progressive. Moderate left and mild right foraminal narrowing with facet and ligamentum flavum hypertrophy, unchanged. L3-L4: Mild disc bulge with minimal spinal stenosis, slightly progressive. Mild bilateral foraminal narrowing with facet and ligamentum flavum hypertrophy, unchanged. L4-L5: Mild disc bulge with minimal spinal stenosis, unchanged. Moderate bilateral foraminal narrowing with facet and ligamentum flavum hypertrophy, unchanged. L5-S1: Mild disc bulge without spinal stenosis. Moderate bilateral foraminal narrowing, right greater than left without nerve root compression. Facet and ligamentum flavum hypertrophy are present. No interval change. IMPRESSION: Overall relatively stable interval exam demonstrating disc bulges, spinal stenosis and foraminal narrowing with the latter most significant at L5-S1. Minimal areas of interval progression as noted above. Dictated by: Farida Og M.D. on 09/27/2025 at 9:48 Approved by: Farida Og M.D. on 09/27/2025 at 9:52
== END ==
LOC: MRI 09:10
PROVIDERS: PCP Family Medicine; Referring Provider Physical Medicine & Rehabilitation; Visit Provider Physical Medicine & Rehabilitation
DX: M47.816 Spondylosis without myelopathy or radiculopathy, lumbar region (principal); M51.369 Other intervertebral disc degeneration, lumbar region without mention of lumbar back pain or lower extremity pain; M51.379 Other intervertebral disc degeneration, lumbosacral region without mention of lumbar back pain or lower extremity pain; M48.061 Spinal stenosis, lumbar region without neurogenic claudication; M48.07 Spinal stenosis, lumbosacral region
CPT/HCPCS: 72148